=== PATIENT | female | born 1975 | race Caucasian/White ===

== ENCOUNTER 2018-07-16 14:41 | Emergency (ER) | payer OTHER, SELFPAY ==
[2018-07-16 14:49] VITALS: BP 158/100; PULSE 91; RESP 16; TEMP 36.6; O2SAT 99; BMI 44.2
--- NOTE | 2018-07-16 14:49 | DI.RAD.S_ITS ---
PROCEDURE: XR ANKLE LT MIN 3V INDICATIONS: injury pain TECHNIQUE: 3 views of the ankle were acquired. COMPARISON: [facility], CR, FOOT 3V LEFT, 02/21/2016, 18:24. FINDINGS: Bones: No fractures or dislocations. Ankle mortise is normally aligned. No suspicious bony lesions. Soft tissues: No tibiotalar joint effusion. Soft tissue swelling about the ankle is evident. IMPRESSION: Soft tissue swelling of the left ankle without acute fracture evident. Dictated by: James Simental M.D. on 07/16/2018 at 14:55 Approved by: James Simental M.D. on 07/16/2018 at 14:59
--- NOTE | 2018-07-16 15:26 | ED.LOWEXIN ---
HPI - Extremity Injury (Lower) <PIERCE Bender - Last Filed: 07/16/18 17:10> General Chief Complaint: Extremity Injury, Lower Stated Complaint: LEFT ANKLE 'JACKED UP' Time Seen by Provider: 07/16/18 14:53 Source: patient Mode of arrival: ambulatory Limitations: no limitations History of Present Illness HPI Narrative: there is no actual injury, there is old injury, from 5 years ago, dislocation, surgery done, ever since then, ankle slips in and out of place, friday is slipped out again and it has been hurting ever since, able to walk on it, and it hurts more when moving it or walking on it, denies any other issues, says she also has chronic swelling issues, but the swelling is way better now MD complaint: other Onset (ago): day(s) (4) Type of Injury: other (none) Severity: mild Relieving factors: rest Exacerbating factors: weight bearing and movement Associated symptoms: snap/pop sensation, swelling and ambulatory Other symptoms: none Related Data Home Medications Medication Instructions Recorded Confirmed [CBD] 1 dose PO PRN PRN #0 09/15/17 07/16/18 metoprolol tartrate 25 mg PO BID #0 09/15/17 07/16/18 amitriptyline 25 mg PO BEDTIME 07/16/18 07/16/18 folic acid 1 mg PO DAILY 07/16/18 07/16/18 levothyroxine [Synthroid] 1 tab PO DAILY 07/16/18 07/16/18 magnesium 1 tab PO DAILY 07/16/18 07/16/18 pantoprazole 20 mg PO BID PRN 07/16/18 07/16/18 Previous Rx's Medication Instructions Recorded tramadol [Ultram] 50 mg PO Q6H PRN #20 tab 07/16/18 Allergies Allergy/AdvReac Type Severity Reaction Status Date / Time adhesive Allergy Unknown HIVES FROM Verified 07/16/18 14:49 TAPE codeine Allergy Unknown VOMITING, Verified 07/16/18 14:49 HIVES iodine Allergy Unknown ITCHING, Verified 07/16/18 14:49 HIVES shellfish derived Allergy Unknown VOMITING Verified 07/16/18 14:49 Review of Systems <PIERCE Bender - Last Filed: 07/16/18 17:10> Review of Systems All systems reviewed & are unremarkable except as noted in HPI and below Constitutional Reports as per HPI Musculoskeletal Reports as per HPI, Reports abnormal gait, Denies deformity, Reports limited range of motion, Denies muscle weakness and Denies numbness Integumentary/Breasts Reports as per HPI, Denies unusual bruising and Denies wounds Neurologic Reports abnormal gait and Denies numbness Exam <PIERCE Bender - Last Filed: 07/16/18 17:10> Initial Vital Signs Initial Vital Signs: Vital Signs Temperature 97.8 F 07/16/18 14:49 Pulse Rate 91 H 07/16/18 14:49 Respiratory Rate 16 07/16/18 14:49 Blood Pressure 158/100 H 07/16/18 14:49 Pulse Oximetry 99 07/16/18 14:49 Const General: cooperative, healthy appearing, comfortable and well developed Nutritional Appearance: average body habitus Orientation: alert, awake and oriented x3 Resp Effort & Inspection: normal respiratory effort and able to speak in complete sentences Back/Spine/Pelvis Cervical Spine: cervical ROM normal Thoracic/Lumbar Spine: thoraco-lumbar ROM limited Skin General: no rashes or lesions noted, elasticity normal, turgor normal and warm Neuro General: alert, awake and oriented x3 Cranial Nerves: CN's II-XI intact bilaterally Cognition: normal cognition Speech: speech normal Motor: muscle tone normal throughout Sensory Exam: no sensory deficits noted Extrem General: normal to inspection and full ROM Right upper extremity: full ROM Left upper extremity: full ROM Right lower extremity: full ROM, normal capillary refill and ankle (mild ankle swelling, nontender) Left lower extremity: normal to inspection and full ROM Psych Appearance: grossly normal and well kempt Mental Status: mental status grossly normal Speech and Movement: speech and movement normal Mood: congruent mood Affect: normal affect Attitude: cooperative Thought Process: normal Thought Content: normal Judgment: judgment good <Yaa Munson MD - Last Filed: 07/16/18 20:17> Initial Vital Signs Initial Vital Signs: Vital Signs Temperature 97.8 F 07/16/18 14:49 Pulse Rate 91 H 07/16/18 14:49 Respiratory Rate 16 07/16/18 14:49 Blood Pressure 158/100 H 07/16/18 14:49 Pulse Oximetry 99 07/16/18 14:49 Course <PIERCE Bender - Last Filed: 07/16/18 17:10> Course Narrative: results and dc plan discussed, pt still insisting something is wrong with her ankle because bones pop in and out and it hurts, admits to no f/u with ortho or her pcp, suggested she f/u with ortho for continued pain and mri might be warranted, and we would put ankle stirrup/air brace on it and rx pain meds to help Orders Ordered: ED Orders 07/16/18 14:49 XR ankle LT min 3V Stat Vital Signs - 8 hr 07/16/18 14:49 07/16/18 16:55 Temperature 97.8 F Pulse Rate 91 H 77 Respiratory Rate 16 16 Blood Pressure 158/100 H Blood Pressure [Left Arm] 137/89 Pulse Oximetry 99 97 <Yaa Munson MD - Last Filed: 07/16/18 20:17> Orders Ordered: ED Orders 07/16/18 14:49 XR ankle LT min 3V Stat Vital Signs - 8 hr 07/16/18 14:49 07/16/18 16:55 Temperature 97.8 F Pulse Rate 91 H 77 Respiratory Rate 16 16 Blood Pressure 158/100 H Blood Pressure [Left Arm] 137/89 Pulse Oximetry 99 97 MDM - Extremity Injury (Lower) <PIERCE Bender - Last Filed: 07/16/18 17:10> Differential Diagnosis Likely ankle sprain and strain, ankle fracture and other (dislocation, ankle pain, oa) Imaging Data ankle xray: Radiologist's impression: ECG Data Interpretation: [address] [address] XRay Report Signed Patient: Jhoana Beard CMR#: [id number] : 1975Acct:[id number] Age/Sex: 43 / FDate of Service: 07/16/18 Loc: ED Accession Number: [id number] Procedure: XR ankle LT min 3V Ordering Provider: Yaa Munson MD PROCEDURE: XR ANKLE LT MIN 3V INDICATIONS: injury pain TECHNIQUE: 3 views of the ankle were acquired. COMPARISON: [facility], CR, FOOT 3V LEFT, 02/21/2016, 18:24. FINDINGS: Bones: No fractures or dislocations. Ankle mortise is normally aligned. No suspicious bony lesions. Soft tissues: No tibiotalar joint effusion. Soft tissue swelling about the ankle is evident. IMPRESSION: Soft tissue swelling of the left ankle without acute fracture evident. Dictated by: James Simental M.D. on 07/16/2018 at 14:55 Approved by: James Simental M.D. on 07/16/2018 at 14:59 Discharge Plan Departure Patient Disposition: Home Clinical Impression: Acute ankle pain Discharge Date/Time: 07/16/18 17:11 Interventions: ED Discharge Assessment Last Done: 07/16/18 17:11 Instructions: DI for Ankle Pain Activity Restrictions/Additional Instructions: wear splint daily for one week and then as needed for pain and support Prescriptions: New tramadol [Ultram] 50 mg tablet 50 mg PO Q6H PRN (Reason: pain) Qty: 20 RF: 0 No Action metoprolol tartrate 25 MG tablet 25 mg PO BID Qty: 0 RF: 0 [CBD] 1 dose PO PRN PRN (Reason: pain and sleep) Qty: 0 RF: 0 pantoprazole 20 mg tablet,delayed release (DR/EC) 20 mg PO BID PRN (Reason: Acid Reflux) RF: 0 amitriptyline 25 mg tablet 25 mg PO BEDTIME RF: 0 levothyroxine [Synthroid] 50 mcg tablet 1 tab PO DAILY RF: 0 folic acid 1 mg tablet 1 mg PO DAILY RF: 0 magnesium 1 tab PO DAILY RF: 0 Referrals: Zbigniew Samuels DO [Non-Staff] - Lg Ervin MD [Primary Care Provider] - Terrence Nam MD [Non-Staff] - Andry Lawton DO [Non-Staff] - Santy Kim MD [Non-Staff] - (follow up recommended in 3-5 days)
[2018-07-16 16:55] VITALS: BP 137/89; PULSE 77; RESP 16; O2SAT 97
== END 2018-07-16 17:11 | disposition home or self-care (01) ==
PROVIDERS: Emergency Provider Nurse Practitioner
DX: M25.572 Pain in left ankle and joints of left foot (principal)
CPT/HCPCS: 29540; 73610; 99282; 99283

== ENCOUNTER 2019-04-30 17:15 | Emergency (ER) | payer OTHER, SELFPAY ==
[2019-04-30 17:30] VITALS: BP 193/132; PULSE 106; RESP 16; TEMP 37; O2SAT 99; BMI 42.8
--- NOTE | 2019-04-30 17:30 | DI.CT.S_ITS ---
PROCEDURE: CT CHEST ABD PEL W CON INDICATIONS: ink printer rolled over him, severe left sided 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 2.5 mm thick coronal and sagittal reformats were acquired. Additional 7 mm thick coronal maximum intensity projection (MIP) reformats acquired through the lungs. Optional 10-minute delayed imaging may be performed from the kidneys to the bladder. For radiation dose reduction, the following was used: automated exposure control, adjustment of mA and/or kV according to patient size. COMPARISON: [facility], CT, ABDOMEN/PELVIS WITHOUT CONTRAS, 07/28/2013, 20:33. [facility], CT, ABDOMEN/PELVIS WITH CONTRAST, 12/12/2011, 20:29. [facility], CR, CHEST 1 VIEW, 09/15/2017, 13:05. FINDINGS: Image quality: Excellent. CHEST: Lungs: There are a few scattered bandlike groundglass opacities with a basilar predominance likely representing atelectasis. The differential includes pulmonary contusions but this is considered less likely. No pulmonary lacerations. No acute consolidation. No pneumothorax or hemothorax. Central and peripheral airways appear patent and normal in caliber. Mediastinum: No mediastinal hematomas. Heart size is normal. No pericardial effusion. Thoracic aorta and pulmonary arteries demonstrate normal size and enhancement. No mediastinal or hilar adenopathy. Esophagus is normal in caliber. No hiatal hernia. Chest wall: No rib fractures. No subcutaneous emphysema. No axillary or supraclavicular adenopathy. Thyroid gland demonstrates no discrete nodules. ABDOMEN: Solid organs: Liver is normal in size and enhancement, without lacerations. Gallbladder is surgically absent. Biliary system is mildly dilated with tapering into the ampulla of Vater. Findings may reflect sequelae of prior cholecystectomy. Pancreas enhances normally, without transection. Spleen is normal in size and enhancement, without lacerations. No adrenal hematomas. Both kidneys enhance normally, without hydronephrosis or lacerations. There are small hypodensities in the kidneys bilaterally which are too small to characterize but likely represent cysts. Peritoneum and bowel: No free fluid or air. Small and large bowel loops demonstrate normal wall thickness and caliber. Nodes and vessels: No retroperitoneal or mesenteric adenopathy. Aorta and inferior vena cava are normal in size and enhancement. Miscellaneous: No ventral hernias. PELVIS: Genitourinary: Bladder wall thickness is normal. The uterus is surgically absent. Miscellaneous: No inguinal hernias or adenopathy. Bones: Pelvic ring and hip joints appear intact. No vertebral compression fractures. IMPRESSION: 1. No definite acute traumatic abnormality in the chest, abdomen, or pelvis. 2. Bilateral scattered ground glass opacities likely represent areas of atelectasis. Pulmonary contusions are less likely given the morphology and distribution. 3. No discrete fracture is identified. Dictated by: Kade Palm M.D. on 04/30/2019 at 18:45 Approved by: Kade Palm M.D. on 04/30/2019 at 18:52
--- NOTE | 2019-04-30 17:34 | ED.TRAUMA ---
HPI - Trauma General Chief Complaint: Trauma Stated Complaint: thinks she has bruised or broken ribs Time Seen by Provider: 04/30/19 17:22 Source: patient Mode of arrival: ambulatory Limitations: no limitations History of Present Illness HPI narrative: Patient is a 43-year-old female who presents with left chest and left upper quadrant pain. She said yesterday her riding lawnmower of on top of her she was able to kick it off of her. Initially she thought she was okay however pain in her left upper quadrant and in her chest has gotten worse today. It hurts every time she moves or breathes. She is not vomiting. She denies any head injury no other injuries. Related Data Home Medications Medication Instructions Recorded Confirmed [CBD] 1 dose PO PRN PRN #0 09/15/17 07/16/18 metoprolol tartrate 25 mg PO BID #0 09/15/17 07/16/18 amitriptyline 25 mg PO BEDTIME 07/16/18 07/16/18 folic acid 1 mg PO DAILY 07/16/18 07/16/18 levothyroxine [Synthroid] 1 tab PO DAILY 07/16/18 07/16/18 magnesium 1 tab PO DAILY 07/16/18 07/16/18 pantoprazole 20 mg PO BID PRN 07/16/18 07/16/18 Previous Rx's Medication Instructions Recorded tramadol [Ultram] 50 mg PO Q6H PRN #20 tab 07/16/18 cyclobenzaprine 5 mg PO TID PRN #10 tab 04/30/19 Allergies Allergy/AdvReac Type Severity Reaction Status Date / Time adhesive Allergy Unknown HIVES FROM Verified 04/30/19 17:30 TAPE codeine Allergy Unknown VOMITING, Verified 04/30/19 17:30 HIVES iodine Allergy Unknown ITCHING, Verified 04/30/19 17:30 HIVES shellfish derived Allergy Unknown VOMITING Verified 04/30/19 17:30 Review of Systems Review of Systems ROS Unobtainable: All systems reviewed & are unremarkable except as noted in HPI and below Constitutional Denies chills, Denies fever(s), Denies lethargy and Denies weakness Cardiovascular Reports chest pain (Left side) Respiratory Denies cough, Denies hemoptysis, Reports pain on inspiration and Denies wheezing Gastrointestinal Gastrointestinal: Reports as per HPI and Reports abdominal pain Genitourinary Denies hematuria, Denies flank pain, Denies urinary incontinence and Denies urinary urgency Integumentary/Breasts Denies pruritus, Denies erythema, Denies rash and Denies wounds Neurologic Denies weakness Allergic/Immunologic Denies wheezing [facility] Medical History Hypothyroid (Acute) Social History Smoking Status: Unknown if ever smoked Social History Smoking Status: Unknown if ever smoked Exam Initial Vital Signs Initial Vital Signs: Vital Signs Temperature 98.6 F 04/30/19 17:30 Pulse Rate 106 H 04/30/19 17:30 Respiratory Rate 16 04/30/19 17:30 Blood Pressure 193/132 H 04/30/19 17:30 Pulse Oximetry 99 04/30/19 17:30 GENERAL: Overweight female appears in no acute distress and in [no acute] distress. HEENT: Head atraumatic,EOMI, pupils reactive, face symmetric, CARDIOVASCULAR: Regular rate and rhythm without murmurs, rubs or gallops. Significant tenderness to palpation of left chest but no contusions or abrasions. She is large crusted and there seems to be in no pain to palpation of the breast itself. RESPIRATORY: Breath sounds equal bilaterally, no wheezes rales or rhonchi. ABDOMEN: Soft, pain in left upper quadrant no guarding no rebound no contusion no abrasion EXTREMITIES: Normal range of motion, no clubbing or edema. Neurovascularly intact NEUROLOGICAL: Alert and oriented x4.Normal gait and speech. Cranial nerves II through XII grossly intact. SKIN: Warm, dry, no laceration, no petechiae, no rashes or lesions. Course Orders Ordered: Discontinued Medications Diphenhydramine HCl (Benadryl) 25 mg IV NOW ONE Stop: 04/30/19 17:48 Last Admin: 04/30/19 18:05 Dose: 25 mg Hydromorphone HCl (Dilaudid) 0.5 mg IV NOW ONE Stop: 04/30/19 17:33 Last Admin: 04/30/19 17:56 Dose: 0.5 mg Ketorolac Tromethamine (Toradol) 30 mg IV NOW ONE Stop: 04/30/19 19:05 Last Admin: 04/30/19 19:10 Dose: 30 mg Methylprednisolone (Solu-Medrol 125 Mg Vial) 125 mg IV NOW ONE Stop: 04/30/19 17:48 Last Admin: 04/30/19 17:56 Dose: 125 mg Vital Signs - 8 hr 04/30/19 17:30 Temperature 98.6 F Pulse Rate 106 H Respiratory Rate 16 Blood Pressure 193/132 H Pulse Oximetry 99 MDM - Trauma Lab Data Attestation: I reviewed the patient's lab results. Result diagrams: 04/30/19 17:39 04/30/19 17:39 Lab Results 04/30/19 04/30/19 Range/Units 17:39 17:39 WBC 10.5 (4.5-11.0) X10^3/uL RBC 4.92 (4.0-5.2) X10^6/uL Hgb 13.9 (12.0-16.0) g/dL Hct 41.1 (36-46) % MCV 83.5 (80-100) fL MCH 28.2 (26-34) PG MCHC 33.7 (30-36) % RDW 14.1 (11.6-14.8) % Plt Count 324 (150-400) X10^3/uL Neut % (Auto) 72.5 (50-75) % Lymph % (Auto) 21.4 L (25-40) % [place] % (Auto) 4.2 (3-14) % Eos % (Auto) 1.5 L (2-4) % Baso % (Auto) 0.4 (0-2) % Neut # (Auto) 7600 H (4953-8067) /uL Lymph # (Auto) 2200 (2574-7336) /uL [place] # (Auto) 400 (0-900) /uL Eos # (Auto) 200 (0-450) /uL Baso # (Auto) 0 (0-100) /uL Sodium 142 (137-145) mmol/L Potassium 4.1 (3.4-5.1) mmol/L Chloride 103 (98-107) mmol/L Carbon Dioxide 27 (22-32) mmol/L BUN 17 (7-17) mg/dL Creatinine 1.10 H (0.52-1.04) mg/dL Estimated GFR 53.7 L (>60) mL/min BUN/Creatinine Ratio 15.5 (6-22) Glucose 96 (70-100) mg/dL Calcium 9.7 (8.4-10.2) mg/dL Total Bilirubin 0.4 (0.2-1.3) mg/dL AST 30 (14-36) IU/L ALT 36 (9-52) IU/L Alkaline Phosphatase 117 (38-126) U/L Total Protein 8.3 H (6.3-8.2) g/dL Albumin 4.6 (3.5-5.0) g/dL Globulin 3.7 (1.7-4.1) g/dL Albumin/Globulin Ratio 1.2 (1.0-2.8) Imaging Data CT scan - abdomen: Radiologist's impression: PROCEDURE: CT CHEST ABD PEL W CON INDICATIONS: 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 2.5 mm thick coronal and sagittal reformats were acquired. Additional 7 mm thick coronal maximum intensity projection (MIP) reformats acquired through the lungs. Optional 10-minute delayed imaging may be performed from the kidneys to the bladder. For radiation dose reduction, the following was used: automated exposure control, adjustment of mA and/or kV according to patient size. COMPARISON: [facility], CT, ABDOMEN/PELVIS WITHOUT CONTRAS, 07/28/2013, 20:33. [facility], CT, ABDOMEN/PELVIS WITH CONTRAST, 12/12/2011, 20:29. [facility], CR, CHEST 1 VIEW, 09/15/2017, 13:05. FINDINGS: Image quality: Excellent. CHEST: Lungs: There are a few scattered bandlike groundglass opacities with a basilar predominance likely representing atelectasis. The differential includes pulmonary contusions but this is considered less likely. No pulmonary lacerations. No acute consolidation. No pneumothorax or hemothorax. Central and peripheral airways appear patent and normal in caliber. Mediastinum: No mediastinal hematomas. Heart size is normal. No pericardial effusion. Thoracic aorta and pulmonary arteries demonstrate normal size and enhancement. No mediastinal or hilar adenopathy. Esophagus is normal in caliber. No hiatal hernia. Chest wall: No rib fractures. No subcutaneous emphysema. No axillary or supraclavicular adenopathy. Thyroid gland demonstrates no discrete nodules. ABDOMEN: Solid organs: Liver is normal in size and enhancement, without lacerations. Gallbladder is surgically absent. Biliary system is mildly dilated with tapering into the ampulla of Vater. Findings may reflect sequelae of prior cholecystectomy. Pancreas enhances normally, without transection. Spleen is normal in size and enhancement, without lacerations. No adrenal hematomas. Both kidneys enhance normally, without hydronephrosis or lacerations. There are small hypodensities in the kidneys bilaterally which are too small to characterize but likely represent cysts. Peritoneum and bowel: No free fluid or air. Small and large bowel loops demonstrate normal wall thickness and caliber. Nodes and vessels: No retroperitoneal or mesenteric adenopathy. Aorta and inferior vena cava are normal in size and enhancement. Miscellaneous: No ventral hernias. PELVIS: Genitourinary: Bladder wall thickness is normal. The uterus is surgically absent. Miscellaneous: No inguinal hernias or adenopathy. Bones: Pelvic ring and hip joints appear intact. No vertebral compression fractures. IMPRESSION: 1. No definite acute traumatic abnormality in the chest, abdomen, or pelvis. 2. Bilateral scattered ground glass opacities likely represent areas of atelectasis. Pulmonary contusions are less likely given the morphology and distribution. 3. No discrete fracture is identified. Dictated by: Kade Palm M.D. on 04/30/2019 at 18:45 MDM Narrative Medical decision making narrative: Her pain is significantly better after some Dilaudid. CT is negative for any abnormality. At this time this is likely more of a contusion and some muscle stiffness. She is requesting a muscle relaxer. She does not want any narcotic medications. At this time she is feeling ready and able to go home. Discharge Plan Departure Patient Disposition: Home Clinical Impression: Contusion Qualifiers: Encounter type: initial encounter Contusion area: abdominal wall Qualified Code(s): S30.1XXA - Contusion of abdominal wall, initial encounter Discharge Date/Time: 04/30/19 19:20 Interventions: ED Discharge Assessment Last Done: 04/30/19 19:19 Instructions: Contusion, DI for Trauma Activity Restrictions/Additional Instructions: *You have been diagnosed with you likely have a contusion *What to do: Year CT scan today did not show any bruising or laceration of her internal organs. No broken bones. This is likely contusion. May ice 20-30 minutes at a time. Increased movement as tolerated in the no may hurt a little. Pain is extreme then stop. *Continue to take medications as directed Motrin 800 mg every 8 hours with food if needed for pain Flexeril 5 mg every 8 hours if needed for muscle spasm *Follow up with your primary care provider in 2-3 days *Return to ER if you should have increasing pain shortness of breath or any new, worsening or concerning symptoms Prescriptions: New cyclobenzaprine 5 mg tablet 5 mg PO TID PRN (Reason: muscle spasm) Qty: 10 RF: 0 No Action metoprolol tartrate 25 MG tablet 25 mg PO BID Qty: 0 RF: 0 [CBD] 1 dose PO PRN PRN (Reason: pain and sleep) Qty: 0 RF: 0 pantoprazole 20 mg tablet,delayed release (DR/EC) 20 mg PO BID PRN (Reason: Acid Reflux) RF: 0 amitriptyline 25 mg tablet 25 mg PO BEDTIME RF: 0 levothyroxine [Synthroid] 50 mcg tablet 1 tab PO DAILY RF: 0 folic acid 1 mg tablet 1 mg PO DAILY RF: 0 magnesium 1 tab PO DAILY RF: 0 tramadol [Ultram] 50 mg tablet 50 mg PO Q6H PRN (Reason: pain) Qty: 20 RF: 0 Referrals: Lg Ervin MD [Primary Care Provider] -
[2019-04-30 17:47] LABS: Add Manual Diff / Slide Review NO; Basophils Absolute Auto 0 /uL (0-100); Basophils Percent Auto 0.4 % (0-2); Eosinophils Absolute Auto 200 /uL (0-450); Eosinophils Percent Auto 1.5 % (2-4); Hematocrit 41.1 % (36-46); Hemoglobin 13.9 g/dL (12.0-16.0); Lymphocytes Absolute Auto 2200 /uL (1100-4500); Lymphocytes Percent Auto 21.4 % (25-40); Mean Corpuscular HGB Conc 33.7 % (30-36); Mean Corpuscular Hemoglobin 28.2 PG (26-34); Mean Corpuscular Volume 83.5 fL (80-100); Monocytes Absolute Auto 400 /uL (0-900); Monocytes Percent Auto 4.2 % (3-14); Neutrophils Absolute Auto 7600 /uL (1500-7000); Neutrophils Percent Auto 72.5 % (50-75); Platelet Count 324 X10^3/uL (150-400); Red Blood Cell Count 4.92 X10^6/uL (4.0-5.2); Red Cell Distribution Width 14.1 % (11.6-14.8); White Blood Cell Count 10.5 X10^3/uL (4.5-11.0)
[2019-04-30] MEDS: methylPREDNISolone 125 MG/2 ML VIAL IV (17:56)
[2019-04-30] MEDS: HYDROMORPHONE 1 MG INJ 0.5 MG IV (17:56)
[2019-04-30 17:58] LABS: Alanine Aminotransferase 36 IU/L (9-52); Albumin 4.6 g/dL (3.5-5.0); Albumin Globulin Ratio 1.2 (1.0-2.8); Alkaline Phosphatase 117 U/L (38-126); Aspartate Aminotransferase 30 IU/L (14-36); BUN Creatinine Ratio 15.5 (6-22); Bilirubin Total 0.4 mg/dL (0.2-1.3); Blood Urea Nitrogen 17 mg/dL (7-17); Calcium 9.7 mg/dL (8.4-10.2); Carbon Dioxide 27 mmol/L (22-32); Chloride 103 mmol/L (98-107); Estimated Glomerular Filt Rate 53.7 mL/min (>60); Globulin 3.7 g/dL (1.7-4.1); Glucose 96 mg/dL (70-100); HEMOLYSIS < 15 (0-50); Potassium 4.1 mmol/L (3.4-5.1); Sodium 142 mmol/L (137-145); Total Protein 8.3 g/dL (6.3-8.2)
[2019-04-30] MEDS: diphenhydrAMINE 50 MG/ML VIAL 25 MG IV (18:05)
[2019-04-30 19:03] VITALS: BP 155/105; BP 174/90; PULSE 85; RESP 16; O2SAT 100
[2019-04-30] MEDS: KETOROLAC 60 MG/2 ML VIAL 30 MG IV (19:10)
== END 2019-04-30 19:20 | disposition home or self-care (01) ==
PROVIDERS: Emergency Provider Emergency Medicine
DX: S30.1XXA Contusion of abdominal wall, initial encounter (principal); W31.89XA Contact with other specified machinery, initial encounter; Y93.H2 Activity, gardening and landscaping
CPT/HCPCS: 36591; 71260; 74177; 80053; 85025; 96374; 96375; 99282; 99284; J1170; J1200; J1885; J2930; Q9967

== ENCOUNTER → 2020-02-27 13:58 | Outpatient (CLI) | payer OTHER, SELFPAY ==
[2020-03-02 08:44] LABS: COVID19 Sendout Not Detected (Not Detected)
== END ==
PROVIDERS: Visit Provider Physician Assistant
DX: R05 Cough (principal); R11.0 Nausea; R43.0 Anosmia
CPT/HCPCS: 87635

== ENCOUNTER 2020-11-03 18:27 | Emergency (ER) | payer OTHER, SELFPAY ==
[2020-11-03 19:02] VITALS: BP 179/87; PULSE 87; RESP 18; TEMP 36.6; O2SAT 99; BMI 41.3
--- NOTE | 2020-11-03 21:01 | ED_ITS ---
HPI - Headache General Chief Complaint: Headache Stated Complaint: MIGRANE LEFT EYE RED SWELLING Time Seen by Provider: 11/03/20 18:46 Source: patient Mode of arrival: Wheelchair Limitations: no limitations History of Present Illness HPI Narrative: 45F nonsmoker with history of HTN and headaches presents with her significant other and a chief complaint of a severe, sudden onset left frontal headache that started a few hours prior to arrival. She states that she was in her normal state of health when she developed significant pain about 3 hours prior to arrival. She states it feels different than her typical migraines. Her pain was sudden and severe and behind her left eye. She states her vision was initially blurred in left eye, but denies any other or ongoing neurologic symptoms. Her pain is worse with bright lights or loud noise. She denies any focal neurologic problems such as numbness, tingling or weakness. She denies any recent trauma. She denies neck pain. She denies the use of blood thinners. She denies any fever or chills. She states she has frequent problems with her blood pressure and has had SVT in the past and 1 occasion led to a headache with eye pain very similar to this. She denies any palpitations, chest pain or shortness of breath. Related Data Home Medications Medication Instructions Recorded Confirmed metoprolol tartrate 25 mg PO BID #0 09/15/17 02/27/20 Allergies Allergy/AdvReac Type Severity Reaction Status Date / Time adhesive Allergy Unknown HIVES FROM Verified 11/03/20 19:02 TAPE codeine Allergy Unknown VOMITING, Verified 11/03/20 19:02 HIVES iodine Allergy Unknown ITCHING, Verified 11/03/20 19:02 HIVES shellfish derived Allergy Unknown VOMITING Verified 11/03/20 19:02 Review of Systems Review of Systems ROS Unobtainable: All systems reviewed & are unremarkable except as noted in HPI and below Constitutional Constitutional: Denies chills, Denies fatigue, Denies fever(s), Denies frequent falls, Denies lethargy and Denies weakness Eyes Eyes: Reports blurry vision, Reports change in vision, Denies eye discharge, Reports irritation, Denies loss of vision and Reports eye pain ENT Ears, Nose, Mouth, and Throat: Denies change in voice, Denies dizziness, Denies neck pain, Denies sore throat and Denies throat swelling Cardiovascular Cardiovascular: Denies chest pain, Denies irregular heart rhythm, Denies lightheadedness, Denies palpitations, Denies dyspnea, Denies dyspnea on exertion and Denies orthopnea Respiratory Respiratory: Denies cough, Denies dyspnea, Denies dyspnea on exertion and Denies wheezing Gastrointestinal Gastrointestinal: Denies abdominal pain, Denies change in bowel habits, Denies diarrhea, Reports nausea and Denies vomiting Musculoskeletal Musculoskeletal: Denies neck pain and Denies numbness Integumentary/Breasts Skin/Breast: Denies pruritus, Denies erythema, Denies rash and Denies wounds Neurologic Neurologic: Denies behavioral changes, Denies confusion, Denies dizziness, Denies frequent falls, Denies loss of vision, Denies numbness and Denies weakness Psychiatric Psychiatric: Denies anxiety, Denies behavioral changes, Denies confusion, Denies depression, Denies homicidal ideation and Denies suicidal ideation Endocrine Endocrine: Denies fatigue, Denies flushing and Denies palpitations Hematologic/Lymphatic Hematologic/Lymphatic: Denies easy bruising Allergic/Immunologic Allergic/Immunologic: Denies urticaria, Denies throat swelling and Denies wheezing Patient History Medical History Hypothyroid Social History Smoking Status: Never smoker Smoking Status: Never smoker alcohol intake frequency: holidays/special occasions only Substance Use Type: does not use Exam Narrative Exam Narrative: GENERAL: [45] year old patient appears stated age. Well-nour ished, well-developed patient, in obvious distress. Sitting in a dark room, towel over her eyes HEAD: Atraumatic. Normocephalic. EYES: Pupils equal and reactive. No scleral injection or watering of left eye. Pressure with Tonopen in left eye 15mmHg ENT: Nose without bleeding, purulent drainage. Throat without erythema, tonsillar hypertrophy or exudate. Airway patent. NECK: Trachea midline. Non tender CARDIOVASCULAR: Regular rate and rhythm without murmurs, gallops, or rubs. RESPIRATORY: Clear to auscultation. Breath sounds equal bilaterally. No wheezes, rales, or rhonchi. GASTROINTESTINAL: Abdomen soft, non-tender, nondistended. EXTREMITIES: No edema or joint tenderness. BACK: Nontender without deformity or crepitance. No flank tenderness. NEURO: AOx3. SKIN: No rash or erythema of visible areas NIH Stroke Scale 1a. LOC: Patient is alert and keenly responsive (0) 1b. LOC Questions: Patient answers both LOC questions accurately (0) 1c. LOC Commands: Patient performs both tasks correctly (0) 2. Best Gaze: Normal (0) 3. Visual: No visual loss (0) 4. Facial palsy: Normal symmetrical movements (0) 5. Motor arm: No drift (0) 6. Motor leg: No drift (0) 7. Limb ataxia: Absent (0) 8. Sensory: Normal (0) 9. Best language: No aphasia; normal (0) 10. Dysarthria: Normal (0) 11. Extinction and inattention: No abnormality (0) NIHSS: 0 Initial Vital Signs Initial Vital Signs: Vital Signs Temperature 98 F 11/03/20 19:02 Pulse Rate 87 11/03/20 19:02 Respiratory Rate 18 11/03/20 19:02 Blood Pressure 179/87 H 11/03/20 19:02 Pulse Oximetry 99 11/03/20 19:02 Course Course Course Narrative: significant improvement with above stated therapies Orders Ordered: Discontinued Medications Diphenhydramine HCl (Diphenhydramine 50 Mg/Ml Vial) 25 mg IV NOW ONE Stop: 11/03/20 21:07 Last Admin: 11/03/20 21:21 Dose: 25 mg Documented by: PERLA Ketorolac Tromethamine (Ketorolac 60 Mg/2 Ml Vial) 15 mg IV NOW ONE Stop: 11/03/20 21:54 Last Admin: 11/03/20 22:01 Dose: 15 mg Documented by: BRIELLE Metoclopramide HCl (Metoclopramide 10 Mg/2 Ml Inj) 10 mg IV NOW ONE Stop: 11/03/20 21:07 Last Admin: 11/03/20 21:21 Dose: 10 mg Documented by: PERLA Proparacaine HCl (Proparacaine 0.5% Ophth Pearl) 1 drops EYE-BOTH NOW ONE Stop: 11/04/20 00:00 Last Admin: 11/04/20 00:05 Dose: 2 drop Documented by: BRIELLE Vital Signs Vital signs: Vital Signs - 8 hr 11/04/20 00:00 Pulse Rate 87 Blood Pressure 137/89 Pulse Oximetry 97 MDM - Headache Lab Data Result diagrams: 11/03/20 19:40 11/03/20 19:40 Labs: Lab Results 11/03/20 11/03/20 Range/Units 19:40 19:40 WBC 11.6 H (4.5-11.0) X10^3/uL RBC 4.90 (4.0-5.2) X10^6/uL Hgb 13.5 (12.0-16.0) g/dL Hct 41.3 (36-46) % MCV 84.3 (80-100) fL MCH 27.5 (26-34) PG MCHC 32.6 (30-36) % RDW 13.8 (11.6-14.8) % Plt Count 298 (150-400) X10^3/uL Neut % (Auto) 80.6 H (50-75) % Lymph % (Auto) 15.0 L (25-40) % Kane % (Auto) 3.6 (3-14) % Eos % (Auto) 0.5 L (2-4) % Baso % (Auto) 0.3 (0-2) % Neut # (Auto) 9400 H (8151-2175) /uL Lymph # (Auto) 1700 (5966-6130) /uL Kane # (Auto) 400 (0-900) /uL Eos # (Auto) 100 (0-450) /uL Baso # (Auto) 0 (0-100) /uL Sodium 139 (137-145) mmol/L Potassium 3.9 (3.4-5.1) mmol/L Chloride 104 (98-107) mmol/L Carbon Dioxide 31 (22-32) mmol/L BUN 20 H (7-17) mg/dL Creatinine 1.09 H (0.52-1.04) mg/dL Estimated GFR 53.8 L (>60) mL/min BUN/Creatinine Ratio 18.3 (6-22) Glucose 109 H (70-100) mg/dL Calcium 9.8 (8.4-10.2) mg/dL Imaging Data CT scan - head: Radiologist's Impression: Jhoana Beard 45 F [address] Scan ReportSigned Patient: Jhoana Beard CMR#: [id number]: 1975Acct:[id number]/Sex: 45 / FDate of Service: 11/03/20Loc: EDAccession Number: [id number] Procedure: CT head/brain wo con Ordering Provider: Stephon Gonzales D.O. PROCEDURE: CT HEAD/BRAIN WO CON INDICATIONS: sudden, severe headache, worse than migraines, different TECHNIQUE: Noncontrast 4.5 mm thick angled axial sections acquired from the foramen magnum to the vertex, with coronal and sagittal reformats. For radiation dose reduction, the following was used: automated exposure control, adjustment of mA and/or kV according to patient size. COMPARISON: None. FINDINGS: Image quality: Excellent. CSF spaces: Basal cisterns are patent. No extra-axial fluid collections. Ventricles are normal in size and shape. Brain: No midline shift. No intracranial masses or hemorrhage. Hinojosa-white matter interface is normal. Skull and face: Calvarium and visualized facial bones are intact, without suspicious lesions. Sinuses: Visualized sinuses and mastoids are clear. IMPRESSION: No acute intracranial abnormality. Dictated by: Chava Godoy M.D. on 11/03/2020 at 21:43 Approved by: Chava Godoy M.D. on 11/03/2020 at 21:43 [facility] Narrative Medical decision making narrative: Headache considerations include, but not limited to: Subarachnoid hemorrhage, but unlikely as patient denies sudden onset of pain, not worst of life, or neck pain Meningitis considered, but thought unlikely given lack of Brudzinski's, Kernig's sign, altered mental status or fever Giant cell arteritis considered, but thought unlikely given lack of unilateral findings, pain in pentecostalism, vision change HTN Emergency considered, but thought unlikely given normal vitals Other serious diagnoses considered unlikely given lack of red flag findings such as sudden onset, increasing frequency, immunocompromise, systemic signs (fever, chills, stiff neck, or rash), focal neurologic findings, trauma, blood thinners, etc. Acute angle closure glaucoma considered given eye pain and vision change initially, but pupils equal and reactive, minimal erythema, no watering, no more pain and pressure 15mmHg Discharge Plan Departure Patient Disposition: Home Clinical Impression: Headache Qualifiers: Headache type: unspecified Headache chronicity pattern: acute headache Intractability: not intractable Qualified Code(s): R51.9 - Headache, unspecified Instructions: DI for Headache Activity Restrictions/Additional Instructions: *You have been diagnosed with [atypical headache ] *What to do: *Take medications as directed *Follow up with your primary care provider in 2-3 days, call for an appointment. Let them know you were seen in the Emergency Department and that we ask that you be seen in follow up *Return to ER if you should have any new, worsening or concerning symptoms Prescriptions: No Action metoprolol tartrate 25 MG tablet 25 mg PO BID Qty: 0 RF: 0 Referrals: Lg Ervin MD [Primary Care Provider] -
--- NOTE | 2020-11-03 21:06 | DI.CT.S_ITS ---
PROCEDURE: CT HEAD/BRAIN WO CON INDICATIONS: sudden, severe headache, worse than migraines, different TECHNIQUE: Noncontrast 4.5 mm thick angled axial sections acquired from the foramen magnum to the vertex, with coronal and sagittal reformats. For radiation dose reduction, the following was used: automated exposure control, adjustment of mA and/or kV according to patient size. COMPARISON: None. FINDINGS: Image quality: Excellent. CSF spaces: Basal cisterns are patent. No extra-axial fluid collections. Ventricles are normal in size and shape. Brain: No midline shift. No intracranial masses or hemorrhage. Hinojosa-white matter interface is normal. Skull and face: Calvarium and visualized facial bones are intact, without suspicious lesions. Sinuses: Visualized sinuses and mastoids are clear. IMPRESSION: No acute intracranial abnormality. Dictated by: Chava Godoy M.D. on 11/03/2020 at 21:43 Approved by: Chava Godoy M.D. on 11/03/2020 at 21:43
[2020-11-03 21:18] LABS: BUN Creatinine Ratio 18.3 (6-22); Blood Urea Nitrogen 20 mg/dL (7-17); Calcium 9.8 mg/dL (8.4-10.2); Carbon Dioxide 31 mmol/L (22-32); Chloride 104 mmol/L (98-107); Estimated Glomerular Filt Rate 53.8 mL/min (>60); Glucose 109 mg/dL (70-100); HEMOLYSIS < 15 (0-50); Potassium 3.9 mmol/L (3.4-5.1); Sodium 139 mmol/L (137-145)
[2020-11-03 21:20] LABS: Add Manual Diff / Slide Review NO; Basophils Absolute Auto 0 /uL (0-100); Basophils Percent Auto 0.3 % (0-2); Eosinophils Absolute Auto 100 /uL (0-450); Eosinophils Percent Auto 0.5 % (2-4); Hematocrit 41.3 % (36-46); Hemoglobin 13.5 g/dL (12.0-16.0); Lymphocytes Absolute Auto 1700 /uL (1100-4500); Mean Corpuscular HGB Conc 32.6 % (30-36); Mean Corpuscular Hemoglobin 27.5 PG (26-34); Mean Corpuscular Volume 84.3 fL (80-100); Monocytes Absolute Auto 400 /uL (0-900); Monocytes Percent Auto 3.6 % (3-14); Neutrophils Absolute Auto 9400 /uL (1500-7000); Neutrophils Percent Auto 80.6 % (50-75); Platelet Count 298 X10^3/uL (150-400); Red Cell Distribution Width 13.8 % (11.6-14.8); White Blood Cell Count 11.6 X10^3/uL (4.5-11.0)
[2020-11-03] MEDS: diphenhydrAMINE 50 MG/ML VIAL 25 MG IV (21:21)
[2020-11-03] MEDS: METOCLOPRAMIDE 10 MG/2 ML INJ IV (21:21)
[2020-11-03] MEDS: KETOROLAC 60 MG/2 ML VIAL 15 MG IV (22:01)
--- NOTE | 2020-11-03 22:04 | PC.NURSE ---
pt reports she has a history of migraines this one started about 1700 today. pain is to the top of the head and to the left side of the head. states is feeling better after initial medications.
[2020-11-03 22:07] VITALS: BP 177/95; PULSE 80; O2SAT 98
[2020-11-03 22:30] VITALS: BP 157/97; PULSE 100; O2SAT 98
[2020-11-03 23:00] VITALS: BP 141/74; PULSE 78; O2SAT 96
[2020-11-03 23:30] VITALS: BP 133/79; PULSE 79; O2SAT 96
[2020-11-04] VITALS: BP 137/89; PULSE 87; O2SAT 97
[2020-11-04] MEDS: PROPARACAINE 0.5% OPHTH SOL 1 DROPS EYE-BOTH (00:05)
== END 2020-11-04 00:13 | disposition home or self-care (01) ==
PROVIDERS: Emergency Provider Emergency Medicine
DX: R51.9 Headache, unspecified (principal); H53.9 Unspecified visual disturbance; E03.9 Hypothyroidism, unspecified
CPT/HCPCS: 70450; 80048; 85025; 96374; 96375; 99281; 99284; J1200; J1885; J2765

== ENCOUNTER → 2021-02-22 10:04 | Outpatient (CLI) | payer OTHER, SELFPAY ==
--- NOTE | 2021-02-22 10:05 | DI.ECHO.S_ITS ---
[place] [facility]---------+ [facility] +---------+ : : [address] : : : : [id number] : : : : Phone: [phone]+ Echocardiogram Report + + :Name: SAMIR BAUTISTA Study Date: 02/22/2021 Height: 63.5 in: :[facility] ReadingLocation: Weight: 245 lb : : Gender: Female BSA: 2.1 m2 : :: 1975 Age: 45 yrs BP: 133/70 mmHg: :Reason For Study: HYPERTENSION : :Ordering Physician: ANA, : :SULEMAN Matthew Performed By: Afua Min : :Referring: SULEMAN PEREZ : + + Interpretation Summary This is a technically adequate study enhanced with Definity echocontrast. Normal LV size, wall thickness, wall motion and LV systolic function. EF is 55-60%. Normal chamber sizes. No significant valvular abnormalities. No prior study available for comparison. Procedure: A two-dimensional transthoracic echocardiogram with color flow and Doppler was performed. There is no prior echocardiogram noted for this patient. A contrast injection of Definity was performed to improve assessment of LV function. The patient was in sinus rhythm with heart rates between 70-88 bpm during the exam. Left Ventricle: The left ventricle is normal in size and wall thickness. The ejection fraction is estimated to be 55-60%. Diastolic parameters suggest probable normal left ventricular diastolic function and normal filling pressures. Right Ventricle: The right ventricle is normal in size and function. Atria: The left atrial size is normal. Right atrial size is normal. There is no Doppler evidence for an interatrial shunt. Mitral Valve: The mitral valve is normal in structure and function. There is trace mitral regurgitation. Aortic Valve: The aortic valve is trileaflet. The aortic valve opens well. There is no aortic valve stenosis. No aortic regurgitation is present. Tricuspid Valve: The tricuspid valve is normal in structure and function. There is trace tricuspid regurgitation. Pulmonary artery pressures cannot be estimated because of the lack of a measurable TR jet velocity but the IVC suggests a CVP of around 3 mmHg. Pulmonic Valve: The pulmonic valve leaflets are thin and pliable; valve motion is normal. There is no pulmonic valvular regurgitation. Great Vessels: The aortic root is normal size. The dimensions of the ascending aorta are normal. The IVC is of normal diameter and collapses greater than 50% with a sniff. This suggests a low right atrial pressure of 3 mm Hg. Pericardium/ Pleura There is no pericardial effusion. There is no pleural effusion. MMode/2D Measurements & Calculations LVIDd: 5.4 cm LVOT diam: 2.0 cm LVIDs: 3.6 cm Ao root diam: 2.6 cm FS: 33.2 % asc Aorta Diam: 2.7 cm EPSS: 0.63 cm Ao Arch Diam (Prox Trans): 2.7 cm IVSd: 0.97 cm LVPWd: 0.78 cm LV partida. diameter/BSA (cm/m^2): 2.5 LV sys. diameter/BSA (cm/m^2): 1.7 LA A2 area: 17.5 cm2 RA long axis: 4.2 cm LA A4 area: 18.9 cm2 RA area: 13.4 cm2 LA length (vol): 5.1 cm RA vol: 36.1 ml LA vol: 55.5 ml RA : 17.0 ml/m2 LA vol index: 26.2 ml/m2 IVC diam: 1.1 cm RVD1 (basal): 3.7 cm TAPSE: 1.8 cm Doppler Measurements & Calculations Ao V2 max: 151.6 cm/sec LVOT Max Magdi: 86.9 cm/sec Ao V2 mean: 107.3 cm/sec LV V1 max P.0 mmHg Ao max P.2 mmHg LV V1 VTI: 22.3 cm Ao mean P.1 mmHg SAM(I,D): 2.2 cm2 Ao V2 VTI: 31.0 cm SAM(V,D): 1.7 cm2 sev ratio: 0.72 SAM indexed to BSA (cm^2/m^2): 1.0 MV E max magdi: 69.3 cm/sec PA V2 max: 119.2 cm/sec MV A max magdi: 60.3 cm/sec PA V2 mean: 82.3 cm/sec MV E/A: 1.2 PA mean P.1 mmHg Med Peak E' Magdi: 7.4 cm/sec PA pr(Accel): 31.0 mmHg E/E' med: 9.3 Lat Peak E' Magdi: 7.7 cm/sec E/E' lat: 9.0 E/e' average: 9.2 MV dec time: 0.15 sec SV(LVOT): 66.8 ml Electronically signed by: Dedra Deng M.D. on Reading Physician:02/23/2021 01:00 AM
== END ==
PROVIDERS: PCP Family Medicine; Referring Provider Family Medicine; Visit Provider Family Medicine
DX: R00.2 Palpitations (principal); I10 Essential (primary) hypertension; E78.5 Hyperlipidemia, unspecified
CPT/HCPCS: C8929; Q9957

== ENCOUNTER → 2021-03-01 10:01 | Outpatient (CLI) | payer OTHER, SELFPAY ==
[2021-03-01 11:32] LABS: Cholesterol 292 mg/dL (140-199); HDL Cholesterol 48 mg/dL (40-60); LDL Cholesterol Calculated 206 mg/dL (<100); Triglycerides 190 mg/dL (35-150)
== END ==
PROVIDERS: PCP Family Medicine; Referring Provider Internal Medicine Cardiovascular Disease; Visit Provider Internal Medicine Cardiovascular Disease
DX: E78.5 Hyperlipidemia, unspecified (principal)
CPT/HCPCS: 36415; 80061

== ENCOUNTER → 2021-04-30 13:28 | Outpatient (CLI) | payer OTHER, SELFPAY ==
[2021-04-30 14:09] LABS: COVID19 -Nasal RAPID Negative (Negative)
== END ==
PROVIDERS: PCP Family Medicine; Visit Provider Physician Assistant
DX: R05 Cough (principal); R11.0 Nausea; R11.10 Vomiting, unspecified; R50.9 Fever, unspecified; Z20.822 Contact with and (suspected) exposure to COVID-19
CPT/HCPCS: 87635

== ENCOUNTER 2021-06-28 12:57 | Emergency (ER) | payer OTHER, SELFPAY ==
[2021-06-28] VITALS (9 sets, daily range): BP systolic 134–178; BP diastolic 69–104; PULSE 70–91; RESP 20–72; TEMP 36.6; O2SAT 96–100; BMI 42.9
[2021-06-28 13:44] LABS: COVID19 -Nasal RAPID Negative (Negative)
--- NOTE | 2021-06-28 14:20 | ED_ITS ---
HPI - Abdominal Pain <Aleksey Angeles PA-C - Last Filed: 06/28/21 19:01> General Chief Complaint: Abdominal Pain Stated Complaint: Sick for 3 Wks, SOB, Passing Blood, Abd Pain Time Seen by Provider: 06/28/21 14:16 Source: patient Mode of arrival: Ambulatory Limitations: no limitations History of Present Illness HPI narrative: Jhoana presents today with chief complaint of continued cough, fatigue, and abdominal pain that originally started about 3 weeks ago. She just finished a course of azithromycin and prednisone prescribed by her PCP which has not helped her symptoms. She reports that earlier this week she had 2 bowel movements that had blood in them but that seems to have cleared up. She states that her abdominal pain is similar to her her previous Crohn's exacerbations which she typically manages with clear liquid diet. She has not tried any dietary restrictions to help with her symptoms at this time. Her bloody stool has resolved. She no longer has any diarrhea, constipation, she denies any nausea, vomiting, chest pain, difficulty breathing, fever, headache, vision c hanges or any other acute concerns or complaints at this time. Related Data Home Medications Medication Instructions Recorded Confirmed metoprolol tartrate 25 mg tablet 25 mg PO BID #0 09/15/17 04/30/21 Previous Rx's Medication Instructions Recorded dicyclomine 20 mg tablet 20 mg PO TID PRN #10 tab 04/30/21 Allergies Allergy/AdvReac Type Severity Reaction Status Date / Time adhesive Allergy Unknown HIVES FROM Verified 04/30/21 13:21 TAPE codeine Allergy Unknown VOMITING, Verified 04/30/21 13:21 HIVES iodine Allergy Unknown ITCHING, Verified 04/30/21 13:21 HIVES shellfish derived Allergy Unknown VOMITING Verified 04/30/21 13:21 Review of Systems <Aleksey Angeles PA-C - Last Filed: 06/28/21 19:01> Review of Systems Narrative: As per HPI Patient History <Aleksey Angeles PA-C - Last Filed: 06/28/21 19:01> Medical History (Updated 06/28/21 @ 16:02 by Aleksey Angeles PA-C) Hypothyroid Social History Smoking Status: Never smoker Smoking Status: Never smoker alcohol intake frequency: holidays/special occasions only Substance Use Type: marijuana Exam <Aleksey Angeles PA-C - Last Filed: 06/28/21 19:01> Narrative Exam Narrative: Const General: cooperative, healthy appearing, comfortable and no acute distress Nutritional Appearance: Elevated BMI Orientation: alert and oriented x3 [facility] Head: normal to inspection and normocephalic Ears: hearing grossly normal bilaterally, external ears normal, TM's normal bilaterally, EAC's normal, mastoids normal and no periauricular adenopathy Nose: external nose normal, nares normal and no nasal discharge Face and sinus: normal facial exam, sinuses nontender and face symmetric Mouth: oral mucosae normal, lip normal, tongue normal and moist mucous membranes Teeth and gingiva: dentition normal and gingiva normal Throat: posterior oropharynx normal, uvula midline, no postnasal drainage and no uvular edema Eyes periorbital findings normal, eyelids normal, conjunctivae normal Neck: normal visual inspection, full ROM, no lymphadenopathy, no meningeal signs and supple Resp normal respiratory effort, able to speak in complete sentences, not labored and no respiratory distress, clear to auscultation bilaterally, no crackles, no rales and no wheezes Cardio regular rate regular rhythm Heart Sounds: no gallops, no murmurs and no rubs GI: Nondistended, normal bowel sounds, no masses noted. Mild diffuse tenderness with increased tenderness in left lower quadrant. No guarding noted. No rebound tenderness. Extrem normal to inspection, no pedal edema and no calf tenderness Neuro Alert and Oriented x3, normal gait, moves all extremities. Initial Vital Signs Initial Vital Signs: Vital Signs Temperature 97.8 F 06/28/21 13:03 Pulse Rate 91 H 06/28/21 13:03 Respiratory Rate 20 06/28/21 13:03 Blood Pressure 178/103 H 06/28/21 13:03 Pulse Oximetry 96 06/28/21 13:03 <Maegan Reyez MD - Last Filed: 06/30/21 02:41> Initial Vital Signs Initial Vital Signs: Vital Signs Temperature 97.8 F 06/28/21 13:03 Pulse Rate 91 H 06/28/21 13:03 Respiratory Rate 20 06/28/21 13:03 Blood Pressure 178/103 H 06/28/21 13:03 Pulse Oximetry 96 06/28/21 13:03 Course <Aleksey Angeles PA-C - Last Filed: 06/28/21 19:01> Orders Ordered: Discontinued Medications Sodium Chloride (Normal Saline 0.9%) 1,000 mls @ 150 mls/hr IV CONT HORTENCIA Last Infusion: 06/28/21 16:21 Dose: 0 mls/hr Documented by: Admin: 06/28/21 15:26 Dose: 150 mls/hr Documented by: DENIS Vital Signs Vital signs: Vital Signs - 8 hr 06/28/21 13:03 06/28/21 14:01 06/28/21 14:03 Temperature 97.8 F Pulse Rate 91 H 86 82 Respiratory Rate 20 Blood Pressure 178/103 H 174/104 H Pulse Oximetry 96 97 98 06/28/21 14:30 06/28/21 15:00 06/28/21 15:14 Temperature Pulse Rate 79 70 81 Respiratory Rate Blood Pressure 160/91 H 134/69 139/96 H Pulse Oximetry 96 96 99 06/28/21 15:27 06/28/21 15:30 06/28/21 16:21 Temperature Pulse Rate 73 71 Respiratory Rate 72 H Blood Pressure 154/86 H 140/81 141/80 H Pulse Oximetry 98 100 100 <Maegan Reyez MD - Last Filed: 06/30/21 02:41> Orders Ordered: Discontinued Medications Sodium Chloride (Normal Saline 0.9%) 1,000 mls @ 150 mls/hr IV CONT HORTENCIA Last Infusion: 06/28/21 16:21 Dose: 0 mls/hr Documented by: Admin: 06/28/21 15:26 Dose: 150 mls/hr Documented by: DENIS Vital Signs Vital signs: Vital Signs - 8 hr 06/28/21 13:03 06/28/21 14:01 06/28/21 14:03 Temperature 97.8 F Pulse Rate 91 H 86 82 Respiratory Rate 20 Blood Pressure 178/103 H 174/104 H Pulse Oximetry 96 97 98 06/28/21 14:30 06/28/21 15:00 06/28/21 15:14 Temperature Pulse Rate 79 70 81 Respiratory Rate Blood Pressure 160/91 H 134/69 139/96 H Pulse Oximetry 96 96 99 06/28/21 15:27 06/28/21 15:30 06/28/21 16:21 Temperature Pulse Rate 73 71 Respiratory Rate 72 H Blood Pressure 154/86 H 140/81 141/80 H Pulse Oximetry 98 100 100 MDM - Abdominal Pain <Aleksey Angeles PA-C - Last Filed: 06/28/21 19:01> Lab Data Result diagrams: 06/28/21 13:20 06/28/21 13:20 Labs: Lab Results 06/28/21 06/28/21 06/28/21 Range/Units 13:05 13:20 13:20 WBC 12.2 H (4.5-11.0) X10^3/uL RBC 4.77 (4.0-5.2) X10^6/uL Hgb 13.5 (12.0-16.0) g/dL Hct 41.0 (36-46) % MCV 85.8 (80-100) fL MCH 28.3 (26-34) PG MCHC 32.9 (30-36) % RDW 13.7 (11.6-14.8) % Plt Count 298 (150-400) X10^3/uL Neut % (Auto) 76.3 H (50-75) % Lymph % (Auto) 18.7 L (25-40) % [place] % (Auto) 3.8 (3-14) % Eos % (Auto) 1.0 L (2-4) % Baso % (Auto) 0.2 (0-2) % Neut # (Auto) 9300 H (7680-8643) /uL Lymph # (Auto) 2300 (0217-5891) /uL [place] # (Auto) 500 (0-900) /uL Eos # (Auto) 100 (0-450) /uL Baso # (Auto) 0 (0-100) /uL Sodium 141 (137-145) mmol/L Potassium 4.4 (3.4-5.1) mmol/L Chloride 104 (98-107) mmol/L Carbon Dioxide 33 H (22-32) mmol/L BUN 18 H (7-17) mg/dL Creatinine 1.01 (0.52-1.04) mg/dL Estimated GFR 58.5 L (>60) mL/min BUN/Creatinine Ratio 17.8 (6-22) Glucose 95 (70-100) mg/dL Calcium 9.5 (8.4-10.2) mg/dL Total Bilirubin 0.6 (0.2-1.3) mg/dL AST 28 (14-36) IU/L ALT 36 H (<35) IU/L Alkaline Phosphatase 99 (38-126) U/L Total Protein 7.6 (6.3-8.2) g/dL Albumin 4.3 (3.5-5.0) g/dL Globulin 3.3 (1.7-4.1) g/dL Albumin/Globulin Ratio 1.3 (1.0-2.8) Lipase 143 (23-300) U/L SARS-CoV-2 (PCR) Negative (Negative) Point of care testing: Urine Dip Bedside Urine Glucose Negative Bedside Urine Bilirubin - Negative Bedside Urine Ketone - Negative Urine Specific [place] 1.015 Bedside Urine Occult Blood - Negative Bedside Urine pH 7 Bedside Urine Protein - Negative Bedside Urine Nitrite - Negative Bedside Urine Leukocytes - Negative Esterase MDM Narrative Medical decision making narrative: Patient is well-appearing at this time. She has a slight bump in her to WBCs. The rest of her laboratory evaluation is unremarkable. CT does not show any significant obstruction, diverticulitis or other acute abnormalities. I suspect that her increased abdominal discomfort is due to the steroids and antibiotics that she recently finished. She is tolerating oral intake normally and does not have any systemic signs of illness at this time. ER return precautions were discussed with the patient. Patient verbalizes understanding and agrees to plan and has no further concerns at this time. Thank you A [id number] system was used with the dictation of this note. Please disreg tiffany any spelling or grammatical errors. <Maegan Reyez MD - Last Filed: 06/30/21 02:41> Lab Data Labs: Lab Results 06/28/21 06/28/21 06/28/21 Range/Units 13:05 13:20 13:20 WBC 12.2 H (4.5-11.0) X10^3/uL RBC 4.77 (4.0-5.2) X10^6/uL Hgb 13.5 (12.0-16.0) g/dL Hct 41.0 (36-46) % MCV 85.8 (80-100) fL MCH 28.3 (26-34) PG MCHC 32.9 (30-36) % RDW 13.7 (11.6-14.8) % Plt Count 298 (150-400) X10^3/uL Neut % (Auto) 76.3 H (50-75) % Lymph % (Auto) 18.7 L (25-40) % [place] % (Auto) 3.8 (3-14) % Eos % (Auto) 1.0 L (2-4) % Baso % (Auto) 0.2 (0-2) % Neut # (Auto) 9300 H (8975-3236) /uL Lymph # (Auto) 2300 (7084-7785) /uL [place] # (Auto) 500 (0-900) /uL Eos # (Auto) 100 (0-450) /uL Baso # (Auto) 0 (0-100) /uL Sodium 141 (137-145) mmol/L Potassium 4.4 (3.4-5.1) mmol/L Chloride 104 (98-107) mmol/L Carbon Dioxide 33 H (22-32) mmol/L BUN 18 H (7-17) mg/dL Creatinine 1.01 (0.52-1.04) mg/dL Estimated GFR 58.5 L (>60) mL/min BUN/Creatinine Ratio 17.8 (6-22) Glucose 95 (70-100) mg/dL Calcium 9.5 (8.4-10.2) mg/dL Total Bilirubin 0.6 (0.2-1.3) mg/dL AST 28 (14-36) IU/L ALT 36 H (<35) IU/L Alkaline Phosphatase 99 (38-126) U/L Total Protein 7.6 (6.3-8.2) g/dL Albumin 4.3 (3.5-5.0) g/dL Globulin 3.3 (1.7-4.1) g/dL Albumin/Globulin Ratio 1.3 (1.0-2.8) Lipase 143 (23-300) U/L SARS-CoV-2 (PCR) Negative (Negative) Point of care testing: Urine Dip Bedside Urine Glucose Negative Bedside Urine Bilirubin - Negative Bedside Urine Ketone - Negative Urine Specific [place] 1.015 Bedside Urine Occult Blood - Negative Bedside Urine pH 7 Bedside Urine Protein - Negative Bedside Urine Nitrite - Negative Bedside Urine Leukocytes - Negative Esterase Discharge Plan Departure Patient Disposition: Home Clinical Impression: Viral syndrome Activity Restrictions/Additional Instructions: It was very nice to meet you this afternoon. Your evaluation today has been reassuring. Please continue to use [id number] medications to treat your symptoms. I expect your symptoms to improve over the next week. If he develops fever, worsening abdominal pain, recurrent bloody stools, or any other acute concerns or complaints do not hesitate return immediately for re-evaluation. Thank you Aleksey Angeles PA-C Prescriptions: No Action dicyclomine 20 mg tablet 20 mg PO TID PRN (Reason: cramping abdominal pain) Qty: 10 RF: 0 metoprolol tartrate 25 MG tablet 25 mg PO BID Qty: 0 RF: 0 Referrals: Linda Ferrer DO [Primary Care Provider] - <Maegan Reyez MD - Last Filed: 06/30/21 02:41> [facility]: I was immediately available in the department for consultation throughout this patient's visit. I agree with documentation as above. Maegan Reyez MD
[2021-06-28 14:47] LABS: Add Manual Diff / Slide Review NO; Basophils Absolute Auto 0 /uL (0-100); Basophils Percent Auto 0.2 % (0-2); Eosinophils Absolute Auto 100 /uL (0-450); Hemoglobin 13.5 g/dL (12.0-16.0); Lymphocytes Absolute Auto 2300 /uL (1100-4500); Lymphocytes Percent Auto 18.7 % (25-40); Mean Corpuscular HGB Conc 32.9 % (30-36); Mean Corpuscular Hemoglobin 28.3 PG (26-34); Mean Corpuscular Volume 85.8 fL (80-100); Monocytes Absolute Auto 500 /uL (0-900); Monocytes Percent Auto 3.8 % (3-14); Neutrophils Absolute Auto 9300 /uL (1500-7000); Neutrophils Percent Auto 76.3 % (50-75); Platelet Count 298 X10^3/uL (150-400); Red Blood Cell Count 4.77 X10^6/uL (4.0-5.2); Red Cell Distribution Width 13.7 % (11.6-14.8); White Blood Cell Count 12.2 X10^3/uL (4.5-11.0)
[2021-06-28 14:59] LABS: Alanine Aminotransferase 36 IU/L (<35); Albumin 4.3 g/dL (3.5-5.0); Albumin Globulin Ratio 1.3 (1.0-2.8); Alkaline Phosphatase 99 U/L (38-126); Aspartate Aminotransferase 28 IU/L (14-36); BUN Creatinine Ratio 17.8 (6-22); Bilirubin Total 0.6 mg/dL (0.2-1.3); Blood Urea Nitrogen 18 mg/dL (7-17); Calcium 9.5 mg/dL (8.4-10.2); Carbon Dioxide 33 mmol/L (22-32); Chloride 104 mmol/L (98-107); Estimated Glomerular Filt Rate 58.5 mL/min (>60); Globulin 3.3 g/dL (1.7-4.1); Glucose 95 mg/dL (70-100); HEMOLYSIS < 15 (0-50); Lipase 143 U/L (23-300); Potassium 4.4 mmol/L (3.4-5.1); Sodium 141 mmol/L (137-145); Total Protein 7.6 g/dL (6.3-8.2)
--- NOTE | 2021-06-28 15:01 | DI.CT.S_ITS ---
PROCEDURE: CT ABDOMEN PELVIS WO CON INDICATIONS: LLQ abd pain TECHNIQUE: Noncontrast 5 mm thick sections acquired from the diaphragms to the symphysis. 5 mm coronal and sagittal reformats were then performed. For radiation dose reduction, the following was used: automated exposure control, adjustment of mA and/or kV according to patient size. COMPARISON: [facility], CT, ABDOMEN/PELVIS WITHOUT CONTRAS, 07/28/2013, 20:33. [facility], CT, CT CHEST ABD PEL W CON, 04/30/2019, 18:09. FINDINGS: Image quality: Excellent. ABDOMEN: Lung bases: Lung bases are clear. Heart size is normal. Solid organs: Liver is normal in size. Gallbladder has been removed . Pancreas is normal in contours. Spleen is normal in size. No adrenal nodules. Kidneys are mildly atrophic, without hydronephrosis or nephrolithiasis. Peritoneum and bowel: Unenhanced bowel loops demonstrate normal wall thickness and caliber. No free fluid or air. Nodes and vessels: No retroperitoneal or mesenteric adenopathy by size criteria. Aorta and inferior vena cava are normal in caliber. Miscellaneous: No ventral hernias. PELVIS: Genitourinary: Bladder wall thickness is normal. Miscellaneous: No inguinal hernias or adenopathy. Bones: No suspicious bony lesions. No vertebral body compression fractures. IMPRESSION: 1. No acute intra-abdominal or pelvic process. Dictated by: Precious Corrales M.D. on 06/28/2021 at 15:43 Approved by: Precious Corrales M.D. on 06/28/2021 at 15:45
[2021-06-28] MEDS: SODIUM CHLORIDE 0.9% 1,000 ML 150 ML IV (15:26)
== END 2021-06-28 16:21 | disposition home or self-care (01) ==
PROVIDERS: Emergency Medicine; Emergency Provider Physician Assistant; PCP Family Medicine
DX: B34.9 Viral infection, unspecified (principal); R10.9 Unspecified abdominal pain; R05 Cough; Z20.822 Contact with and (suspected) exposure to COVID-19
CPT/HCPCS: 74176; 80053; 81003; 83690; 85025; 87635; 96360; 99283; 99284; C9803

== ENCOUNTER 2021-07-30 10:14 | Emergency (ER) | payer OTHER, SELFPAY ==
[2021-07-30] VITALS (11 sets, daily range): BP systolic 119–139; BP diastolic 68–89; PULSE 62–79; RESP 10–25; TEMP 36.2; O2SAT 95–97; BMI 43.6
--- NOTE | 2021-07-30 10:24 | DI.RAD.S_ITS ---
PROCEDURE: XR CHEST 2V INDICATIONS: shortness of breath TECHNIQUE: 2 views of the chest were acquired. COMPARISON: [facility], , CHEST 1 VIEW, 09/15/2017, 13:05. FINDINGS: Surgical changes and devices: None. Lungs and pleura: Reduced lung volumes. No consolidation, pleural effusions or pneumothorax. Mediastinum: Mediastinal contours are normal. Heart size is normal. Bones and chest wall: No suspicious bony abnormalities. Soft tissues appear unremarkable. IMPRESSION: No acute cardiopulmonary abnormality. Dictated by: Edwin Elena M.D. on 07/30/2021 at 11:03 Approved by: Edwin Elena M.D. on 07/30/2021 at 11:04
--- NOTE | 2021-07-30 10:28 | ED_ITS ---
HPI - SOB/Dyspnea General Chief Complaint: Shortness of Breath/Dyspnea Stated Complaint: breathing issues, fell on friday Time Seen by Provider: 07/30/21 10:23 Source: patient Mode of arrival: Ambulatory Limitations: no limitations History of Present Illness HPI Narrative: 46-year-old female nonsmoker without significant chronic medical history presents with a chief complaint of ongoing hacking cough. Yesterday she had what sounds like a relatively unprovoked syncopal episode. She started feeling short of breath and coughing and texted her children who were in or out to her house, she was found on the ground and disoriented. She denies any obvious injury as a consequence. She other than feeling a bit wheezy and short of breath is currently at her baseline. She has had no fever or chills. She denies chest pain or palpitations. She denies nausea, vomiting or diarrhea. She had an upper respiratory illness in June which was thought to be COVID although she tested negative but she had classic symptoms and known exposures. She denies any history of blood clot or cancer. She denies any recent long distance travel or injury. She denies any lower extremity pain or swelling Related Data Home Medications Medication Instructions Recorded Confirmed metoprolol tartrate 25 mg tablet 25 mg PO BID #0 09/15/17 04/30/21 Previous Rx's Medication Instructions Recorded dicyclomine 20 mg tablet 20 mg PO TID PRN #10 tab 04/30/21 benzonatate 100 mg capsule 100 mg PO TID PRN #14 cap 07/30/21 (Michael Arroyo) Allergies Allergy/AdvReac Type Severity Reaction Status Date / Time adhesive Allergy Unknown HIVES FROM Verified 07/30/21 10:20 TAPE codeine Allergy Unknown VOMITING, Verified 07/30/21 10:20 HIVES iodine Allergy Unknown ITCHING, Verified 07/30/21 10:20 HIVES shellfish derived Allergy Unknown VOMITING Verified 07/30/21 10:20 Review of Systems Review of Systems Narrative: GENERAL: Denies chills, fatigue, malaise, fever, sweats. HEENT: Denies sinus pain, ear pain, sore throat, difficulty swallowing, dizziness. RESPIRATORY: Denies dyspnea, cough, wheezing, hemoptysis, sputum. CARDIOVASCULAR: Denies chest pain, palpitations, orthopnea, edema, GASTROINTESTINAL: Denies nausea, vomiting, abdominal pain, diarrhea, constipation, melena. : Denies dysuria, frequency, incontinence, hematuria, urinary retention. MUSCULOSKELETAL: denies weakness, joint pain, or bony pain SKIN: Denies rash, skin lesions, or other NEUROLOGIC: Denies weakness, headache, numbness, change in speech, confusion, seizures, incoordination. PSYCHIATRIC: No concerning psychosocial issues. 12 point review of systems is negative except for those stated above Patient History Medical History (Updated 07/30/21 @ 13:18 by Stephon Gonzales DO) Hypothyroid Social History Smoking Status: Never smoker Smoking Status: Never smoker alcohol intake frequency: holidays/special occasions only Substance Use Type: marijuana Exam Narrative Exam Narrative: GENERAL: [38 year old patient appears stated age. Well-developed patient, in mild distress. HEAD: Atraumatic. Normocephalic. EYES: Pupils equal round and reactive. Extraocular motions intact. No scleral icterus. No injection or drainage. ENT: Nose without bleeding, purulent drainage. Throat without erythema, tonsillar hypertrophy or exudate. Airway patent. NECK: Trachea midline. Non tender CARDIOVASCULAR: Regular rate and rhythm without murmurs, gallops, or rubs. RESPIRATORY: Clear to auscultation. Breath sounds equal bilaterally. No wheezes, rales, or rhonchi. GASTROINTESTINAL: Abdomen soft, non-tender, nondistended. EXTREMITIES: No edema or joint tenderness. BACK: Nontender without deformity or crepitance. No flank tenderness. NEURO: AOx3. SKIN: No rash or erythema of visible areas Initial Vital Signs Initial Vital Signs: Vital Signs Temperature 97.2 F L 07/30/21 10:20 Pulse Rate 79 07/30/21 10:20 Respiratory Rate 20 07/30/21 10:20 Blood Pressure 134/89 07/30/21 10:20 Pulse Oximetry 97 07/30/21 10:20 Course Orders Ordered: ED Orders 07/30/21 10:24 XR chest 2V Stat EKG-12 Lead Stat Measure peak expiratory flow ONCE RT Consult Eval and Treat Now 07/30/21 10:35 COVID19 -Nasal swab/Pre-Proc Stat Complete Blood Count AUTO DIFF Stat Comprehensive Metabolic Panel Stat D Dimer Stat Lactate (Lactic Acid) Stat 07/30/21 12:31 CT head/brain wo con Stat Vital Signs Vital signs: Vital Signs - 8 hr 07/30/21 10:20 07/30/21 11:23 07/30/21 11:30 Temperature 97.2 F L Pulse Rate 79 68 69 Respiratory Rate 20 17 19 Blood Pressure 134/89 Pulse Oximetry 97 95 97 07/30/21 11:54 Temperature Pulse Rate 62 Respiratory Rate Blood Pressure 119/74 Pulse Oximetry 95 MDM - SOB/Dyspnea Lab Data Result diagrams: 07/30/21 10:35 07/30/21 10:35 Labs: Lab Results 07/30/21 07/30/21 07/30/21 Range/Units 10:35 10:35 10:35 WBC 9.2 (4.5-11.0) X10^3/uL RBC 4.60 (4.0-5.2) X10^6/uL Hgb 13.1 (12.0-16.0) g/dL Hct 39.0 (36-46) % MCV 84.9 (80-100) fL MCH 28.5 (26-34) PG MCHC 33.6 (30-36) % RDW 14.1 (11.6-14.8) % Plt Count 261 (150-400) X10^3/uL Neut % (Auto) 68.0 (50-75) % Lymph % (Auto) 25.8 (25-40) % Overton % (Auto) 4.9 (3-14) % Eos % (Auto) 1.1 L (2-4) % Baso % (Auto) 0.2 (0-2) % Neut # (Auto) 6200 (6343-6196) /uL Lymph # (Auto) 2400 (6248-9244) /uL Overton # (Auto) 500 (0-900) /uL Eos # (Auto) 100 (0-450) /uL Baso # (Auto) 0 (0-100) /uL D-Dimer (<230) ng/mL Sodium 140 (137-145) mmol/L Potassium 4.5 (3.4-5.1) mmol/L Chloride 106 (98-107) mmol/L Carbon Dioxide 25 (22-32) mmol/L BUN 20 H (7-17) mg/dL Creatinine 1.06 H (0.52-1.04) mg/dL Estimated GFR 55.3 L (>60) mL/min BUN/Creatinine Ratio 18.9 (6-22) Glucose 104 H (70-100) mg/dL Lactate 0.9 (0.7-2.1) mmol/L Calcium 9.8 (8.4-10.2) mg/dL Total Bilirubin 0.3 (0.2-1.3) mg/dL AST 24 (14-36) IU/L ALT 29 (<35) IU/L Alkaline Phosphatase 105 (38-126) U/L Total Protein 7.5 (6.3-8.2) g/dL Albumin 4.3 (3.5-5.0) g/dL Globulin 3.2 (1.7-4.1) g/dL Albumin/Globulin Ratio 1.3 (1.0-2.8) SARS-CoV-2 (PCR) (Negative) 07/30/21 07/30/21 Range/Units 10:35 10:35 WBC (4.5-11.0) X10^3/uL RBC (4.0-5.2) X10^6/uL Hgb (12.0-16.0) g/dL Hct (36-46) % MCV (80-100) fL MCH (26-34) PG MCHC (30-36) % RDW (11.6-14.8) % Plt Count (150-400) X10^3/uL Neut % (Auto) (50-75) % Lymph % (Auto) (25-40) % Overton % (Auto) (3-14) % Eos % (Auto) (2-4) % Baso % (Auto) (0-2) % Neut # (Auto) (0627-6180) /uL Lymph # (Auto) (7011-9361) /uL Overton # (Auto) (0-900) /uL Eos # (Auto) (0-450) /uL Baso # (Auto) (0-100) /uL D-Dimer < 200 (<230) ng/mL Sodium (137-145) mmol/L Potassium (3.4-5.1) mmol/L Chloride (98-107) mmol/L Carbon Dioxide (22-32) mmol/L BUN (7-17) mg/dL Creatinine (0.52-1.04) mg/dL Estimated GFR (>60) mL/min BUN/Creatinine Ratio (6-22) Glucose (70-100) mg/dL Lactate (0.7-2.1) mmol/L Calcium (8.4-10.2) mg/dL Total Bilirubin (0.2-1.3) mg/dL AST (14-36) IU/L ALT (<35) IU/L Alkaline Phosphatase (38-126) U/L Total Protein (6.3-8.2) g/dL Albumin (3.5-5.0) g/dL Globulin (1.7-4.1) g/dL Albumin/Globulin Ratio (1.0-2.8) SARS-CoV-2 (PCR) Negative (Negative) Imaging Data CT scan - head: Radiologist's Impression: Launch?Image [address] [address] [address] Scan Report Signed Patient: Jhoana Beard MR#: [id number] : 1975 Acct:[id number] Age/Sex: 46 / F Date of Service: 07/30/21 Loc: ED Accession Number: [id number] ?? Procedure: CT head/brain wo con Ordering Provider: Stephon Gonzales D.O. PROCEDURE:? CT HEAD/BRAIN WO CON ? INDICATIONS:? syncope vs. seizure ? TECHNIQUE:? Noncontrast 4.5 mm thick angled axial sections acquired from the foramen magnum to the vertex, with coronal and sagittal reformats.? For radiation dose reduction, the following was used:? automated exposure control, adjustment of mA and/or kV according to patient size.? ? COMPARISON:? [facility], CT, CT HEAD/BRAIN WO CON, 11/03/2020, 21:21. ? FINDINGS:? Image quality:? Excellent.? ? CSF spaces:? Basal cisterns are patent.? No extra-axial fluid collections.? Ventricles are normal in size and shape.? ? Brain:? No midline shift.? No intracranial masses or hemorrhage.? Hinojosa-white matter interface is normal.? ? Skull and face:? Calvarium and visualized facial bones are intact, without suspicious lesions.? ? Sinuses:? Visualized sinuses demonstrate mucous retention cysts versus polyps in the maxillary sinuses bilaterally. ? IMPRESSION:? ? 1. No acute intracranial process. ? ? Dictated by: Precious Corrales M.D. on 07/30/2021 at 12:40 ? ? Approved by: Precious Corrales M.D. on 07/30/2021 at 12:41 ? ECG Data Interpretation: EKG is normal sinus rhythm rate [ 76] and free of any signs of ischemia or ectopy. No ST segmental elevation or depression. No T wave inversions MDM Narrative Medical decision making narrative: Patient has had ongoing and chronic cough for many weeks. Multiple diagnoses considered including COVID versus bacterial pneumonia versus pulmonary embolism versus other. She has no increased work of breathing, no abnormal vitals or need for supplemental oxygen. She states that her symptoms seem to be worse in the evening and when she starts coughing she cannot stop. Pulmonary embolism considered but thought unlikely given negative D-dimer, therefore CTA not ordered. There is no evidence and patient's history, physical, labs or imaging to suggest that she is in need of a specific or immediate intervention. Return precautions given and questions answered to her apparent satisfaction. Regarding her syncopal episode yesterday she was feeling odd with very nondescript symptoms and then had a brief loss of consciousness, which was unwitnessed, followed by a short period of confusion. This is thought to be unlikely related to an arrhythmia given the prodromal symptoms and other workup is very reassuring. Also pulmonary embolism considered for this complaint but thought unlikely given the reasons stated above. I did order a head CT for evaluation as there are elements that made me wonder if this may have been a seizure given her prodromal symptoms and what sounds like may have been a postictal period. Her head CT showed no bleeding or mass. She is resting comfortably. Return precautions given and questions answered to her apparent satisfaction Discharge Plan Departure Patient Disposition: Home Clinical Impression: Syncope and collapse, Cough Instructions: DI for Syncope in Adults (Fainting), DI for Cough -- Adult Activity Restrictions/Additional Instructions: *You have been diagnosed with [chronic cough and syncope. Your history, physical exam, labs and imaging are all very reassuring. *What to do: *Please continue to take your regular medications as directed. [ x] New medication prescriptions sent to your pharmacy: [ ] [ ] New medication written as a paper prescription [ ] No new medications given *Please follow up with your primary care provider in 2-3 days, call for an appointment. Let them know you were seen in the Emergency Department and that we ask that you be seen in follow up. We will electronically transmit a record of today's note if your PCP is in our system *If you do not have a primary care provider please contact the [facility] Resource line at [phone]. They will ask some questions about your medical history and help get you set up with a doctor in the community. *Return to Emergency Department if you should have any new, worsening or concerning symptoms, such as [fever greater than 101 F, shaking chills, worsening pain, persistent vomiting or other bothersome symptoms] Prescriptions: New benzonatate [Tessalon Perles] 100 mg capsule 100 mg PO TID PRN (Reason: cough) Qty: 14 RF: 0 No Action dicyclomine 20 mg tablet 20 mg PO TID PRN (Reason: cramping abdominal pain) Qty: 10 RF: 0 metoprolol tartrate 25 MG tablet 25 mg PO BID Qty: 0 RF: 0 Referrals: Linda Ferrer DO [Primary Care Provider] -
[2021-07-30 11:03] LABS: Add Manual Diff / Slide Review NO; Basophils Absolute Auto 0 /uL (0-100); Basophils Percent Auto 0.2 % (0-2); Eosinophils Absolute Auto 100 /uL (0-450); Eosinophils Percent Auto 1.1 % (2-4); Hemoglobin 13.1 g/dL (12.0-16.0); Lactate (Lactic Acid) 0.9 mmol/L (0.7-2.1); Lymphocytes Absolute Auto 2400 /uL (1100-4500); Lymphocytes Percent Auto 25.8 % (25-40); Mean Corpuscular HGB Conc 33.6 % (30-36); Mean Corpuscular Hemoglobin 28.5 PG (26-34); Mean Corpuscular Volume 84.9 fL (80-100); Monocytes Absolute Auto 500 /uL (0-900); Monocytes Percent Auto 4.9 % (3-14); Neutrophils Absolute Auto 6200 /uL (1500-7000); Platelet Count 261 X10^3/uL (150-400); Red Cell Distribution Width 14.1 % (11.6-14.8); White Blood Cell Count 9.2 X10^3/uL (4.5-11.0)
[2021-07-30 11:04] LABS: Alanine Aminotransferase 29 IU/L (<35); Albumin 4.3 g/dL (3.5-5.0); Albumin Globulin Ratio 1.3 (1.0-2.8); Alkaline Phosphatase 105 U/L (38-126); Aspartate Aminotransferase 24 IU/L (14-36); BUN Creatinine Ratio 18.9 (6-22); Bilirubin Total 0.3 mg/dL (0.2-1.3); Blood Urea Nitrogen 20 mg/dL (7-17); Calcium 9.8 mg/dL (8.4-10.2); Carbon Dioxide 25 mmol/L (22-32); Chloride 106 mmol/L (98-107); Estimated Glomerular Filt Rate 55.3 mL/min (>60); Globulin 3.2 g/dL (1.7-4.1); Glucose 104 mg/dL (70-100); HEMOLYSIS < 15 (0-50); Potassium 4.5 mmol/L (3.4-5.1); Sodium 140 mmol/L (137-145); Total Protein 7.5 g/dL (6.3-8.2)
[2021-07-30 11:17] LABS: D Dimer < 200 ng/mL (<230)
[2021-07-30 11:38] LABS: COVID19 -Nasal RAPID Negative (Negative)
--- NOTE | 2021-07-30 12:19 | PC.NURSE ---
Patient reports she had presumed covid last month (all tests were negative but doctors say they think she had it). Still is having bronchospactic cough in the evening with coughing at every breath. Has history of bronchitis yearly but this is way worse. Unable to take steroids due to crohn's and that it causes her to have GI bleeding. Using nasal steroids and steroid inhalers. Also is using albuterol inhaler with spacer and tessalon perrls. Also reports she woke up on the ground yesterday, unsure of what happened.
--- NOTE | 2021-07-30 12:31 | DI.CT.S_ITS ---
PROCEDURE: CT HEAD/BRAIN WO CON INDICATIONS: syncope vs. seizure TECHNIQUE: Noncontrast 4.5 mm thick angled axial sections acquired from the foramen magnum to the vertex, with coronal and sagittal reformats. For radiation dose reduction, the following was used: automated exposure control, adjustment of mA and/or kV according to patient size. COMPARISON: [facility], CT, CT HEAD/BRAIN WO CON, 11/03/2020, 21:21. FINDINGS: Image quality: Excellent. CSF spaces: Basal cisterns are patent. No extra-axial fluid collections. Ventricles are normal in size and shape. Brain: No midline shift. No intracranial masses or hemorrhage. Hinojosa-white matter interface is normal. Skull and face: Calvarium and visualized facial bones are intact, without suspicious lesions. Sinuses: Visualized sinuses demonstrate mucous retention cysts versus polyps in the maxillary sinuses bilaterally. IMPRESSION: 1. No acute intracranial process. Dictated by: Precious Corrales M.D. on 07/30/2021 at 12:40 Approved by: Precious Corrales M.D. on 07/30/2021 at 12:41
== END 2021-07-30 13:45 | disposition home or self-care (01) ==
PROVIDERS: Emergency Provider Emergency Medicine; PCP Family Medicine
DX: R55 Syncope and collapse (principal); R05.9 Cough, unspecified; R06.02 Shortness of breath; Z20.822 Contact with and (suspected) exposure to COVID-19
CPT/HCPCS: 36415; 70450; 71046; 80053; 83605; 85025; 85379; 87635; 93005; 99283; 99284; C9803

== ENCOUNTER 2022-01-13 19:29 | Emergency (ER) | payer OTHER, SELFPAY ==
[2022-01-13 19:31] VITALS: BP 194/108; PULSE 103; RESP 20; TEMP 36.9; O2SAT 99; BMI 44.2
--- NOTE | 2022-01-13 19:56 | DI.CT.S_ITS ---
PROCEDURE: CT ORBIT LT WO CON INDICATIONS: blunt trauma, corneal abrasion, afferent pupillary defect TECHNIQUE: Noncontrast 2.5 mm axial images acquired through the orbits, with coronal and sagittal reformats. For radiation dose reduction, the following was used: automated exposure control, adjustment of mA and/or kV according to patient size. COMPARISON: [facility], CT, CT HEAD/BRAIN WO CON, 07/30/2021, 12:33. FINDINGS: Image quality: Excellent. Orbits: Globes are symmetrical. No metallic foreign bodies. The optic nerves are normal in size. No retrobulbar masses or fat abnormalities. The extra-ocular muscles are normal and symmetrical in appearance. Lacrimal glands are normal in size. Optic chiasm is normal. Intracranial: Visualized portions of the cerebral hemispheres, brainstem, and spinal cord are normal. Bones and sinuses: Visualized calvarium and facial bones appear intact. Persistent small right maxillary sinus mucous retention cyst. Other visualized paranasal sinuses and mastoids are clear. IMPRESSION: CT orbits without acute abnormalities. No evidence for acute fractures of the imaged calvarium and facial bones. Visualized orbits and globes appear unremarkable in noncontrast CT appearance. Dictated by: Cruz Graf M.D. on 01/13/2022 at 20:26 Approved by: Cruz Graf M.D. on 01/13/2022 at 20:31
--- NOTE | 2022-01-13 19:56 | ED.EYEPROB ---
HPI - Eye Problem General Chief complaint: Eye Problems Stated complaint: HIT LEFT EYE BALL Time Seen by Provider: 01/13/22 19:38 Source: patient Mode of arrival: Ambulatory History of Present Illness HPI Narrative: 46-year-old woman with history of hypertension and recent left shoulder repair was in the garage and in an attempt to not hit her shoulder she overcorrected and ended up with the corner of a box with a firm piece of foam directly injuring her left eye with what she describes as quite a bit of force. She comes in in severe pain with difficulty opening her left eye due to pain but no obvious trauma, abrasions, bleeding, obvious globe rupture. She does note that the vision in the left is very blurry but she attributes much of that to the fact that she simply can not open her eyelids secondary to pain. She has not had any recent fever, cough, nausea, vomiting, diarrhea, chest pain, palpitations, headaches, neurologic complaints. Related Data Home Medications Medication Instructions Recorded Confirmed metoprolol tartrate 25 mg tablet 25 mg PO BID #0 09/15/17 04/30/21 Previous Rx's Medication Instructions Recorded dicyclomine 20 mg tablet 20 mg PO TID PRN #10 tab 04/30/21 benzonatate 100 mg capsule 100 mg PO TID PRN #14 cap 07/30/21 (Michael Arroyo) Allergies Allergy/AdvReac Type Severity Reaction Status Date / Time adhesive Allergy Unknown HIVES FROM Verified 07/30/21 10:20 TAPE codeine Allergy Unknown VOMITING, Verified 07/30/21 10:20 HIVES iodine Allergy Unknown ITCHING, Verified 07/30/21 10:20 HIVES shellfish derived Allergy Unknown VOMITING Verified 07/30/21 10:20 Review of Systems Review of Systems Narrative: Remainder of complete review of systems is otherwise unremarkable except for that included in the HPI. Patient History Medical History (Updated 01/13/22 @ 21:26 by Maegan Reyez MD) Hypothyroid Surgical History (Updated 01/13/22 @ 21:06 by Maegan Reyez MD) H/O shoulder surgery Social History Smoking Status: Never smoker Smoking Status: Never smoker alcohol intake frequency: holidays/special occasions only Substance Use Type: marijuana Exam Initial Vital Signs Initial Vital Signs: Vital Signs Temperature 98.5 F 01/13/22 19:31 Pulse Rate 103 H 01/13/22 19:31 Respiratory Rate 20 01/13/22 19:31 Blood Pressure 194/108 H 01/13/22 19:31 Pulse Oximetry 99 01/13/22 19:31 General: Alert appropriate, significant distress due to left eye pain, covering her I HEENT: No trauma to the head or scalp. No neck tenderness Eye exam: Left eye is sensitive to light and pressure. She has 2/200 vision in the left eye, and baseline normal vision in the right eye. There is no significant scleral injection, no subconjunctival hemorrhage, no trauma to the upper or lower eyelid. On initial gross exam there does appear to be corneal abrasion. With slit lamp exam and fluorescein staining there is a moderate amount of corneal abrasion consistent with a history with no obvious corneal laceration. It does not appear that there is significant injury to this sclera. There is no flare appreciated in the anterior chamber. She is exquisitely tender to light. There is a question of a mild aspirin to pupillary defect in the affected eye. She is able to move the eye easily in all directions but feels that she has to push harder when looking directly up. She is having no double vision. Respiratory: Able to speak in full sentences, no obvious respiratory distress Skin: No obvious rashes, warm and dry Neurologic: Grossly intact no obvious asymmetries or abnormalities Psych: appropriate insight and affect, cooperative Course Orders Ordered: ED Orders 01/13/22 19:56 CT orbit LT wo con Stat Discontinued Medications Hydrocodone Bitart/Acetaminophen (Hydrocodone/Acet 5/325 Tablet) 2 tab PO NOW ONE Stop: 01/13/22 20:03 Last Admin: 01/13/22 20:18 Dose: 2 tab Documented by: ANDREW Fluorescein Sodium (Fluorescein 1 Mg Strip) 1 mg EYE-LEFT NOW ONE Stop: 01/13/22 19:39 Last Admin: 01/13/22 20:15 Dose: 1 mg Documented by: ANDREW Proparacaine HCl (Proparacaine 0.5% Ophth Pearl) 1 drops EYE-LEFT NOW ONE Stop: 01/13/22 19:39 Last Admin: 01/13/22 20:15 Dose: 1 drop Documented by: ANDREW Vital Signs Vital signs: Vital Signs - 8 hr 01/13/22 19:31 Temperature 98.5 F Pulse Rate 103 H Respiratory Rate 20 Blood Pressure 194/108 H Pulse Oximetry 99 [facility] - Eye Problem Imaging Data CT orbit: Radiologist's Impression: FINDINGS:? Image quality:? Excellent.? ? Orbits:? Globes are symmetrical.? No metallic foreign bodies.? The optic nerves are normal in size.? No retrobulbar masses or fat abnormalities.? The extra-ocular muscles are normal and symmetrical in appearance.? Lacrimal glands are normal in size.? Optic chiasm is normal.? ? Intracranial:? Visualized portions of the cerebral hemispheres, brainstem, and spinal cord are normal.? ? Bones and sinuses:? Visualized calvarium and facial bones appear intact.? Persistent small right maxillary sinus mucous retention cyst.? Other visualized paranasal sinuses and mastoids are clear.? ? IMPRESSION:? CT orbits without acute abnormalities.? No evidence for acute fractures of the imaged calvarium and facial bones.? Visualized orbits and globes appear unremarkable in noncontrast CT appearance. ? ? Dictated by: Cruz Graf M.D. on 01/13/2022 at 20:26? ?? [facility] Narrative Medical decision making narrative: 46-year-old woman with blunt trauma to the corneal surface of the left eye from running into firm Styrofoam on the edge of a crate. No other trauma. No evidence of a globe rupture based on CT scan. She does have a superficial corneal abrasion over the majority of the cornea. She is having some visual loss on that side (20/200), blurry, light sensitive At this time with no evidence of acute globe rupture, extraocular eye muscle injury or nerve entrapment at this time I think she is safe for home discharge. I have asked them to call [facility] tomorrow morning to be seen early tomorrow. She is given erythromycin ointment (only eye antibiotic available at this time of night) to use at least 4 times a day and more frequently if it is soothing. Questions are answered and they are safe for discharge home with anticipation of Ophthalmology consult in the morning Discharge Plan Departure Patient Disposition: Home Clinical Impression: Decreased visual acuity Corneal abrasion Qualifiers: Encounter type: initial encounter Laterality: left Qualified Code(s): S05.02XA - Injury of conjunctiva and corneal abrasion without foreign body, left eye, initial encounter Left eye trauma Qualifiers: Encounter type: initial encounter Qualified Code(s): S05.92XA - Unspecified injury of left eye and orbit, initial encounter Instructions: Corneal Abrasion Activity Restrictions/Additional Instructions: Thank you for coming in tonight You would definitely scratched the surface of your eye ball and this is why it hurts so much and feels like there is a scratch on the inner portion of your eyelid. Please use the erythromycin ointment at least 4 times a day and more frequently if it is soothing. You can also use 1-2 Vicodin every 6 hours to help with the severe pain. Please make sure you use stool softener every day that you are using any narcotic. The CT scan that we did tonight does not show that you have a globe rupture. The difficulty in looking straight up and the continued blurry vision may simply be from the blunt trauma to the eye however, I am still concerned about your eye. You do need further exam. Please call [facility] at [phone] in the morning. Please explain that you had an injury to your eye, you were seen in the emergency department, the ER doctor did a CT scan but was still concerned and wanted you to be seen this morning. If there are any concerns or your unable to get an appointment, please return to the ER Prescriptions: No Action dicyclomine 20 mg tablet 20 mg PO TID PRN (Reason: cramping abdominal pain) Qty: 10 0RF metoprolol tartrate 25 MG tablet 25 mg PO BID Qty: 0 0RF benzonatate [Tessalon Perles] 100 mg capsule 100 mg PO TID PRN (Reason: cough) Qty: 14 0RF Referrals: Jacinda Valles MD [Physician] - Germán Cruz MD [Physician] - Linda Ferrer DO [Primary Care Provider] -
[2022-01-13] MEDS: FLUORESCEIN 1 MG STRIP EYE-LEFT (20:15)
[2022-01-13] MEDS: PROPARACAINE 0.5% OPHTH SOL 1 DROPS EYE-LEFT (20:15)
[2022-01-13] MEDS: HYDROCODONE/ACET 5/325 TABLET 2 TAB PO (20:18)
[2022-01-13] MEDS: ERYTHROMYCIN OPHTH 1 GM OINT 1 APPLIC EYE-LEFT (21:12)
== END 2022-01-13 21:35 | disposition home or self-care (01) ==
PROVIDERS: Emergency Provider Emergency Medicine; PCP Family Medicine
DX: S05.02XA Injury of conjunctiva and corneal abrasion without foreign body, left eye, initial encounter (principal); W22.8XXA Striking against or struck by other objects, initial encounter
CPT/HCPCS: 70480; 99284

== ENCOUNTER → 2022-04-02 11:45 | Outpatient (CLI) | payer OTHER, SELFPAY ==
[2022-04-02 13:14] LABS: COVID19 -Nasal RAPID POSITIVE (Negative)
== END ==
PROVIDERS: PCP Family Medicine; Visit Provider Physician Assistant
DX: U07.1 COVID-19 (principal)
CPT/HCPCS: 87070; 87635

== ENCOUNTER 2022-09-06 10:13 | Emergency (ER) | payer OTHER, SELFPAY ==
--- NOTE | 2022-09-06 10:24 | DI.RAD.S_ITS ---
PROCEDURE: XR FOOT RT MIN 3V INDICATIONS: slip and fall TECHNIQUE: 3 views of the foot were acquired. COMPARISON: [facility], , FOOT 3V LEFT, 02/21/2016, 18:24. FINDINGS: Bones: No fractures or dislocations. No suspicious bony lesions. Soft tissues: No tibiotalar joint effusion. Achilles tendon appears normal. IMPRESSION: No visualized acute fracture or dislocation. However, if clinical concern and/or pain persist, short interval imaging followup in 7-10 days is recommended, as occult injury cannot be definitively excluded. Dictated by: Precious Corrales M.D. on 09/06/2022 at 11:10 Approved by: Precious Corrales M.D. on 09/06/2022 at 11:11
[2022-09-06 10:25] VITALS: BP 160/73; PULSE 77; RESP 16; TEMP 36.4; O2SAT 98; BMI 42.5
--- NOTE | 2022-09-06 10:30 | DI.RAD.S_ITS ---
PROCEDURE: XR ANKLE RT MIN 3V INDICATIONS: Fall/injury TECHNIQUE: 3 views of the ankle were acquired. COMPARISON: [facility], CR, XR ANKLE LT MIN 3V, 07/16/2018, 15:01. [facility], CR, XR FOOT RT MIN 3V, 09/06/2022, 10:23. FINDINGS: Bones: No fractures or dislocations. Ankle mortise is normally aligned. No suspicious bony lesions. Soft tissues: No tibiotalar joint effusion. Achilles tendon appears normal. IMPRESSION: No visualized acute fracture or dislocation. However, if clinical concern and/or pain persist, short interval imaging followup in 7-10 days is recommended, as occult injury cannot be definitively excluded. Dictated by: Precious Corrales M.D. on 09/06/2022 at 11:11 Approved by: Precious Corrales M.D. on 09/06/2022 at 11:11
--- NOTE | 2022-09-06 10:30 | ED.LOWEXIN ---
HPI - Extremity Injury (Lower) General Chief Complaint: Extremity Injury, Lower Stated Complaint: think she broke RT foot hit ouside of it on curb Time Seen by Provider: 09/06/22 10:19 Source: patient Mode of arrival: Family Vehicle History of Present Illness HPI Narrative: Patient here for pain/injury to the right ankle/foot. Patient slipped on ice this morning. 7:00 a.m.. Has taken ibuprofen. Denies does on a test. No previous injury to this foot or ankle. Denies any other injuries. Has been walking on her heel this morning since the injury. No numbness tingling or weakness. She has been elevating her foot and ankle. Related Data Home Medications Medication Instructions Recorded Confirmed metoprolol tartrate 25 mg tablet 25 mg PO BID ##0 09/15/17 04/02/22 Previous Rx's Medication Instructions Recorded dicyclomine 20 mg tablet 20 mg PO TID PRN cramping 04/30/21 abdominal pain #10 tabs benzonatate 100 mg capsule 100 mg PO TID PRN cough #14 caps 07/30/21 (Michael Arroyo) Allergies Allergy/AdvReac Type Severity Reaction Status Date / Time adhesive Allergy Unknown HIVES FROM Verified 09/06/22 10:30 TAPE codeine Allergy Unknown VOMITING, Verified 09/06/22 10:30 HIVES iodine Allergy Unknown ITCHING, Verified 09/06/22 10:30 HIVES shellfish derived Allergy Unknown VOMITING Verified 09/06/22 10:30 Review of Systems Review of Systems Narrative: GENERAL: negative chills, fatigue, malaise, fever, sweats. HEENT: negative sinus pain, ear pain, sore throat RESPIRATORY: negative dyspnea, cough CARDIOVASCULAR: negative chest pain, palpitations GASTROINTESTINAL: negative nausea, vomiting, abdominal pain : negative dysuria, frequency, hematuria MUSCULOSKELETAL: Positive muscle or bony pain SKIN: negative rash, skin lesions NEUROLOGIC: negative weakness, numbness ROS Unobtainable: All systems reviewed & are unremarkable except as noted in HPI and below Patient History Medical History Hypothyroid Surgical History H/O shoulder surgery Social History Smoking Status: Never smoker Smoking Status: Never smoker alcohol intake frequency: holidays/special occasions only Substance Use Type: marijuana Exam Narrative Exam Narrative: GENERAL: in no distress, not toxic not dyspneic, shoe and sock removed on the right foot. HEAD: Normocephalic. EYES: Pupils equal round No scleral icterus. EXTREMITIES: No gross deformities. Examination right foot and ankle. Skin intact. No bruising seen. There is tenderness to the right lateral proximal foot. Mild tenderness to the right lateral malleolus, no gross deformity. Foot is warm soft and pink with strong pedal pulse. Light touch active with and toes. Nontender proximal tibial fibula. Able to flex and extend at the foot however does have pain with this. NEURO: AOx4. SKIN: Warm and dry PSYCH: Not anxious, is cooperative Initial Vital Signs Initial Vital Signs: Vital Signs Temperature 97.5 F L 09/06/22 10:25 Pulse Rate 77 09/06/22 10:25 Respiratory Rate 16 09/06/22 10:25 Blood Pressure 160/73 H 09/06/22 10:25 Pulse Oximetry 98 09/06/22 10:25 Oxygen Delivery Method 09/06/22 10:25 Course Course Course Narrative: No new issues during course of stay Orders Ordered: ED Orders 09/06/22 10:24 XR foot RT min 3V Stat 09/06/22 10:30 XR ankle RT min 3V Stat Reevaluation(s) Reevaluation #1: Reviewed x-rays with patient. Patient is up and walking on her heel. She does agree with treatment plan. Work note provided. Referral for Orthopedics provided. She agrees with treatment plan and desires discharge home. Pain is controlled at time of discharge Time: 11:38 Vital Signs Vital signs: Vital Signs - 8 hr 09/06/22 10:25 Temperature 97.5 F L Pulse Rate 77 Respiratory Rate 16 Blood Pressure 160/73 H Pulse Oximetry 98 Oxygen Delivery Method Room Air MDM - Extremity Injury (Lower) Differential Diagnosis Differential diagnosis: Likely ankle sprain and strain, ankle fracture and other (Foot sprain/fracture) Imaging Data Extremity x-ray #1: Radiologist's Impression: [address] [address] XRay Report Signed Patient: Jhoana Beard MR#: [id number] : 1975 Acct:[id number] Age/Sex: 47 / F Date of Service: 09/06/22 Loc: ED Accession Number: [id number] ?? Procedure: XR ankle RT min 3V Ordering Provider: Helder De Luna MD PROCEDURE:? XR ANKLE RT MIN 3V ? INDICATIONS:? Fall/injury ? TECHNIQUE:? 3 views of the ankle were acquired.? ? COMPARISON:? [facility], , XR ANKLE LT MIN 3V, 07/16/2018, 15:01.? [facility], , XR FOOT RT MIN 3V, 09/06/2022, 10:23. ? FINDINGS:? ? Bones:? No fractures or dislocations.? Ankle mortise is normally aligned.? No suspicious bony lesions.? ? Soft tissues:? No tibiotalar joint effusion.? Achilles tendon appears normal.? ? ? IMPRESSION:? No visualized acute fracture or dislocation. However, if clinical concern and/or pain persist, short interval imaging followup in 7-10 days is recommended, as occult injury cannot be definitively excluded. ? Dictated by: Precious Corrales M.D. on 09/06/2022 at 11:11 ? ? Approved by: Precious Corrales M.D. on 09/06/2022 at 11:11 ? Extremity x-ray #2: Radiologist's Impression: [place] [address] XRay Report Signed Patient: Jhoana Beard MR#: [id number] : 1975 Acct:[id number] Age/Sex: 47 / F Date of Service: 09/06/22 Loc: ED Accession Number: [id number] ?? Procedure: XR foot RT min 3V Ordering Provider: Helder De Luna MD PROCEDURE:? XR FOOT RT MIN 3V ? INDICATIONS:? slip and fall ? TECHNIQUE:? 3 views of the foot were acquired.? ? COMPARISON:? [facility], FOOT 3V LEFT, 02/21/2016, 18:24. ? FINDINGS:? ? Bones:? No fractures or dislocations.? No suspicious bony lesions.? ? Soft tissues:? No tibiotalar joint effusion.? Achilles tendon appears normal.? ? ? IMPRESSION:? No visualized acute fracture or dislocation. However, if clinical concern and/or pain persist, short interval imaging followup in 7-10 days is recommended, as occult injury cannot be definitively excluded. ? ? Dictated by: Precious Corrales M.D. on 09/06/2022 at 11:10 ? ? Approved by: Precious Corrales M.D. on 09/06/2022 at 11:11 ? MDM Narrative Medical decision making narrative: Patient here for pain/injuries to the right ankle and foot without any neuro deficits or complaints. Patient has been ambulatory but walking on her heel. No previous injury or surgery on this foot or ankle. Differential diagnosis includes but not limited to ankle and foot fracture/sprain/strain. I did reviewed x-rays and they are reassuring. Appropriate for discharge home. Return precautions reviewed with her. Referral for Orthopedics given as well. Crutches and splint provided for patient for comfort as well as home ice pack and to continue Tylenol or ibuprofen for pain. She desires discharge home Discharge Plan Departure Patient Disposition: Home Clinical Impression: Foot sprain Instructions: DI for Foot Sprain Activity Restrictions/Additional Instructions: See family doctor or call provided orthopedic office on Friday for re-evaluation of your foot in a week. May use cast shoe/crutches when walking. Be sure to use cool pack provided 20 minutes at a time as needed for pain and swelling. Please elevate your foot and ankle when at rest. This will help reduce the swelling. May continue ibuprofen or Tylenol for pain. Return if worse for any questions or concerns Prescriptions: No Action dicyclomine 20 mg tablet 20 mg PO TID PRN (Reason: cramping abdominal pain) Qty: 10 0RF metoprolol tartrate 25 MG tablet 25 mg PO BID Qty: 0 benzonatate [Tessalon Perles] 100 mg capsule 100 mg PO TID PRN (Reason: cough) Qty: 14 0RF Referrals: Provider,Alen HAJI [Primary Care Provider] - Angelica Souza MD [Physician] - Stand Alone Forms: Work Release Note Visit Report Forms: Patient Portal/API
== END 2022-09-06 12:09 | disposition home or self-care (01) ==
PROVIDERS: Emergency Provider Emergency Medicine
DX: S93.401A Sprain of unspecified ligament of right ankle, initial encounter (principal); W00.0XXA Fall on same level due to ice and snow, initial encounter
CPT/HCPCS: 73610; 73630; 99282; 99283

== ENCOUNTER 2023-06-16 19:25 | Emergency (ER) | payer OTHER, SELFPAY ==
[2023-06-16 19:42] VITALS: BP 196/98; PULSE 103; RESP 18; TEMP 36.4; O2SAT 100; BMI 42.5
--- NOTE | 2023-06-16 20:30 | ED.WOUNDLAC ---
HPI - Wound/Laceration General Chief Complaint: Wound/Laceration Stated Complaint: Finger lac Time Seen by Provider: 06/16/23 19:37 Source: patient Mode of arrival: Ambulatory Related Data Home Medications Medication Instructions Recorded Confirmed metoprolol tartrate 25 mg tablet 25 mg PO BID ##0 09/15/17 04/02/22 Previous Rx's Medication Instructions Recorded dicyclomine 20 mg tablet 20 mg PO TID PRN cramping 04/30/21 abdominal pain #10 tabs benzonatate 100 mg capsule 100 mg PO TID PRN cough #14 caps 07/30/21 (Tessalon Perles) Allergies Allergy/AdvReac Type Severity Reaction Status Date / Time adhesive Allergy Unknown HIVES FROM Verified 09/06/22 10:30 TAPE codeine Allergy Unknown VOMITING, Verified 09/06/22 10:30 HIVES iodine Allergy Unknown ITCHING, Verified 09/06/22 10:30 HIVES shellfish derived Allergy Unknown VOMITING Verified 09/06/22 10:30 Patient History Medical History Hypothyroid Surgical History H/O shoulder surgery Social History Smoking Status: Never smoker Smoking Status: Never smoker alcohol intake frequency: holidays/special occasions only Substance Use Type: marijuana Exam Initial Vital Signs Initial Vital Signs: Vital Signs Temperature 97.5 F L 06/16/23 19:42 Pulse Rate 103 H 06/16/23 19:42 Respiratory Rate 18 06/16/23 19:42 Blood Pressure 196/98 H 06/16/23 19:42 Pulse Oximetry 100 06/16/23 19:42 Oxygen Delivery Method Room Air 06/16/23 19:42 Course Vital Signs Vital signs: Vital Signs - 8 hr 06/16/23 19:42 Temperature 97.5 F L Pulse Rate 103 H Respiratory Rate 18 Blood Pressure 196/98 H Pulse Oximetry 100 Oxygen Delivery Method Room Air Discharge Plan Departure Prescriptions: No Action dicyclomine 20 mg tablet 20 mg PO TID PRN (Reason: cramping abdominal pain) Qty: 10 0RF metoprolol tartrate 25 MG tablet 25 mg PO BID Qty: 0 benzonatate [Tessalon Perles] 100 mg capsule 100 mg PO TID PRN (Reason: cough) Qty: 14 0RF Referrals: ProviderAlen [Primary Care Provider] -
== END 2023-06-16 21:01 | disposition left against medical advice (07) ==
PROVIDERS: Emergency Provider Emergency Medicine
CPT/HCPCS: 99281

== ENCOUNTER 2023-09-07 15:12 | Emergency (ER) | payer OTHER, SELFPAY ==
[2023-09-07 15:33] VITALS: BP 188/109; PULSE 78; RESP 18; TEMP 36.2; O2SAT 98; BMI 41.3
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
[2023-09-07 16:36] VITALS: BP 184/98; PULSE 76; O2SAT 98
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
== END 2023-09-07 16:43 | disposition home or self-care (01) ==
PROVIDERS: Emergency Provider Physician Assistant
DX: S50.11XA Contusion of right forearm, initial encounter (principal); W23.1XXA Caught, crushed, jammed, or pinched between stationary objects, initial encounter
CPT/HCPCS: 73090; 99283

== ENCOUNTER 2024-02-19 13:40 | Observation (INO) | payer OTHER, SELFPAY ==
[2024-02-19] VITALS (43 sets, daily range): BP systolic 98–186; BP diastolic 55–138; PULSE 73–149; RESP 10–52; TEMP 36.6; O2SAT 90–100
--- NOTE | 2024-02-19 13:51 | ED.SOB ---
HPI - SOB/Dyspnea General Chief Complaint: Shortness of Breath/Dyspnea Stated Complaint: Vocal cord disorder/spasms Time Seen by Provider: 02/19/24 13:50 History of Present Illness HPI Narrative: Patient 48-year-old female history of vocal cord dysfunction secondary to epiglottitis viral infection she spent [address] [facility] ICU in October she was then readmitted to [facility] ICU December 01 through December 04 for epiglottitis and strep pharyngitis she has since had a couple episode of vocal cord spasm. She is gotten steroids which have seemed to help. She was at a walk-in clinic today and got sent here. She was given epinephrine. And dexamethasone prior to arrival. But still having pretty significant spasm and stridor. She is unable to speak she is able to write all things down and in no but. She is currently unable to swallow as well and eating younger oxygen saturations remain stable she is tachycardic. She has not had fever or chills. Unclear exactly what brought this attack on. Related Data Home Medications Medication Instructions Recorded Confirmed albuterol sulfate 90 mcg/actuation 2 puff inhalation Q4-6H 12/15/23 12/15/23 aerosol inhaler amlodipine 2.5 mg tablet 2.5 mg PO DAILY 12/15/23 12/15/23 fluticasone 250 mcg-salmeterol 50 1 inh inhalation DAILY 12/15/23 12/15/23 mcg/dose blistr powdr for inhalation (Wixela Inhub) ipratropium bromide 21 mcg (0.03 2 spray intranasal BID 12/15/23 12/15/23 %) nasal spray ondansetron 4 mg disintegrating 4 mg PO Q8H 12/15/23 12/15/23 tablet Previous Rx's Medication Instructions Recorded cetirizine 10 mg tablet 20 mg (2 x 10 mg) PO BID #120 tabs 12/15/23 Allergies Allergy/AdvReac Type Severity Reaction Status Date / Time codeine Allergy Unknown VOMITING, Verified 12/15/23 14:59 HIVES shellfish derived Allergy Unknown VOMITING Verified 12/15/23 14:59 adhesive AdvReac Unknown HIVES FROM Verified 12/15/23 14:59 TAPE iodine AdvReac Unknown ITCHING, Verified 12/15/23 14:59 HIVES Patient History Medical History Hypothyroid Surgical History H/O shoulder surgery Social History Smoking Status: Never smoker Smoking Status: Never smoker alcohol intake frequency: holidays/special occasions only Substance Use Type: marijuana Exam Initial Vital Signs Initial Vital Signs: Vital Signs Temperature 97.8 F 02/19/24 13:40 Pulse Rate 130 H 02/19/24 13:40 Respiratory Rate 28 H 02/19/24 13:40 Blood Pressure 186/138 H 02/19/24 13:40 Pulse Oximetry 100 02/19/24 13:40 Oxygen Delivery Method Non -Rebreather 02/19/24 13:40 Oxygen Flow Rate 15 02/19/24 13:40 GENERAL: Anxious stridorous 48-year-old female HEENT: Head atraumatic,EOMI, pupils reactive, face symmetric, moist mucous membranes CARDIOVASCULAR: Regular rate and rhythm without murmurs, rubs or gallops. RESPIRATORY: Breath sounds equal bilaterally, no wheezes rales or rhonchi. Inspiratory stridor ABDOMEN: Soft, nontender. Normoactive bowel sounds all 4 quadrants. No guarding or rebound. EXTREMITIES: Normal range of motion, no clubbing or edema. Neurovascularly intact NEUROLOGICAL: Alert and oriented x4. SKIN: Warm, dry, no laceration, no petechiae, no rashes or lesions. Course Orders Ordered: ED Orders 02/19/24 14:15 Covid-19 + FLU A/B + RSV - PCR Stat 02/19/24 14:25 CBC Auto Diff [Complete Blood Count AUTO DIFF] Stat CMP [Comprehensive Metabolic Panel] Stat 02/19/24 14:27 Consult to Speech Therapy Evaluate & Treat dexmedeTOMIDine in 0.9 % NaCL (Precedex) 400 mcg in 100 mls @ 5.647 mls/hr IV TITRATE HORTENCIA; Protocol Last Titration: 02/19/24 18:11 Dose: 0.2 mcg/kg/hr, 5.647 mls/hr Documented By: Titration: 02/19/24 17:32 Dose: 0.4 mcg/kg/hr, 11.295 mls/hr Documented By: Titration: 02/19/24 17:02 Dose: 0.4 mcg/kg/hr, 11.295 mls/hr Documented By: Titration: 02/19/24 16:33 Dose: 0.4 mcg/kg/hr, 11.295 mls/hr Documented By: Titration: 02/19/24 16:05 Dose: 0.4 mcg/kg/hr, 11.295 mls/hr Documented By: Titration: 02/19/24 15:26 Dose: 0.4 mcg/kg/hr, 11.295 mls/hr Documented By: Admin: 02/19/24 14:59 Dose: 0.2 mcg/kg/hr, 5.647 mls/hr Documented By: MPO Discontinued Medications Dexamethasone (Dexamethasone 10 Mg/Ml Vial) 10 mg IV NOW ONE Stop: 02/19/24 13:59 Last Admin: 02/19/24 14:09 Dose: 10 mg Documented By: MPO Sodium Chloride (Normal Saline 0.9%) 1,000 mls @ 1,000 mls/hr IV BOLUS ONE Stop: 02/19/24 15:14 Last Infusion: 02/19/24 15:33 Dose: Infused Documented By: Admin: 02/19/24 14:21 Dose: 1,000 mls/hr Documented By: MPO Ceftriaxone Sodium 1,000 mg/ (Sodium Chloride) 100 mls @ 200 mls/hr IV NOW ONE Stop: 02/19/24 14:38 Last Infusion: 02/19/24 16:00 Dose: Infused Documented By: Admin: 02/19/24 15:20 Dose: 200 mls/hr Documented By: MPO Lorazepam (Lorazepam 2 Mg/Ml Inj) 0.5 mg IV NOW ONE Stop: 02/19/24 14:05 Last Admin: 02/19/24 14:09 Dose: 0.5 mg Documented By: MPO Lorazepam (Lorazepam 2 Mg/Ml Inj) 0.5 mg IV NOW ONE Stop: 02/19/24 14:13 Last Admin: 02/19/24 14:12 Dose: 0.5 mg Documented By: MPO Pantoprazole Sodium (Pantoprazole 40 Mg Vial) 40 mg IV NOW ONE Stop: 02/19/24 14:17 Last Admin: 02/19/24 15:20 Dose: 40 mg Documented By: MPO Vital Signs Vital signs: Vital Signs - 8 hr 02/19/24 13:40 02/19/24 13:44 02/19/24 13:45 Temperature 97.8 F Pulse Rate 130 H 128 H 128 H Respiratory Rate 28 H Blood Pressure 186/138 H Pulse Oximetry 100 100 100 Oxygen Delivery Method Non -Rebreather Oxygen Flow Rate 15 02/19/24 13:45 02/19/24 14:00 02/19/24 14:30 Temperature Pulse Rate 140 H 149 H Respiratory Rate 48 H 52 H Blood Pressure 186/138 H Pulse Oximetry 97 96 Oxygen Delivery Method Oxygen Flow Rate 02/19/24 14:46 02/19/24 14:46 02/19/24 15:00 Temperature Pulse Rate 145 H 134 H Respiratory Rate 44 H 33 H Blood Pressure 170/98 H Pulse Oximetry 96 98 Oxygen Delivery Method Oxygen Flow Rate 02/19/24 15:00 02/19/24 15:30 02/19/24 16:00 Temperature Pulse Rate 128 H 103 H Respiratory Rate 38 H 22 Blood Pressure 156/96 H Pulse Oximetry 97 96 Oxygen Delivery Method Oxygen Flow Rate 02/19/24 16:21 02/19/24 16:21 02/19/24 16:30 Temperature Pulse Rate 102 H 98 H Respiratory Rate 32 H 29 H Blood Pressure 126/73 Pulse Oximetry 94 94 Oxygen Delivery Method Oxygen Flow Rate MDM - SOB/Dyspnea Lab Data 02/19/24 14:25 02/19/24 14:25 Labs: Lab Results 02/19/24 Range/Units 14:25 WBC 9.7 (4.5-11.0) X10^3/uL RBC 4.58 (4.0-5.2) X10^6/uL Hgb 12.9 (12.0-16.0) g/dL Hct 37.9 (36-46) % MCV 82.7 (80-100) fL MCH 28.2 (26-34) PG MCHC 34.1 (30-36) % RDW 13.7 (11.6-14.8) % Plt Count 310 (150-400) X10^3/uL Neut % (Auto) 78.1 H (50-75) % Lymph % (Auto) 18.6 L (25-40) % [place] % (Auto) 2.4 L (3-14) % Eos % (Auto) 0.5 L (2-4) % Baso % (Auto) 0.4 (0-2) % Neut # (Auto) 7600 H (6160-4039) /uL Lymph # (Auto) 1800 (0830-0688) /uL [place] # (Auto) 200 (0-900) /uL Eos # (Auto) 0 (0-450) /uL Baso # (Auto) 0 (0-100) /uL Sodium 141 (137-145) mmol/L Potassium 3.7 (3.4-5.1) mmol/L Chloride 109 H (98-107) mmol/L Carbon Dioxide 23 (22-32) mmol/L BUN 14 (7-17) mg/dL Creatinine 1.00 (0.52-1.04) mg/dL Estimated GFR > 60 (>60) mL/min BUN/Creatinine Ratio 14.0 (6-22) Glucose 135 H (70-100) mg/dL Calcium 9.5 (8.4-10.2) mg/dL Total Bilirubin 0.4 (0.2-1.3) mg/dL AST 23 (14-36) IU/L ALT 23 (<35) IU/L Alkaline Phosphatase 102 (38-126) U/L Total Protein 7.9 (6.3-8.2) g/dL Albumin 4.6 (3.5-5.0) g/dL Globulin 3.3 (1.7-4.1) g/dL Albumin/Globulin Ratio 1.4 (1.0-2.8) MDM Narrative Medical decision making narrative: Patient 48-year-old female with history of vocal cord dysfunction presenting today with a vocal cord spasm. Initially tried cool mist however she lasted less than 10 seconds and stated that it got incidentally got worse. She can not have any sort of inhaled medications it makes it worse for her. She was given Ativan 0.5 mg x 2 along with IV dexamethasone. 1424 Dr. Lindquist on-call ENT updated on patient's symptoms test results is at clinic but can come into the ED and scope her. Recommends sniff breathing and pursed lip. Recommends a speech therapy consult as well. 1430 Dr. Villatoro a pressing machine tender at the [facility] as updated patient's symptoms test results states that patient had a vocal cord dysfunction after a viral laryngitis she had a scope 1 month ago she had some obvious dysphonia granuloma but otherwise normal airway. Recommended a Precedex drip. And admission to an ICU and conservative treatment Patient becoming very agitated still able to write angrily on a note book and started pulling out her IV. She is willing to try the Precedex Patient has had significant improvement on Precedex. Able to speak now. Discussed case again with Dr. Lindquist if she is improved this much no need for scope, she had a scope at [facility] [address] Quintero updated on patient's symptoms test results agrees with ICU observation on Precedex drip Critical Care Time Critical Care Time Critical Care Time: Yes Total Critical Care Time: 35 Attestation: The high probability of a clinically significant, sudden or life threatening deterioration of the respiratory system(s) required my full and direct attention, intervention and personal management. The aggregate critical care time was 35 minutes. This time is in addition to time spent performing reported procedures but includes the following: [x] Data Review and interpretation [x] Patient assessment and monitoring of vital signs [x] Documentation [x] Medication orders and management Discharge Plan Departure Patient Disposition: Admitted as Observation Clinical Impression: Vocal cord dysfunction Admit Date/Time: 02/19/24 16:40 Admit Provider: Saulo Quintero
--- NOTE | 2024-02-19 14:01 | PC.NURSE ---
Pt arrived to ED via [facility] due to difficulty breathing and stridor. Pt has mumtaz of vocal cord disorder and epiglottitis dx 10/2023. Upon arrival pt gasping and reports that she is having a hard time getting air and that she is tired of breathing. Pt RR 29, O2 sat 98 on RA. Pt Tachy with HR 133. Pt communicates via clipboard and pen. Pt a&ox4 and answers all questions appropriately. Seen at [facility] ED previous x2 and was dx with panic attack according to pt. Pt suctions self. Pt overall demeanor anxious due to inability to take deep breath.
[2024-02-19] MEDS: LORazepam 2 MG/ML INJ 0.5 MG IV ×2 (14:09→14:12)
[2024-02-19] MEDS: DEXAMETHASONE 10 MG/ML VIAL IV (14:09)
[2024-02-19] MEDS: SODIUM CHLORIDE 0.9% 1,000 ML 1000 ML IV (14:21)
[2024-02-19 14:35] LABS: Add Manual Diff / Slide Review NO; Basophils Absolute Auto 0 /uL (0-100); Basophils Percent Auto 0.4 % (0-2); Eosinophils Absolute Auto 0 /uL (0-450); Eosinophils Percent Auto 0.5 % (2-4); Hematocrit 37.9 % (36-46); Hemoglobin 12.9 g/dL (12.0-16.0); Lymphocytes Absolute Auto 1800 /uL (1100-4500); Lymphocytes Percent Auto 18.6 % (25-40); Mean Corpuscular HGB Conc 34.1 % (30-36); Mean Corpuscular Hemoglobin 28.2 PG (26-34); Mean Corpuscular Volume 82.7 fL (80-100); Monocytes Absolute Auto 200 /uL (0-900); Monocytes Percent Auto 2.4 % (3-14); Neutrophils Absolute Auto 7600 /uL (1500-7000); Neutrophils Percent Auto 78.1 % (50-75); Platelet Count 310 X10^3/uL (150-400); Red Blood Cell Count 4.58 X10^6/uL (4.0-5.2); Red Cell Distribution Width 13.7 % (11.6-14.8); White Blood Cell Count 9.7 X10^3/uL (4.5-11.0)
[2024-02-19 14:48] LABS: Alanine Aminotransferase 23 IU/L (<35); Albumin 4.6 g/dL (3.5-5.0); Albumin Globulin Ratio 1.4 (1.0-2.8); Alkaline Phosphatase 102 U/L (38-126); Aspartate Aminotransferase 23 IU/L (14-36); Bilirubin Total 0.4 mg/dL (0.2-1.3); Blood Urea Nitrogen 14 mg/dL (7-17); Calcium 9.5 mg/dL (8.4-10.2); Carbon Dioxide 23 mmol/L (22-32); Chloride 109 mmol/L (98-107); Estimated Glomerular Filt Rate > 60 mL/min (>60); Globulin 3.3 g/dL (1.7-4.1); Glucose 135 mg/dL (70-100); HEMOLYSIS 15 (0-50); Potassium 3.7 mmol/L (3.4-5.1); Sodium 141 mmol/L (137-145); Total Protein 7.9 g/dL (6.3-8.2)
[2024-02-19] MEDS: dexmedeTOMIDine in 0.9 % NaCL 400 MCG/100 ML PLAST..BAG 5.647 MCG IV (14:59)
[2024-02-19] MEDS: cefTRIAXone 1,000 MG in SODIUM CHLORIDE 0.9% 100 ML 200 MG IV (15:20)
[2024-02-19] MEDS: PANTOPRAZOLE 40 MG VIAL IV (15:20)
--- NOTE | 2024-02-19 15:33 | PC.NURSE ---
1354 Pt became anxious and reports that she is having increased SOB and like she cannot get a deep breath. Dr Goncalves called to bedside and discussed with pt that ENT recommended pursed lip breathing to help relieve pt's SOB and that he would be willing time come and scop pt after office hours. Pt becoming frustrated with situation. Pt a&ox4. 1412 Pt becoming more agitated and anxious. States that she is unable to get a deep breath, feels like her throat is closing and like she is choking. Verbal order for another 0.5 mg of Lorazepam ordered by Dr Goncalves. Pt began to show improvement and reported that she felt as though her diaphragm was relaxing after 2nd dose of lorazepam administered. Pt a&ox4. 1445 Dr Goncalves spoke with licensed final expense agents at [facility]. Ordered Precedex drip to [facility] titration protocol as per pulmonology recommendation. Pt growing frustrated and agitated. Pt reports wanting to leave and stated that she feels as though we are threatening her when Dr Goncalves explained progression of tx to intubation if airway could not be managed appropriately with medications. Pt began to pull out IV and stated that she wanted to leave because we are not helping her. Pt o2 sat consitently 98-100% on RA. Refused cxr. at bedside. [place] line attendant and Dr Goncalves called to bedside for assistance. Dr Goncalves explained progression of tx to patient again and pt agreed to stay for medication tx, scope by ENT and possible ICU admission. Pt a&ox4.
--- NOTE | 2024-02-19 16:05 | PC.NURSE ---
Pt sitting up in chair. A&Ox4. States that she feels like the obstruction has released and able to speak in short sentences as per pt baseline. States that she is comfortable. Denies any SOB, cp, or pain. o2 98% RR30. remains at bedside.
--- NOTE | 2024-02-19 17:09 | PC.NURSE ---
Pt sitting up in bed. A&Ox4. Can speak in short sentences and states that she is feeling better but very tired.
--- NOTE | 2024-02-19 17:33 | PM.HP.1 ---
History of Present Illness History of Present Illness Date Patient Seen: 02/19/24 Time Patient Seen: 17:15 Chief complaint: Vocal cord disorder/spasms Narrative: The patient is a 48-year-old female with a history of vocal cord dysfunction and intermittent episodes of dysphonia and stridor. This has been ongoing since about October of this year and apparently followed a viral infection at that time. She has had several admissions to [facility] for these symptoms and concern for epiglottis and possibly pharyngitis. She notes since that time, she has 3-5 episodes of dysphonia and stridor a day, all lasting a very short time. She will have the occasional more severe episode which happened today leading to a visit to the emergency department. She also notes that any local treatment with misting or bronchodilators increases her symptoms and makes her more uncomfortable. She is unsure about benzodiazepines and their effect on her overall symptoms. The emergency physician discussed this with pulmonology at [facility], they recommended Precedex drip and she has been placed on that in the emergency department is improved greatly. She still has inspiratory stridor but is able to talk which is a major improvement. She also has some allergic rhinitis which may be contributing to her current symptoms. She denies recent fevers, chills, or a dramatic change in her cough. EMS did give her corticosteroids and epinephrine EN route to the hospital. There is no clear precipitant for today's more major episode. She is pending evaluations and treatment with speech therapy and talks about needing intensive therapy. Her respiratory PCR for is negative for flu, COVID, or RSV. She was discussed with Dr. Lindquist of Otolaryngology, he is aware of her if she has worsening symptoms. [facility] Medical History Hypothyroid Surgical History H/O shoulder surgery Social History Smoking Status: Never smoker Meds Home Medications and Allergies Home Medications Medication Instructions Recorded Confirmed Type albuterol sulfate 90 mcg/actuation 2 puff inhalation Q4-6H 12/15/23 12/15/23 History aerosol inhaler amlodipine 2.5 mg tablet 2.5 mg PO DAILY 12/15/23 12/15/23 History cetirizine 10 mg tablet 20 mg (2 x 10 mg) PO BID #120 tabs 12/15/23 12/15/23 Rx fluticasone 250 mcg-salmeterol 50 1 inh inhalation DAILY 12/15/23 12/15/23 History mcg/dose blistr powdr for inhalation (Wixela Inhub) ipratropium bromide 21 mcg (0.03 2 spray intranasal BID 12/15/23 12/15/23 History %) nasal spray ondansetron 4 mg disintegrating 4 mg PO Q8H 12/15/23 12/15/23 History tablet Allergies Allergy/AdvReac Type Severity Reaction Status Date / Time codeine Allergy Unknown VOMITING, Verified 12/15/23 14:59 HIVES shellfish derived Allergy Unknown VOMITING Verified 12/15/23 14:59 adhesive AdvReac Unknown HIVES FROM Verified 12/15/23 14:59 TAPE iodine AdvReac Unknown ITCHING, Verified 12/15/23 14:59 HIVES Review of Systems Review of Systems Narrative: All else reviewed and otherwise unremarkable except as noted in the history and physical. Exam Vital Signs (past 8 hours): - 02/19/24 13:40 02/19/24 13:44 02/19/24 13:45 Temperature 97.8 F Pulse Rate 130 H 128 H 128 H Respiratory Rate 28 H Blood Pressure 186/138 H Pulse Oximetry 100 100 100 Oxygen Delivery Method Non -Rebreather Oxygen Flow Rate 02/19/24 13:45 02/19/24 14:00 02/19/24 14:30 Temperature Pulse Rate 140 H 149 H Respiratory Rate 48 H 52 H Blood Pressure 186/138 H Pulse Oximetry 97 96 Oxygen Delivery Method Oxygen Flow Rate 02/19/24 14:46 02/19/24 14:46 02/19/24 15:00 Temperature Pulse Rate 145 H 134 H Respiratory Rate 44 H 33 H Blood Pressure 170/98 H Pulse Oximetry 96 98 Oxygen Delivery Method Oxygen Flow Rate 02/19/24 15:00 02/19/24 15:30 02/19/24 16:00 Temperature Pulse Rate 128 H 103 H Respiratory Rate 38 H 22 Blood Pressure 156/96 H Pulse Oximetry 97 96 Oxygen Delivery Method Oxygen Flow Rate 02/19/24 16:21 02/19/24 16:21 02/19/24 16:30 Temperature Pulse Rate 102 H 98 H Respiratory Rate 32 H 29 H Blood Pressure 126/73 Pulse Oximetry 94 94 Oxygen Delivery Method Oxygen Flow Rate 02/19/24 17:00 02/19/24 17:05 02/19/24 17:05 Temperature Pulse Rate 91 H 91 H Respiratory Rate 23 21 Blood Pressure 118/64 Pulse Oximetry 93 93 Oxygen Delivery Method Oxygen Flow Rate 02/19/24 17:16 02/19/24 17:16 Temperature Pulse Rate 85 Respiratory Rate 20 Blood Pressure 134/67 Pulse Oximetry 93 Oxygen Delivery Method Oxygen Flow Rate Oxygen Delivery Method Non -Rebreather Oxygen Flow Rate 15 Narrative Exam Narrative: NAD, alert and oriented, fluent speech, mild anxiety. Audible stridor with inspiration only. Tactile stridor with palpation of her trachea. Normocephalic skull, EOMI, anicteric sclera, symmetric pupils. Oropharynx unremarkable, no droop. Neck supple, midline trachea, no adenopathy. Lungs clear except for her upper airway inspiratory stridor, normal rate and effort. Heart regular, no murmur gallop or rub. Abdomen is soft, non distended and non tender. Extremities are free of edema. Skin is free of rash or lesions. Joints are not swollen or deformed. Judgment appears to be normal. Objective Labs 02/19/24 14:25 02/19/24 14:25 Labs: Laboratory Results - last 24 hr 02/19/24 14:25 WBC 9.7 RBC 4.58 Hgb 12.9 Hct 37.9 MCV 82.7 MCH 28.2 MCHC 34.1 RDW 13.7 Plt Count 310 Neut % (Auto) 78.1 H Lymph % (Auto) 18.6 L [place] % (Auto) 2.4 L Eos % (Auto) 0.5 L Baso % (Auto) 0.4 Neut # (Auto) 7600 H Lymph # (Auto) 1800 [place] # (Auto) 200 Eos # (Auto) 0 Baso # (Auto) 0 Sodium 141 Potassium 3.7 Chloride 109 H Carbon Dioxide 23 BUN 14 Creatinine 1.00 Estimated GFR > 60 BUN/Creatinine Ratio 14.0 Glucose 135 H Calcium 9.5 Total Bilirubin 0.4 AST 23 ALT 23 Alkaline Phosphatase 102 Total Protein 7.9 Albumin 4.6 Globulin 3.3 Albumin/Globulin Ratio 1.4 Assessment & Plan Assessment & Plan narrative: 1. Vocal cord dysfunction was stridor which is inspiratory, present on admission and improving. 2. Asthma, present on admission and relatively stable. 3. Possible recurrent anaphylaxis, present on admission and improving. 4. Hypothyroidism, present on admission and stable. 5. Obesity, present on admission and active. PLAN: -Precedex drip overnight and wean as able in the morning. -avoid any direct missing treatments or bronchodilators. This exacerbates conditions. -benzodiazepines as needed. -probable discharge on February 19. Estimated date of discharge is February 19, patient needs 1 night in the hospital and is admitted to observation status. She is full resuscitation, confirmed time of admission. Proxy decision maker is her . Time Spent With Patient Time with patient: 30 to 49 minutes with 50% spent counseling/coordinating care Quality MIPS - Admit I confirm the patient?s Advance Care Plan is present, Code status is documented, Surrogate decision maker is in patient?s record [If Yes, STOP here]: Yes MIPS - Meds 'Current medications' to include all prescriptions, [id number] products, herbals, cannabis/cannabidiol products, and vitamin/mineral/dietary (nutritional) supplements. I have utilized all available resources to obtain, update, or review the patient?s current medications. [If Yes, STOP here]: Yes
--- NOTE | 2024-02-19 18:08 | PC.NURSE ---
Pt sitting up in bed. States that she does not quite remember that the hospitalist came to speak with her prior to admission to ICU. States that all her hospital stays are blending together and she cannot decipher which stay is which. Pt answers all questions appropriately, but seems confused. Precedex dose decreased to 0.2 mcg/kg/hr
--- NOTE | 2024-02-19 18:41 | PC.NURSE ---
Pt a&ox4. States that she does not feel confused anymore and that it feels like her throat is closing up. Increased precedex to 0.4mcg/kg/hr. VS WNL.
[2024-02-19] MEDS: dexmedeTOMIDine in 0.9 % NaCL 400 MCG/100 ML PLAST..BAG 16.942 MCG IV (22:24)
[2024-02-20] VITALS (47 sets, daily range): BP systolic 91–144; BP diastolic 54–93; PULSE 54–80; RESP 10–35; O2SAT 91–100
[2024-02-20] MEDS: dexmedeTOMIDine in 0.9 % NaCL 400 MCG/100 ML PLAST..BAG 11.295 MCG IV (03:46)
--- NOTE | 2024-02-20 07:25 | PC.NURSE ---
Assumed care of pt at 0700. Pt resting comfortably and arousable to touch and sound. Able to speak in short sentences. Updated MAR RASS & titration dose.
--- NOTE | 2024-02-20 07:56 | PC.NURSE ---
Assumed care of pt at 0700. pt resting comfortably and denies any SOB or difficulty breathing. Arousable to touchand sound. A&Ox4. Answers all questions appropriately and speaks in short sentences. VS WNL.
--- NOTE | 2024-02-20 08:53 | PC.NURSE ---
ARC WELDING MACHINE OPERATOR to bedside for eval. Was unable to finish due to the need for a more in-depth eval of speech and swallowing. ARC WELDING MACHINE OPERATOR stated that she will be back after her outpatient appointments to complete her evaluation. Pt a&ox4. Sitting up in bed and speaking in full sentences at this time. Pt states that she feels much better than yesterday. VS WNL.
--- NOTE | 2024-02-20 09:26 | PC.NURSE ---
Precedex paused as per Dr Lockett verbal order. Pt A&Ox4. Speaking in full sentences and states that she feels great.
--- NOTE | 2024-02-20 10:21 | P.DS_ITS ---
History of Present Illness History of Present Illness Date Patient Seen: 02/20/24 Time Patient Seen: 09:00 Chief complaint: Vocal cord disorder/spasms Narrative: Per admitting provider, The patient is a 48-year-old female with a history of vocal cord dysfunction and intermittent episodes of dysphonia and stridor. This has been ongoing since about October of this year and apparently followed a viral infection at that time. She has had several admissions to [facility] for these symptoms and concern for epiglottis and possibly pharyngitis. She notes since that time, she has 3-5 episodes of dysphonia and stridor a day, all lasting a very short time. She will have the occasional more severe episode which happened today leading to a visit to the emergency department. She also notes that any local treatment with misting or bronchodilators increases her symptoms and makes her more uncomfortable. She is unsure about benzodiazepines and their effect on her overall symptoms. The emergency physician discussed this with pulmonology at [facility], they recommended Precedex drip and she has been placed on that in the emergency department is improved greatly. She still has inspiratory stridor but is able to talk which is a major improvement. She also has some allergic rhinitis which may be contributing to her current symptoms. She denies recent fevers, chills, or a dramatic change in her cough. EMS did give her corticosteroids and epinephrine EN route to the hospital. There is no clear precipitant for today's more major episode. She is pending evaluations and treatment with speech therapy and talks about needing intensive therapy. Her respiratory PCR for is negative for flu, COVID, or RSV. She was discussed with Dr. Lindquist of Otolaryngology, he is aware of her if she has worsening symptoms. Discharge Providers Provider Date of admission: 02/19/24 16:40 Discharge Date: 02/20/24 Primary care physician: Alen HAJI Provider Consults: 02/19/24 14:27 Consult to Speech Therapy Evaluate & Treat Comment: vocal cord dysfunctiio Physician Instructions: Evaluate and treat Discharge provider: Adi Lockett DO Summary Hospital Course Discharge Diagnosis: 1. Vocal cord dysfunction was stridor which is inspiratory, present on admission and improving. 2. Asthma, present on admission and relatively stable. 3. Possible recurrent anaphylaxis, present on admission and improving. 4. Hypothyroidism, present on admission and stable. 5. Obesity, present on admission and active. Hospital Course: This is a 48 year old female with PMH of vocal cord dysfunction who presented with cord spasm. She was stridorous on presentation, ENT was consulted, did not have any specific recommendations. A pulmologist recommended a trial of precedex infusion, conservative management. She had improvement with precedex infusion. In the morning, patient was calm, with no stridor or difficulty breathing. She had been given steroids, so these were continued on discharge. She was given a prescription for lorazepam in the future to take as needed. She already has outpatient ENT scheduled. Time Spent with Patient Time spent: Less than 30 minutes Exam Vital Signs (past 8 hours): - 02/20/24 02:30 02/20/24 02:30 02/20/24 03:00 Pulse Rate 68 Respiratory Rate 18 Blood Pressure 140/87 129/75 Pulse Oximetry 93 02/20/24 03:00 02/20/24 03:15 02/20/24 03:15 Pulse Rate 63 64 Respiratory Rate 17 17 Blood Pressure 134/83 Pulse Oximetry 94 94 02/20/24 03:30 02/20/24 03:30 02/20/24 03:45 Pulse Rate 63 Respiratory Rate 16 Blood Pressure 137/88 129/86 Pulse Oximetry 94 02/20/24 03:45 02/20/24 04:00 02/20/24 04:00 Pulse Rate 63 62 Respiratory Rate 18 13 Blood Pressure 140/91 H Pulse Oximetry 94 94 02/20/24 04:15 02/20/24 04:15 02/20/24 04:30 Pulse Rate 61 62 Respiratory Rate 15 16 Blood Pressure 139/89 Pulse Oximetry 95 97 02/20/24 04:30 02/20/24 04:45 02/20/24 04:45 Pulse Rate 60 Respiratory Rate 16 Blood Pressure 135/82 133/82 Pulse Oximetry 95 02/20/24 05:00 02/20/24 05:00 02/20/24 05:15 Pulse Rate 65 Respiratory Rate 16 Blood Pressure 117/57 L 143/87 H Pulse Oximetry 95 02/20/24 05:15 02/20/24 05:30 02/20/24 05:30 Pulse Rate 59 L 57 L Respiratory Rate 16 10 L Blood Pressure 144/89 H Pulse Oximetry 95 95 02/20/24 05:45 02/20/24 05:45 02/20/24 06:00 Pulse Rate 58 L 67 Respiratory Rate 17 21 Blood Pressure 138/88 Pulse Oximetry 95 95 02/20/24 06:01 02/20/24 06:01 02/20/24 06:16 Pulse Rate 64 62 Respiratory Rate 12 18 Blood Pressure 91/56 L Pulse Oximetry 95 95 02/20/24 06:16 02/20/24 06:30 02/20/24 06:33 Pulse Rate 64 Respiratory Rate 19 Blood Pressure 118/67 111/59 L Pulse Oximetry 95 02/20/24 06:33 02/20/24 06:45 02/20/24 06:45 Pulse Rate 61 57 L Respiratory Rate 17 16 Blood Pressure 143/85 H Pulse Oximetry 97 94 02/20/24 07:00 02/20/24 07:00 02/20/24 07:15 Pulse Rate 55 L Respiratory Rate 15 Blood Pressure 135/84 126/76 Pulse Oximetry 95 02/20/24 07:15 02/20/24 07:30 02/20/24 07:30 Pulse Rate 58 L 54 L Respiratory Rate 18 16 Blood Pressure 132/82 Pulse Oximetry 95 95 02/20/24 07:45 02/20/24 07:45 02/20/24 08:00 Pulse Rate 56 L 59 L Respiratory Rate 16 15 Blood Pressure 133/86 Pulse Oximetry 95 95 02/20/24 08:00 02/20/24 08:15 02/20/24 08:15 Pulse Rate 54 L Respiratory Rate 16 Blood Pressure 137/92 H 135/80 Pulse Oximetry 95 02/20/24 08:30 02/20/24 08:30 02/20/24 08:45 Pulse Rate 57 L 72 Respiratory Rate 17 35 H Blood Pressure 136/86 Pulse Oximetry 95 95 02/20/24 08:45 02/20/24 09:00 02/20/24 09:00 Pulse Rate 63 Respiratory Rate 23 Blood Pressure 128/80 134/83 Pulse Oximetry 94 02/20/24 09:15 02/20/24 09:15 02/20/24 09:30 Pulse Rate 65 65 Respiratory Rate 35 H 17 Blood Pressure 141/93 H Pulse Oximetry 95 94 02/20/24 09:30 Pulse Rate Respiratory Rate Blood Pressure 142/85 H Pulse Oximetry Oxygen Delivery Method Non -Rebreather Oxygen Flow Rate 15 Narrative Exam Narrative: NAD, alert and oriented, fluent speech, mild anxiety. No stridor. Normocephalic skull, EOMI, anicteric sclera, symmetric pupils. Oropharynx unremarkable, no droop. Hoarse voice, weak Neck supple, midline trachea, no adenopathy. Lungs clear, normal rate and effort. Heart regular, no murmur gallop or rub. Abdomen is soft, non distended and non tender. Extremities are free of edema. Skin is free of rash or lesions. Joints are not swollen or deformed. Judgment appears to be normal. Objective Labs 02/19/24 14:25 02/19/24 14:25 Labs: Laboratory Results - last 24 hr 02/19/24 14:25 WBC 9.7 RBC 4.58 Hgb 12.9 Hct 37.9 MCV 82.7 MCH 28.2 MCHC 34.1 RDW 13.7 Plt Count 310 Neut % (Auto) 78.1 H Lymph % (Auto) 18.6 L [place] % (Auto) 2.4 L Eos % (Auto) 0.5 L Baso % (Auto) 0.4 Neut # (Auto) 7600 H Lymph # (Auto) 1800 [place] # (Auto) 200 Eos # (Auto) 0 Baso # (Auto) 0 Sodium 141 Potassium 3.7 Chloride 109 H Carbon Dioxide 23 BUN 14 Creatinine 1.00 Estimated GFR > 60 BUN/Creatinine Ratio 14.0 Glucose 135 H Calcium 9.5 Total Bilirubin 0.4 AST 23 ALT 23 Alkaline Phosphatase 102 Total Protein 7.9 Albumin 4.6 Globulin 3.3 Albumin/Globulin Ratio 1.4 PFSH Medical History Hypothyroid Surgical History H/O shoulder surgery Social History Smoking Status: Never smoker Discharge Plan Discharge Plan Patient Disposition: Home Provider Discharge Comment: You were admitted to the hospital with stridor from vocal cords. If symptoms recur trial benzodiazepine sent to your pharmacy. Discharge orders & Medications Prescriptions: New lorazepam 1 mg tablet 1 mg PO TID PRN (Reason: vocal cord spasm) 30 Days Qty: 30 0RF prednisone 20 mg tablet 20 mg PO DAILY 3 Days Qty: 3 0RF Continued amlodipine 2.5 mg tablet 2.5 mg PO DAILY ipratropium bromide 21 mcg (0.03 %) spray,non-aerosol 2 spray intranasal BID Rx Instructions: administer into each nostril fluticasone propion-salmeterol [Wixela Inhub] 250-50 mcg/dose blister with device 1 inh inhalation DAILY albuterol sulfate 90 mcg/actuation HFA aerosol inhaler 2 puff inhalation Q4-6H ondansetron 4 mg tablet,disintegrating 4 mg PO Q8H cetirizine 10 mg tablet 20 mg PO BID Qty: 120 5RF Rx Instructions: Start taking 1 tablet daily for 7 days then 1 tablet twice a day for 7 days then 2 tablets twice a day indefinitely Follow up/Referrals: ProviderAlen [Primary Care Provider] - Diet/Activity/Treatments Diet: Diet as Tolerated and Regular Activity: As tolerated, no restrictions Visit Report/Discharge Packet Instructions: DI for Prescription Opioid Use, Lorazepam Stand Alone Forms: Patient Portal/API, Stroke Signs & Symptoms Discharge Data Primary Care Provider: Alen Pollard Attending Provider: Saulo Quintero Admit Date/Time: 02/19/24 16:40
[2024-02-20] MEDS: LORazepam 1 MG TABLET PO (10:57)
--- NOTE | 2024-02-20 11:21 | PC.NURSE ---
Pt able to swallow pills and states that she still feels better.
--- NOTE | 2024-02-20 12:37 | ST.IPIE ---
Visit Care Team Role Provider Type Alen RAISSA Provider Primary Care Provider Non-Staff Specialty: Medical Address: Phone: Email: Kiya Goncalves DO Emergency Provider Physician Referring Provider Specialty: Emergency Medicine Address: [address] [place] [address], [id number] Email: [email or web address] Saulo Quintero MD Admit Provider Physician Attending Provider Specialty: Internal Medicine Address: [address] [place] [address], [address] Email: [email or web address] Past Medical History (Last Reviewed 02/19/24 @ 17:35 by Saulo Quintero MD) Hypothyroid (Medical) ST IP Initial Evaluation Report [facility] [employer]ER Voice Resonance Evaluation Start: 02/20/24 10:37 Freq: Status: Active Protocol: Document 02/20/24 12:13 MA (Rec: 02/20/24 12:37 MA [id number]) Voice and Resonance Assessment Session Time Visit Start Time 08:15 Visit Stop Time 09:00 Total Visit Minutes 45 Visit Information Visit Number [address] Ronnie Quintero Reason for Referral Dysphonia Setting Setting Acute Care Patient History Patient History Per H&P: The patient is a 48- year-old female with a history of vocal cord dysfunction and intermittent episodes of dysphonia and stridor. This has been ongoing since about October of this year and apparently followed a viral infection at that time. She has had several admissions to [facility] for these symptoms and concern for epiglottis and possibly pharyngitis. She notes since that time, she has 3-5 episodes of dysphonia and stridor a day, all lasting a very short time. She will have the occasional more severe episode which happened today leading to a visit to the emergency department. She also notes that any local treatment with misting or bronchodilators increases her symptoms and makes her more uncomfortable. She is unsure about benzodiazepines and their effect on her overall symptoms. The emergency physician discussed this with pulmonology at [facility], they recommended Precedex drip and she has been placed on that in the emergency department is improved greatly. She still has inspiratory stridor but is able to talk which is a major improvement. She also has some allergic rhinitis which may be contributing to her current symptoms. She denies recent fevers, chills, or a dramatic change in her cough. EMS did give her corticosteroids and epinephrine EN route to the hospital. There is no clear precipitant for today's more major episode. She is pending evaluations and treatment with speech therapy and talks about needing intensive therapy. Her respiratory PCR for is negative for flu, COVID, or RSV. She was discussed with Dr. Lindquist of Otolaryngology, he is aware of her if she has worsening symptoms. Pt referred for ST evaluation d/t Pt with hx of dysphonia. Hearing Hearing Level Normal Previous Therapy Previous Speech-Language Therapy Yes History of Previous Therapy Pt reports she received speech therapy in the acute setting during her hospitalization the end of November. She reports she has been trying to get a referral for outpatient speech therapy, however has had difficulties working with insurance and getting authorized. Oral Motor Assessment Source: [place] [employer] ([employer]РЕ[employer]). Oral-Motor Eval Completed Yes Oral-Motor Assessment OME revealed oromusculature WFL Subjective Subjective As stated in H&P, Patient has had voice issues consisting of episodes of dysphonia and stridor since October 2023. She states she has been trying to get a referral for outpatient speech therapy, however has had difficulties working with her insurance. She states her primary doctor is also working on this. She states on October 27 she went into anaphylactic shock d /t shell fish where her throat closed and has had trouble ever since. She states she was dx with epiglotitis end of November where it was also found that every structure in her neck was infected, Per patient report. She also reports swallowing difficulties and can only eat soft foods. Evaluation was cut short d/t time constraint and Pt discharging home. Most of the evaluation involved patient talking about her voice difficulties and frustration around not being able to receive outpatient speech therapy services. - Laryngeal Performance Findings Findings Moderate Impairment Observations Based on patient interview and clinical judgement, Patient presents with moderate dysphonia. Her voice her characterized by hoarseness and occasional moments of inhiliatory stridor, however able to communicate in full sentences. She reports she learned some voice strategies during acute stay the end of November at [facility], however did not specify. ST communicated recommendation for Pt to continue to discuss with her primary care doctor in regards to a referral for outpatient speech therapy services to address voice/ swallow issues. Pt verbalized understanding. - Recommendations Treatment Recommended No Treatment Frequency/Duration Pt discharged home this date Placement Recommendation Home,Outpatient Therapy Referrals Referrals ENT Patient/Caregiver Education Patient/Family Education Described results of evaluation,Patient Understanding
== END 2024-02-20 12:52 | disposition home or self-care (01) ==
LOC: ED 14:27 → AC 16:42
PROVIDERS: Admitting Provider Hospitalist; Emergency Provider Emergency Medicine; Referring Provider Emergency Medicine; Visit Provider Hospitalist
DX: J38.3 Other diseases of vocal cords (principal); J45.909 Unspecified asthma, uncomplicated; E03.9 Hypothyroidism, unspecified; E66.9 Obesity, unspecified
CPT/HCPCS: 36415; 80053; 85025; 92523; 96365; 96366; 96368; 96375; 99284; 99291; G0378; C9113; J0696; J1100; J2060

== ENCOUNTER 2024-02-21 14:40 | Emergency (ER) | payer OTHER, SELFPAY ==
[2024-02-21] VITALS (25 sets, daily range): BP systolic 97–121; BP diastolic 53–82; PULSE 74–155; RESP 17–33; TEMP 36.6; O2SAT 98–100; BMI 43.2
[2024-02-21] MEDS: LORazepam 2 MG/ML INJ (14:45)
[2024-02-21] MEDS: dexmedeTOMIDine in 0.9 % NaCL 400 MCG/100 ML PLAST..BAG 16.59 MCG IV (14:45)
[2024-02-21] MEDS: SODIUM CHLORIDE 0.9% 1,000 ML 1000 ML IV (14:58)
[2024-02-21] MEDS: DEXAMETHASONE 10 MG/ML VIAL IV (14:58)
--- NOTE | 2024-02-21 14:58 | ED.SOB ---
HPI - SOB/Dyspnea General Chief Complaint: Shortness of Breath/Dyspnea Stated Complaint: Respiratory Distress Time Seen by Provider: 02/21/24 14:41 Source: EMS Mode of arrival: EMS History of Present Illness HPI Narrative: Patient is a 48-year-old female with known vocal cord dysfunction well known to myself was recently in the ED admitted to the hospital for 24 hours and discharged yesterday. She had a complicated epiglottitis infection in October where she was admitted to the ICU for about 10 days she is intermittent episodes of dysphonia and stridor. She had episode here a couple days ago was given Ativan and Precedex which she did really well on. At that time Josesito was consulted recommended supportive care only. She presents again today with a very similar presentation of significant stridor choking inability to swallow secretions. However she is able to suction herself and her oxygen remains at 98%. Her son is at bedside says that she was very weak and tired while at home he is unclear what started this episode. EMS gave her epi IM. 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 She does not have any sort of rash or hives Related Data Home Medications Medication Instructions Recorded Confirmed albuterol sulfate 90 mcg/actuation 2 puff inhalation Q4-6H 12/15/23 12/15/23 aerosol inhaler amlodipine 2.5 mg tablet 2.5 mg PO DAILY 12/15/23 12/15/23 fluticasone 250 mcg-salmeterol 50 1 inh inhalation DAILY 12/15/23 12/15/23 mcg/dose blistr powdr for inhalation (Wixela Inhub) ipratropium bromide 21 mcg (0.03 2 spray intranasal BID 12/15/23 12/15/23 %) nasal spray ondansetron 4 mg disintegrating 4 mg PO Q8H 12/15/23 12/15/23 tablet Previous Rx's Medication Instructions Recorded cetirizine 10 mg tablet 20 mg (2 x 10 mg) PO BID #120 tabs 12/15/23 lorazepam 1 mg tablet 1 mg PO TID PRN vocal cord spasm 02/20/24 30 days #30 tabs prednisone 20 mg tablet 20 mg PO DAILY 3 days #3 tabs 02/20/24 epinephrine 0.3 mg/0.3 mL 0.3 mg (0.3 mL) IM Q5-15M PRN 02/21/24 injection, auto-injector anaphylaxis #2 ea Allergies Allergy/AdvReac Type Severity Reaction Status Date / Time codeine Allergy Unknown VOMITING, Verified 02/21/24 14:52 HIVES shellfish derived Allergy Unknown VOMITING Verified 02/21/24 14:52 adhesive AdvReac Unknown HIVES FROM Verified 02/21/24 14:52 TAPE iodine AdvReac Unknown ITCHING, Verified 02/21/24 14:52 HIVES Patient History Medical History Hypothyroid Surgical History H/O shoulder surgery Social History Smoking Status: Never smoker Smoking Status: Never smoker alcohol intake frequency: holidays/special occasions only Substance Use Type: marijuana Exam Initial Vital Signs Initial Vital Signs: Vital Signs Pulse Oximetry 98 02/21/24 14:43 GENERAL: Alert 48-year-old female appears moderate to severe respiratory distress, able to suction self HEENT: Head atraumatic,EOMI, pupils reactive, able to suction her own secretions CARDIOVASCULAR: Regular rate and rhythm without murmurs, rubs or gallops. RESPIRATORY: Inspiratory stridor ABDOMEN: Soft, nontender. Normoactive bowel sounds all 4 quadrants. No guarding or rebound. EXTREMITIES: Normal range of motion, no clubbing or edema. Neurovascularly intact NEUROLOGICAL: Alert and oriented x4. SKIN: Warm, dry, no laceration, no petechiae, no rashes or lesions. Course Orders Ordered: Discontinued Medications Dexamethasone (Dexamethasone 10 Mg/Ml Vial) 10 mg IV NOW ONE Stop: 02/21/24 14:43 Last Admin: 02/21/24 14:58 Dose: 10 mg Documented By: Sodium Chloride (Normal Saline 0.9%) 1,000 mls @ 1,000 mls/hr IV BOLUS ONE Stop: 02/21/24 15:41 Last Infusion: 02/21/24 17:40 Dose: Infused Documented By: Admin: 02/21/24 14:58 Dose: 1,000 mls/hr Documented By: dexmedeTOMIDine in 0.9 % NaCL (Precedex) 400 mcg in 100 mls @ 5.53 mls/hr IV TITRATE HORTENCIA; Protocol Last Titration: 02/21/24 17:41 Dose: Infused Documented By: Titration: 02/21/24 16:10 Dose: 0 mcg/kg/hr, 0 mls/hr Documented By: Titration: 02/21/24 15:56 Dose: 0.2 mcg/kg/hr, 5.53 mls/hr Documented By: Titration: 02/21/24 15:44 Dose: 1.1 mcg/kg/hr, 30.415 mls/hr Documented By: Titration: 02/21/24 15:14 Dose: 1.3 mcg/kg/hr, 35.945 mls/hr Documented By: Titration: 02/21/24 15:02 Dose: 1.5 mcg/kg/hr, 41.475 mls/hr Documented By: Titration: 02/21/24 14:53 Dose: 1 mcg/kg/hr, 27.65 mls/hr Documented By: Titration: 02/21/24 14:50 Dose: 0.8 mcg/kg/hr, 22.12 mls/hr Documented By: Admin: 02/21/24 14:45 Dose: 0.6 mcg/kg/hr, 16.59 mls/hr Documented By: Lorazepam (Lorazepam 2 Mg/Ml Inj) 1 mg IM NOW ONE Stop: 02/21/24 14:43 Last Admin: 02/21/24 14:54 Dose: Not Given Documented By: Ondansetron HCl (Ondansetron 4 Mg/2 Ml Inj) 4 mg IV NOW ONE Stop: 02/21/24 15:00 Last Admin: 02/21/24 15:00 Dose: 4 mg Documented By: Vital Signs Vital signs: Vital Signs - 8 hr 02/21/24 14:45 Pulse Rate 155 H Respiratory Rate 26 H Pulse Oximetry 99 Oxygen Delivery Method Nasal Cannula Oxygen Flow Rate 10 MDM - SOB/Dyspnea Lab Data 02/21/24 15:00 02/21/24 15:00 Labs: Lab Results 02/21/24 Range/Units 15:00 WBC 17.5 H (4.5-11.0) X10^3/uL RBC 4.63 (4.0-5.2) X10^6/uL Hgb 12.9 (12.0-16.0) g/dL Hct 38.9 (36-46) % MCV 83.9 (80-100) fL MCH 27.8 (26-34) PG MCHC 33.1 (30-36) % RDW 14.1 (11.6-14.8) % Plt Count 452 H (150-400) X10^3/uL Neut % (Auto) 83.4 H (50-75) % Lymph % (Auto) 14.1 L (25-40) % [place] % (Auto) 2.4 L (3-14) % Eos % (Auto) 0.0 L (2-4) % Baso % (Auto) 0.1 (0-2) % Neut # (Auto) 78296 H (3363-7050) /uL Lymph # (Auto) 2500 (9982-0180) /uL [place] # (Auto) 400 (0-900) /uL Eos # (Auto) 0 (0-450) /uL Baso # (Auto) 0 (0-100) /uL Sodium 141 (137-145) mmol/L Potassium 3.9 (3.4-5.1) mmol/L Chloride 110 H (98-107) mmol/L Carbon Dioxide 19 L (22-32) mmol/L BUN 22 H (7-17) mg/dL Creatinine 1.05 H (0.52-1.04) mg/dL Estimated GFR > 60 (>60) mL/min BUN/Creatinine Ratio 21.0 (6-22) Glucose 193 H (70-100) mg/dL Calcium 8.9 (8.4-10.2) mg/dL Total Bilirubin 0.5 (0.2-1.3) mg/dL AST 24 (14-36) IU/L ALT 22 (<35) IU/L Alkaline Phosphatase 103 (38-126) U/L Total Protein 8.0 (6.3-8.2) g/dL Albumin 4.8 (3.5-5.0) g/dL Globulin 3.2 (1.7-4.1) g/dL Albumin/Globulin Ratio 1.5 (1.0-2.8) MDM Narrative Medical decision making narrative: Patient 48-year-old female with known vocal cord dysfunction recently seen by myself admitted and discharged presents again today with similar presentation. She was given Ativan and Precedex and quickly turned around. He appears to have vocal cord spasm which causes her to choke. She is able to suction her own secretions once the spasm really says she improves. Precedex was weaned off she was able to speak. We discussed transfer versus outpatient. This time though without any acute crisis I think outpatient follow-up is appropriate. We discussed that she needs to continue speech therapy. She was given a prescription for Ativan when she was discharged yesterday. Blood work has been reviewed: She does have leukocytosis of 17.5 however suspect that this is secondary to stress reaction not infection she also received dexamethasone previously, sodium 141 potassium 3.9, chloride 110, carbon dioxide 19, BUN 22, creatinine 1.0 glucose 193 She had no imaging done no need for imaging Patient quickly resolves with Precedex and Ativan. At this time she needs to follow-up with pulmonology at [facility] continue speech therapy it sounds as though referral went through. At this time both she and family feel comfortable going home Discharge Plan Departure Patient Disposition: Home Clinical Impression: Vocal cord dysfunction Activity Restrictions/Additional Instructions: *You have been diagnosed with vocal cord dysfunction *What to do: At this time I really do think he needs some speech therapy I am happy to help you. I am so glad that you are feeling better. *Continue to take medications as directed EpiPen as needed *Follow up with your primary care provider in 2-3 days or call [phone] *Return to ER if you should have increased difficulty breathing or swallowing or any new, worsening or concerning symptoms Prescriptions: New epinephrine 0.3 mg/0.3 mL auto-injector 0.3 mg IM Q5-15M PRN (Reason: anaphylaxis) Qty: 2 0RF Rx Instructions: do not exceed 3 doses per episode No Action lorazepam 1 mg tablet 1 mg PO TID PRN (Reason: vocal cord spasm) 30 Days Qty: 30 0RF prednisone 20 mg tablet 20 mg PO DAILY 3 Days Qty: 3 0RF amlodipine 2.5 mg tablet 2.5 mg PO DAILY ipratropium bromide 21 mcg (0.03 %) spray,non-aerosol 2 spray intranasal BID Rx Instructions: administer into each nostril fluticasone propion-salmeterol [Wixela Inhub] 250-50 mcg/dose blister with device 1 inh inhalation DAILY albuterol sulfate 90 mcg/actuation HFA aerosol inhaler 2 puff inhalation Q4-6H ondansetron 4 mg tablet,disintegrating 4 mg PO Q8H cetirizine 10 mg tablet 20 mg PO BID Qty: 120 5RF Rx Instructions: Start taking 1 tablet daily for 7 days then 1 tablet twice a day for 7 days then 2 tablets twice a day indefinitely Referrals: ProviderAlen [Primary Care Provider] - Stand Alone Forms: Patient Portal/API
[2024-02-21] MEDS: ONDANSETRON 4 MG/2 ML INJ IV (15:00)
[2024-02-21 15:08] LABS: Add Manual Diff / Slide Review NO; Basophils Absolute Auto 0 /uL (0-100); Basophils Percent Auto 0.1 % (0-2); Eosinophils Absolute Auto 0 /uL (0-450); Hematocrit 38.9 % (36-46); Hemoglobin 12.9 g/dL (12.0-16.0); Lymphocytes Absolute Auto 2500 /uL (1100-4500); Lymphocytes Percent Auto 14.1 % (25-40); Mean Corpuscular HGB Conc 33.1 % (30-36); Mean Corpuscular Hemoglobin 27.8 PG (26-34); Mean Corpuscular Volume 83.9 fL (80-100); Monocytes Absolute Auto 400 /uL (0-900); Monocytes Percent Auto 2.4 % (3-14); Neutrophils Absolute Auto 14600 /uL (1500-7000); Neutrophils Percent Auto 83.4 % (50-75); Platelet Count 452 X10^3/uL (150-400); Red Blood Cell Count 4.63 X10^6/uL (4.0-5.2); Red Cell Distribution Width 14.1 % (11.6-14.8); White Blood Cell Count 17.5 X10^3/uL (4.5-11.0)
[2024-02-21 15:18] LABS: Alanine Aminotransferase 22 IU/L (<35); Albumin 4.8 g/dL (3.5-5.0); Albumin Globulin Ratio 1.5 (1.0-2.8); Alkaline Phosphatase 103 U/L (38-126); Aspartate Aminotransferase 24 IU/L (14-36); Bilirubin Total 0.5 mg/dL (0.2-1.3); Blood Urea Nitrogen 22 mg/dL (7-17); Calcium 8.9 mg/dL (8.4-10.2); Carbon Dioxide 19 mmol/L (22-32); Chloride 110 mmol/L (98-107); Estimated Glomerular Filt Rate > 60 mL/min (>60); Globulin 3.2 g/dL (1.7-4.1); Glucose 193 mg/dL (70-100); HEMOLYSIS < 15 (0-50); Potassium 3.9 mmol/L (3.4-5.1); Sodium 141 mmol/L (137-145)
--- NOTE | 2024-02-21 16:10 | PC.NURSE ---
MD stated to decrease precedex to 0.2mcg. Now, is aware that precedex has been paused after pt being free from laryngeal spasms.
== END 2024-02-21 17:44 | disposition home or self-care (01) ==
PROVIDERS: Emergency Provider Emergency Medicine
DX: J38.3 Other diseases of vocal cords (principal); Y99.0 Civilian activity done for income or pay
CPT/HCPCS: 36415; 80053; 85025; 96365; 96375; 99284; 99285; J1100; J2060; J2405

== ENCOUNTER 2024-03-06 14:16 | Emergency (ER) | payer OTHER, SELFPAY ==
[2024-03-06] VITALS (30 sets, daily range): BP systolic 81–158; BP diastolic 49–104; PULSE 76–150; RESP 13–48; O2SAT 92–99; BMI 43.3
[2024-03-06] MEDS: LORazepam 2 MG/ML INJ 1 MG IV (14:23)
[2024-03-06] MEDS: DEXAMETHASONE 10 MG/ML VIAL IV (14:24)
[2024-03-06] MEDS: dexmedeTOMIDine in 0.9 % NaCL 400 MCG/100 ML PLAST..BAG 5.56 MCG IV (14:25)
[2024-03-06] MEDS: SODIUM CHLORIDE 0.9% 1,000 ML 1000 ML IV (15:57)
--- NOTE | 2024-03-06 17:30 | ED.SOB ---
HPI - SOB/Dyspnea General Chief Complaint: Shortness of Breath/Dyspnea Stated Complaint: Vocal Cord Dysfunction Time Seen by Provider: 03/06/24 14:19 Source: patient Mode of arrival: Family Vehicle Limitations: no limitations History of Present Illness HPI Narrative: Patient is a 48-year-old female well known to myself and this facility this is now the 3rd time I am seeing her for vocal cord dysfunction. This is the 3rd attack she has had in the last month. She had a complicated epiglottitis infection in October admitted to an ICU never intubated. When I initially talked to her program manager slp at [facility] who help take care of over it was recommended that we use Precedex to help her when she has these attacks. Precedex has been working for her when she comes in. Today it is unclear what caused or triggered this attack. She walked to the coffee shop with her friend which was about 200 [address], not far and she was just extremely tired. She complains of extreme fatigue. She says she is extreme fatigue and then it is difficult for her to swallow and then spasms and then she chokes. Previously it has been chemicals and aerosols cause these attacks she gave herself 2 epinephrine shots which sometimes helps her. Related Data Home Medications Medication Instructions Recorded Confirmed albuterol sulfate 90 mcg/actuation 2 puff inhalation Q4-6H 12/15/23 12/15/23 aerosol inhaler amlodipine 2.5 mg tablet 2.5 mg PO DAILY 12/15/23 12/15/23 fluticasone 250 mcg-salmeterol 50 1 inh inhalation DAILY 12/15/23 12/15/23 mcg/dose blistr powdr for inhalation (Wixela Inhub) ipratropium bromide 21 mcg (0.03 2 spray intranasal BID 12/15/23 12/15/23 %) nasal spray ondansetron 4 mg disintegrating 4 mg PO Q8H 12/15/23 12/15/23 tablet Previous Rx's Medication Instructions Recorded cetirizine 10 mg tablet 20 mg (2 x 10 mg) PO BID #120 tabs 12/15/23 lorazepam 1 mg tablet 1 mg PO TID PRN vocal cord spasm 02/20/24 30 days #30 tabs epinephrine 0.3 mg/0.3 mL 0.3 mg (0.3 mL) IM Q5-15M PRN 02/21/24 injection, auto-injector anaphylaxis #2 ea Allergies Allergy/AdvReac Type Severity Reaction Status Date / Time codeine Allergy Unknown VOMITING, Verified 02/21/24 14:52 HIVES shellfish derived Allergy Unknown VOMITING Verified 02/21/24 14:52 adhesive AdvReac Unknown HIVES FROM Verified 02/21/24 14:52 TAPE iodine AdvReac Unknown ITCHING, Verified 02/21/24 14:52 HIVES Patient History Medical History Hypothyroid Surgical History H/O shoulder surgery Social History Smoking Status: Never smoker Smoking Status: Never smoker alcohol intake frequency: holidays/special occasions only Substance Use Type: marijuana Exam Initial Vital Signs Initial Vital Signs: Vital Signs Pulse Rate 114 H 03/06/24 14:17 Respiratory Rate 20 03/06/24 14:17 Blood Pressure 145/88 H 03/06/24 14:17 Pulse Oximetry 99 03/06/24 14:17 Oxygen Delivery Method Room Air 03/06/24 14:17 GENERAL: Stridorous alert 48-year-old female appears in moderate to severe distress HEENT: Head atraumatic,EOMI, pupils reactive, face symmetric, [moist] mucous membranes CARDIOVASCULAR: Regular rate and rhythm without murmurs, rubs or gallops. RESPIRATORY: Breath sounds equal bilaterally, no wheezes rales or rhonchi. Stridor not able to manage secretions needs suction EXTREMITIES: Normal range of motion, no clubbing or edema. Neurovascularly intact NEUROLOGICAL: Alert and oriented x4.Normal gait and speech. SKIN: Warm, dry, no laceration, no petechiae, no rashes or lesions. Course Orders Ordered: dexmedeTOMIDine in 0.9 % NaCL (Precedex) 400 mcg in 100 mls @ 5.56 mls/hr IV TITRATE HORTENCIA; Protocol Last Titration: 03/06/24 15:45 Dose: 0 mcg/kg/hr, 0 mls/hr Documented By: Titration: 03/06/24 15:24 Dose: 0.2 mcg/kg/hr, 5.56 mls/hr Documented By: Titration: 03/06/24 15:19 Dose: 0.1 mcg/kg/hr, 2.78 mls/hr Documented By: Titration: 03/06/24 15:05 Dose: 0.3 mcg/kg/hr, 8.34 mls/hr Documented By: YULIA(2) Admin: 03/06/24 14:25 Dose: 0.2 mcg/kg/hr, 5.56 mls/hr Documented By: JUAN ANTONIO Discontinued Medications Dexamethasone (Dexamethasone 10 Mg/Ml Vial) 10 mg IV NOW ONE Stop: 03/06/24 14:20 Last Admin: 03/06/24 14:24 Dose: 10 mg Documented By: JUAN ANTONIO Sodium Chloride (Normal Saline 0.9%) 1,000 mls @ 1,000 mls/hr IV BOLUS ONE Stop: 03/06/24 16:55 Last Admin: 03/06/24 15:57 Dose: 1,000 mls/hr Documented By: JUAN ANTONIO Lorazepam (Lorazepam 2 Mg/Ml Inj) 1 mg IV NOW ONE Stop: 03/06/24 14:20 Last Admin: 03/06/24 14:23 Dose: 1 mg Documented By: JUAN ANTONIO Vital Signs Vital signs: Vital Signs - 8 hr 03/06/24 14:17 03/06/24 14:24 03/06/24 14:28 Pulse Rate 114 H 150 H Respiratory Rate 20 40 H Blood Pressure 145/88 H 106/70 Pulse Oximetry 99 98 Oxygen Delivery Method Room Air 03/06/24 14:28 03/06/24 14:30 03/06/24 14:38 Pulse Rate 130 H 125 H 116 H Respiratory Rate 33 H 48 H 30 H Blood Pressure Pulse Oximetry 98 97 97 Oxygen Delivery Method 03/06/24 14:38 03/06/24 15:00 03/06/24 15:01 Pulse Rate 108 H 106 H Respiratory Rate 33 H 35 H Blood Pressure 158/104 H Pulse Oximetry 96 96 Oxygen Delivery Method 03/06/24 15:01 03/06/24 15:16 03/06/24 15:16 Pulse Rate 96 H Respiratory Rate 35 H Blood Pressure 120/75 94/49 L Pulse Oximetry 96 Oxygen Delivery Method 03/06/24 15:18 03/06/24 15:18 03/06/24 15:23 Pulse Rate 95 H 100 H Respiratory Rate 26 H 23 Blood Pressure 81/51 L Pulse Oximetry 96 96 Oxygen Delivery Method 03/06/24 15:23 03/06/24 15:26 03/06/24 15:27 Pulse Rate 100 H 99 H Respiratory Rate 24 29 H Blood Pressure 113/65 Pulse Oximetry 96 96 Oxygen Delivery Method 03/06/24 15:27 03/06/24 15:30 03/06/24 15:30 Pulse Rate 122 H Respiratory Rate 41 H Blood Pressure 107/74 116/77 Pulse Oximetry 95 Oxygen Delivery Method 03/06/24 15:36 03/06/24 15:36 03/06/24 15:41 Pulse Rate 99 H 104 H Respiratory Rate 33 H 33 H Blood Pressure 96/66 Pulse Oximetry 96 93 Oxygen Delivery Method 03/06/24 15:41 03/06/24 15:45 03/06/24 15:45 Pulse Rate 125 H Respiratory Rate 32 H Blood Pressure 125/80 117/83 Pulse Oximetry 98 Oxygen Delivery Method 03/06/24 15:50 03/06/24 15:50 03/06/24 15:55 Pulse Rate 127 H 109 H Respiratory Rate 37 H 40 H Blood Pressure 118/64 Pulse Oximetry 97 97 Oxygen Delivery Method 03/06/24 15:55 03/06/24 16:00 03/06/24 16:00 Pulse Rate 103 H Respiratory Rate 34 H Blood Pressure 129/77 98/62 Pulse Oximetry 96 Oxygen Delivery Method 03/06/24 16:05 03/06/24 16:05 03/06/24 16:10 Pulse Rate 97 H 101 H Respiratory Rate 35 H 34 H Blood Pressure 99/60 Pulse Oximetry 97 97 Oxygen Delivery Method 03/06/24 16:10 03/06/24 16:15 03/06/24 16:15 Pulse Rate 94 H Respiratory Rate 35 H Blood Pressure 103/74 102/72 Pulse Oximetry 97 Oxygen Delivery Method 03/06/24 16:25 03/06/24 16:25 03/06/24 16:31 Pulse Rate 100 H 92 H Respiratory Rate 18 15 Blood Pressure 100/75 Pulse Oximetry 98 97 Oxygen Delivery Method 03/06/24 16:31 03/06/24 16:40 03/06/24 16:40 Pulse Rate 90 Respiratory Rate 15 Blood Pressure 108/67 120/63 Pulse Oximetry 96 Oxygen Delivery Method 03/06/24 16:50 03/06/24 16:50 03/06/24 17:00 Pulse Rate 87 78 Respiratory Rate 13 24 Blood Pressure 110/68 Pulse Oximetry 94 93 Oxygen Delivery Method 03/06/24 17:00 03/06/24 17:10 03/06/24 17:10 Pulse Rate 76 Respiratory Rate 24 Blood Pressure 109/58 L 112/60 Pulse Oximetry 93 Oxygen Delivery Method 03/06/24 17:20 03/06/24 17:20 03/06/24 17:30 Pulse Rate 90 80 Respiratory Rate 19 17 Blood Pressure 117/61 Pulse Oximetry 92 94 Oxygen Delivery Method 03/06/24 17:30 Pulse Rate Respiratory Rate Blood Pressure 116/67 Pulse Oximetry Oxygen Delivery Method MDM - SOB/Dyspnea MDM Narrative Medical decision making narrative: Patient 48-year-old female with known vocal cord dysfunction. She arrives in moderate to severe distress. She is able to suction herself in right on a piece of paper. He is never hypoxic. She is given Ativan dexamethasone immediately and Precedex drip is started. Precedex does call her in seems to help. She still continues to be coughing and stridorous but says she is feeling much better and gives a thumbs up sign. Precedex drip was increased she became hypotensive it was immediately decreased. She continues to be sleepy but blood pressure improved she is easily arousable. Precedex is ultimately like turned off and she is able to do her exercises normally. She is monitored an ultimately is able to use her voice and speak. They are going to an ENT what sounds like for an evaluation for a tracheostomy. I had long conversation with them and strongly encouraged her to get a trach. She has had frequent attacks requiring ED visits. She understands she agrees. They have an appointment on Friday. She does not require blood work or imaging at this time. Discharge Plan Departure Patient Disposition: Home Clinical Impression: Vocal cord dysfunction Activity Restrictions/Additional Instructions: *You have been diagnosed with vocal cord dysfunction *What to do: At this time when you come to the ER to get a Precedex drip steroids Ativan and fluids I do strongly encourage you to get tracheostomy *Continue to take medications as directed *Follow up with your primary care provider in 2-3 days or call [phone] *Return to ER if you should have any new, worsening or concerning symptoms Prescriptions: No Action lorazepam 1 mg tablet 1 mg PO TID PRN (Reason: vocal cord spasm) 30 Days Qty: 30 0RF epinephrine 0.3 mg/0.3 mL auto-injector 0.3 mg IM Q5-15M PRN (Reason: anaphylaxis) Qty: 2 0RF Rx Instructions: do not exceed 3 doses per episode amlodipine 2.5 mg tablet 2.5 mg PO DAILY ipratropium bromide 21 mcg (0.03 %) spray,non-aerosol 2 spray intranasal BID Rx Instructions: administer into each nostril fluticasone propion-salmeterol [Wixela Inhub] 250-50 mcg/dose blister with device 1 inh inhalation DAILY albuterol sulfate 90 mcg/actuation HFA aerosol inhaler 2 puff inhalation Q4-6H ondansetron 4 mg tablet,disintegrating 4 mg PO Q8H cetirizine 10 mg tablet 20 mg PO BID Qty: 120 5RF Rx Instructions: Start taking 1 tablet daily for 7 days then 1 tablet twice a day for 7 days then 2 tablets twice a day indefinitely Referrals: ProviderAlen [Primary Care Provider] - Stand Alone Forms: Patient Portal/API
== END 2024-03-06 17:55 | disposition home or self-care (01) ==
PROVIDERS: Emergency Provider Emergency Medicine
DX: J38.3 Other diseases of vocal cords (principal)
CPT/HCPCS: 36415; 96365; 96375; 99284; 99291; J1100; J2060

== ENCOUNTER 2024-03-09 14:29 | Emergency (ER) | payer OTHER, SELFPAY ==
[2024-03-09] VITALS (18 sets, daily range): BP systolic 101–174; BP diastolic 59–112; PULSE 69–109; RESP 16–36; TEMP 36.6; O2SAT 94–99
[2024-03-09] MEDS: LORazepam 2 MG/ML INJ 1 MG IV (14:57)
[2024-03-09] MEDS: DEXAMETHASONE 10 MG/ML VIAL IV (14:57)
--- NOTE | 2024-03-09 15:14 | ED_ITS ---
HPI - SOB/Dyspnea <Kiya Goncalves, DO - Last Filed: 03/14/24 07:33> General Chief Complaint: Shortness of Breath/Dyspnea Stated Complaint: SOB Time Seen by Provider: 03/09/24 14:40 Source: patient Mode of arrival: Wheelchair History of Present Illness HPI Narrative: Patient is a 48-year-old female with vocal cord dysfunction presenting today with vocal cord dysfunction. She has chronic VSD she was seen by ENT yesterday who recommended Botox injections. She thinks that the irritation yesterday from the scope may have caused some of the today. I have seen her multiple times she is Ativan dexamethasone and Precedex which quickly help. She sometimes chokes on her spit and requires yonker. Related Data Home Medications Medication Instructions Recorded Confirmed albuterol sulfate 90 mcg/actuation 2 puff inhalation Q4-6H 12/15/23 12/15/23 aerosol inhaler amlodipine 2.5 mg tablet 2.5 mg PO DAILY 12/15/23 12/15/23 fluticasone 250 mcg-salmeterol 50 1 inh inhalation DAILY 12/15/23 12/15/23 mcg/dose blistr powdr for inhalation (Wixela Inhub) ipratropium bromide 21 mcg (0.03 2 spray intranasal BID 12/15/23 12/15/23 %) nasal spray ondansetron 4 mg disintegrating 4 mg PO Q8H 12/15/23 12/15/23 tablet Previous Rx's Medication Instructions Recorded cetirizine 10 mg tablet 20 mg (2 x 10 mg) PO BID #120 tabs 12/15/23 lorazepam 1 mg tablet 1 mg PO TID PRN vocal cord spasm 02/20/24 30 days #30 tabs epinephrine 0.3 mg/0.3 mL 0.3 mg (0.3 mL) IM Q5-15M PRN 02/21/24 injection, auto-injector anaphylaxis #2 ea epinephrine 0.3 mg/0.3 mL 0.3 mg (0.3 mL) IM Q5-15M PRN VCD 03/09/24 injection, auto-injector #2 ea Allergies Allergy/AdvReac Type Severity Reaction Status Date / Time codeine Allergy Unknown VOMITING, Verified 03/09/24 14:41 HIVES shellfish derived Allergy Unknown VOMITING Verified 03/09/24 14:41 adhesive AdvReac Unknown HIVES FROM Verified 03/09/24 14:41 TAPE iodine AdvReac Unknown ITCHING, Verified 03/09/24 14:41 HIVES Patient History <Kiya Goncalves DO - Last Filed: 03/14/24 07:33> Medical History Hypothyroid Surgical History H/O shoulder surgery Social History Smoking Status: Never smoker Smoking Status: Never smoker alcohol intake frequency: holidays/special occasions only Substance Use Type: marijuana Exam <Kiya Goncalves DO - Last Filed: 03/14/24 07:33> Initial Vital Signs Initial Vital Signs: Vital Signs Temperature 98 F 03/09/24 14:39 Pulse Rate 104 H 03/09/24 14:39 Respiratory Rate 16 03/09/24 14:39 Blood Pressure 174/112 H 03/09/24 14:39 Pulse Oximetry 99 03/09/24 14:39 Oxygen Delivery Method Room Air 03/09/24 14:39 GENERAL: Obvious stridor moderate to severe distress, continues to be able to write on a note pad HEENT: Head atraumatic,EOMI, pupils reactive, face symmetric, CARDIOVASCULAR: Regular rate and rhythm without murmurs, rubs or gallops. RESPIRATORY: Breath sounds equal bilaterally, no wheezes rales or rhonchi. EXTREMITIES: Normal range of motion, no clubbing or edema. Neurovascularly intact NEUROLOGICAL: Alert and oriented x4.Normal gait and speech. SKIN: Warm, dry, no laceration, no petechiae, no rashes or lesions. <Leif Blackwell MD - Last Filed: 03/09/24 19:52> Initial Vital Signs Initial Vital Signs: Vital Signs Temperature 98 F 03/09/24 14:39 Pulse Rate 104 H 03/09/24 14:39 Respiratory Rate 16 03/09/24 14:39 Blood Pressure 174/112 H 03/09/24 14:39 Pulse Oximetry 99 03/09/24 14:39 Oxygen Delivery Method Room Air 03/09/24 14:39 Course <Kiya Goncalves DO - Last Filed: 03/14/24 07:33> Orders Ordered: Discontinued Medications Dexamethasone (Dexamethasone 10 Mg/Ml Vial) 10 mg IV NOW ONE Stop: 03/09/24 14:42 Last Admin: 03/09/24 14:42 Dose: Not Given Documented By: CHAKA Dexamethasone (Dexamethasone 10 Mg/Ml Vial) 10 mg IV NOW ONE Stop: 03/09/24 14:42 Last Admin: 03/09/24 14:57 Dose: 10 mg Documented By: MACKENZIE dexmedeTOMIDine in 0.9 % NaCL (Precedex) 400 mcg in 100 mls @ 5.647 mls/hr IV TITRATE HORTENCIA; Protocol Last Titration: 03/09/24 18:21 Dose: 0 mcg/kg/hr, 0 mls/hr Documented By: Titration: 03/09/24 17:56 Dose: 0.04 mcg/kg/hr, 1 mls/hr Documented By: Titration: 03/09/24 17:25 Dose: 0.08 mcg/kg/hr, 2.3 mls/hr Documented By: Titration: 03/09/24 16:59 Dose: 0.13 mcg/kg/hr, 3.6 mls/hr Documented By: Titration: 03/09/24 16:41 Dose: 0.16 mcg/kg/hr, 4.6 mls/hr Documented By: Admin: 03/09/24 15:15 Dose: 0.2 mcg/kg/hr, 5.647 mls/hr Documented By: MACKENZIE Lorazepam (Lorazepam 2 Mg/Ml Inj) 1 mg IV NOW ONE Stop: 03/09/24 14:42 Last Admin: 03/09/24 14:43 Dose: Not Given Documented By: CHAKA Lorazepam (Lorazepam 2 Mg/Ml Inj) 1 mg IV NOW ONE Stop: 03/09/24 14:42 Last Admin: 03/09/24 14:57 Dose: 1 mg Documented By: MACKENZIE Lorazepam (Lorazepam 2 Mg/Ml Inj) 0.5 mg IV NOW ONE Stop: 03/09/24 15:16 Last Admin: 03/09/24 15:17 Dose: 0.5 mg Documented By: MACKENZIE Vital Signs Vital signs: Vital Signs - 8 hr 03/09/24 14:39 03/09/24 14:45 03/09/24 14:47 Temperature 98 F Pulse Rate 104 H 93 H 97 H Respiratory Rate 16 Blood Pressure 174/112 H Pulse Oximetry 99 98 98 Oxygen Delivery Method Room Air 03/09/24 14:47 03/09/24 15:00 03/09/24 15:01 Temperature Pulse Rate 86 85 Respiratory Rate Blood Pressure 161/89 H Pulse Oximetry 98 99 Oxygen Delivery Method 03/09/24 15:01 03/09/24 15:30 03/09/24 15:31 Temperature Pulse Rate 109 H Respiratory Rate 25 H Blood Pressure 154/71 H 134/78 Pulse Oximetry 99 Oxygen Delivery Method 03/09/24 15:31 03/09/24 16:00 03/09/24 16:00 Temperature Pulse Rate 107 H 102 H Respiratory Rate 18 22 Blood Pressure 139/77 Pulse Oximetry 98 97 Oxygen Delivery Method 03/09/24 16:25 03/09/24 16:25 03/09/24 16:30 Temperature Pulse Rate 101 H 91 H Respiratory Rate 36 H 27 H Blood Pressure 133/59 L Pulse Oximetry 97 96 Oxygen Delivery Method 03/09/24 16:31 03/09/24 16:31 03/09/24 17:00 Temperature Pulse Rate 88 85 Respiratory Rate 30 H 18 Blood Pressure 101/63 Pulse Oximetry 96 99 Oxygen Delivery Method 03/09/24 17:01 03/09/24 17:01 03/09/24 17:30 Temperature Pulse Rate 85 69 Respiratory Rate 22 23 Blood Pressure 141/66 H Pulse Oximetry 96 94 Oxygen Delivery Method 03/09/24 17:30 03/09/24 18:00 03/09/24 18:01 Temperature Pulse Rate 94 H 81 Respiratory Rate 28 H 22 Blood Pressure 117/71 Pulse Oximetry 97 97 Oxygen Delivery Method 03/09/24 18:01 03/09/24 18:30 03/09/24 18:31 Temperature Pulse Rate 80 79 Respiratory Rate 16 22 Blood Pressure 142/70 H Pulse Oximetry 96 95 Oxygen Delivery Method 03/09/24 18:31 Temperature Pulse Rate Respiratory Rate Blood Pressure 141/77 H Pulse Oximetry Oxygen Delivery Method <Leif Blackwell MD - Last Filed: 03/09/24 19:52> Orders Ordered: Discontinued Medications Dexamethasone (Dexamethasone 10 Mg/Ml Vial) 10 mg IV NOW ONE Stop: 03/09/24 14:42 Last Admin: 03/09/24 14:42 Dose: Not Given Documented By: [facility] Dexamethasone (Dexamethasone 10 Mg/Ml Vial) 10 mg IV NOW ONE Stop: 03/09/24 14:42 Last Admin: 03/09/24 14:57 Dose: 10 mg Documented By: MACKENZIE dexmedeTOMIDine in 0.9 % NaCL (Precedex) 400 mcg in 100 mls @ 5.647 mls/hr IV TITRATE HORTENCIA; Protocol Last Titration: 03/09/24 18:21 Dose: 0 mcg/kg/hr, 0 mls/hr Documented By: Titration: 03/09/24 17:56 Dose: 0.04 mcg/kg/hr, 1 mls/hr Documented By: Titration: 03/09/24 17:25 Dose: 0.08 mcg/kg/hr, 2.3 mls/hr Documented By: Titration: 03/09/24 16:59 Dose: 0.13 mcg/kg/hr, 3.6 mls/hr Documented By: Titration: 03/09/24 16:41 Dose: 0.16 mcg/kg/hr, 4.6 mls/hr Documented By: Admin: 03/09/24 15:15 Dose: 0.2 mcg/kg/hr, 5.647 mls/hr Documented By: MACKENZIE Lorazepam (Lorazepam 2 Mg/Ml Inj) 1 mg IV NOW ONE Stop: 03/09/24 14:42 Last Admin: 03/09/24 14:43 Dose: Not Given Documented By: CHAKA Lorazepam (Lorazepam 2 Mg/Ml Inj) 1 mg IV NOW ONE Stop: 03/09/24 14:42 Last Admin: 03/09/24 14:57 Dose: 1 mg Documented By: MACKENZIE Lorazepam (Lorazepam 2 Mg/Ml Inj) 0.5 mg IV NOW ONE Stop: 03/09/24 15:16 Last Admin: 03/09/24 15:17 Dose: 0.5 mg Documented By: MACKENZIE Vital Signs Vital signs: Vital Signs - 8 hr 03/09/24 14:39 03/09/24 14:45 03/09/24 14:47 Temperature 98 F Pulse Rate 104 H 93 H 97 H Respiratory Rate 16 Blood Pressure 174/112 H Pulse Oximetry 99 98 98 Oxygen Delivery Method Room Air 03/09/24 14:47 03/09/24 15:00 03/09/24 15:01 Temperature Pulse Rate 86 85 Respiratory Rate Blood Pressure 161/89 H Pulse Oximetry 98 99 Oxygen Delivery Method 03/09/24 15:01 03/09/24 15:30 03/09/24 15:31 Temperature Pulse Rate 109 H Respiratory Rate 25 H Blood Pressure 154/71 H 134/78 Pulse Oximetry 99 Oxygen Delivery Method 03/09/24 15:31 03/09/24 16:00 03/09/24 16:00 Temperature Pulse Rate 107 H 102 H Respiratory Rate 18 22 Blood Pressure 139/77 Pulse Oximetry 98 97 Oxygen Delivery Method 03/09/24 16:25 03/09/24 16:25 03/09/24 16:30 Temperature Pulse Rate 101 H 91 H Respiratory Rate 36 H 27 H Blood Pressure 133/59 L Pulse Oximetry 97 96 Oxygen Delivery Method 03/09/24 16:31 03/09/24 16:31 03/09/24 17:00 Temperature Pulse Rate 88 85 Respiratory Rate 30 H 18 Blood Pressure 101/63 Pulse Oximetry 96 99 Oxygen Delivery Method 03/09/24 17:01 03/09/24 17:01 03/09/24 17:30 Temperature Pulse Rate 85 69 Respiratory Rate 22 23 Blood Pressure 141/66 H Pulse Oximetry 96 94 Oxygen Delivery Method 03/09/24 17:30 03/09/24 18:00 03/09/24 18:01 Temperature Pulse Rate 94 H 81 Respiratory Rate 28 H 22 Blood Pressure 117/71 Pulse Oximetry 97 97 Oxygen Delivery Method 03/09/24 18:01 03/09/24 18:30 03/09/24 18:31 Temperature Pulse Rate 80 79 Respiratory Rate 16 22 Blood Pressure 142/70 H Pulse Oximetry 96 95 Oxygen Delivery Method 03/09/24 18:31 Temperature Pulse Rate Respiratory Rate Blood Pressure 141/77 H Pulse Oximetry Oxygen Delivery Method MDM - SOB/Dyspnea <Kiya Goncalves DO - Last Filed: 03/14/24 07:33> MDM Narrative Medical decision making narrative: Patient 48-year-old female with known vocal cord dysfunction presents again with vocal cord dysfunction. She frequently improves on Precedex she is doing today. Precedex is weaned. Patient signed out to Dr. Blackwell awaiting for her to feel better and be discharged home <Leif Blackwell MD - Last Filed: 03/09/24 19:52> MDM Narrative Medical decision making narrative: Patient 48-year-old female with known vocal cord dysfunction presents again with vocal cord dysfunction. She frequently improves on Precedex she is doing today. Precedex is weaned. Patient signed out to Dr. Blackwell awaiting for her to feel better and be discharged home Rishi, 03/09/24 @1600. Sign-out from Dr. Goncalves. Patient has history of vocal cord dysfunction, numerous previous similar presentations, usually responsive to Decadron, Ativan, and has required Precedex infusions that are usually weaned off. Patient is awaiting Botox trial with Otolaryngology, might possibly have future tracheostomy. We will attempt wean off of Precedex, possible discharge home if successful as per previous encounters. 1830, patient weaned off of Precedex, feels better, requesting epinephrine to be sent to their pharmacy as she uses it sometimes for her VCD symptoms. Follow up with ENT for Botox trial as planned. Improved, stable, home with family. Patient requested refill of her epinephrine pen Injector set, that she occasionally uses in case of allergic reaction, to inject her set sent to her pharmacy [facility] [place] [facility]. Home with family Critical Care Time <Leif Blackwell MD - Last Filed: 03/09/24 19:52> Critical Care Time Critical Care Time: Yes Total Critical Care Time: 31 Attestation: The high probability of a clinically significant, sudden or life threatening deterioration of the [cardiopulmonary] system(s) required my full and direct attention, intervention and personal management. The aggregate critical care time was [31] minutes. This time is in addition to time spent performing reported procedures but includes the following: [x] Data Review and interpretation [x] Patient assessment and monitoring of vital signs [x] Documentation [x] Medication orders and management Discharge Plan Departure Patient Disposition: Home Clinical Impression: Vocal cord dysfunction Activity Restrictions/Additional Instructions: *You have been diagnosed with vocal cord dysfunction *What to do: Sorry to see you again. I hope has botox helps *Continue to take medications as directed *Follow up with your primary care provider in 2-3 days or call [phone] *Return to ER if you should have any new, worsening or concerning symptoms Prescriptions: New epinephrine 0.3 mg/0.3 mL auto-injector 0.3 mg IM Q5-15M PRN (Reason: VCD) Qty: 2 0RF Rx Instructions: do not exceed 3 doses per episode No Action lorazepam 1 mg tablet 1 mg PO TID PRN (Reason: vocal cord spasm) 30 Days Qty: 30 0RF epinephrine 0.3 mg/0.3 mL auto-injector 0.3 mg IM Q5-15M PRN (Reason: anaphylaxis) Qty: 2 0RF Rx Instructions: do not exceed 3 doses per episode amlodipine 2.5 mg tablet 2.5 mg PO DAILY ipratropium bromide 21 mcg (0.03 %) spray,non-aerosol 2 spray intranasal BID Rx Instructions: administer into each nostril fluticasone propion-salmeterol [Wixela Inhub] 250-50 mcg/dose blister with device 1 inh inhalation DAILY albuterol sulfate 90 mcg/actuation HFA aerosol inhaler 2 puff inhalation Q4-6H ondansetron 4 mg tablet,disintegrating 4 mg PO Q8H cetirizine 10 mg tablet 20 mg PO BID Qty: 120 5RF Rx Instructions: Start taking 1 tablet daily for 7 days then 1 tablet twice a day for 7 days then 2 tablets twice a day indefinitely Referrals: ProviderAlen [Primary Care Provider] - Stand Alone Forms: Patient Portal/API
[2024-03-09] MEDS: dexmedeTOMIDine in 0.9 % NaCL 400 MCG/100 ML PLAST..BAG 5.647 MCG IV (15:15)
[2024-03-09] MEDS: LORazepam 2 MG/ML INJ 0.5 MG IV (15:17)
== END 2024-03-09 19:05 | disposition home or self-care (01) ==
PROVIDERS: Emergency Provider Emergency Medicine
DX: J38.3 Other diseases of vocal cords (principal)
CPT/HCPCS: 36415; 96365; 96366; 96375; 99284; J1100; J2060

== ENCOUNTER 2024-03-16 14:50 | Emergency (ER) | payer OTHER, SELFPAY ==
[2024-03-16] VITALS (12 sets, daily range): BP systolic 134–186; BP diastolic 71–104; PULSE 79–91; RESP 13–18; TEMP 36.4; O2SAT 94–100; BMI 42.5
--- NOTE | 2024-03-16 15:02 | ED.GENADULT ---
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 Lindquist locally. She has had Botox yesterday at [facility]. Patient states today she was on the phone got agitated upset and started to have symptoms. Patient has tried using her valve which is helpful 95% of the time but once she gets to a certain point is not helpful. She is received IV steroids and lorazepam in the past which has been helpful sometimes required Precedex. Patient has been here 3 times prior for similar symptoms. She denies fevers, no difficulty with breathing in her chest she describes it as all is in her throat. She has not really able to speak but she can write on paper to answer questions without issue. No chest pain or pressure. They note that she might have thrown up a little earlier up phlegm. No other GI or urinary symptoms reported. No syncope. She has not currently on any new medications. She is still taking her regular medications. Reports allergies to codeine and iodine. No tobacco, no alcohol no recreational drugs. She is accompanied by her primary care physician. Patient has received epinephrine in the past but did not have any improvement in those episodes. Related Data Home Medications Medication Instructions Recorded Confirmed albuterol sulfate 90 mcg/actuation 2 puff inhalation Q4-6H 12/15/23 12/15/23 aerosol inhaler amlodipine 2.5 mg tablet 2.5 mg PO DAILY 12/15/23 12/15/23 fluticasone 250 mcg-salmeterol 50 1 inh inhalation DAILY 12/15/23 12/15/23 mcg/dose blistr powdr for inhalation (Wixela Inhub) ipratropium bromide 21 mcg (0.03 2 spray intranasal BID 12/15/23 12/15/23 %) nasal spray ondansetron 4 mg disintegrating 4 mg PO Q8H 12/15/23 12/15/23 tablet Previous Rx's Medication Instructions Recorded cetirizine 10 mg tablet 20 mg (2 x 10 mg) PO BID #120 tabs 12/15/23 lorazepam 1 mg tablet 1 mg PO TID PRN vocal cord spasm 02/20/24 30 days #30 tabs epinephrine 0.3 mg/0.3 mL 0.3 mg (0.3 mL) IM Q5-15M PRN 02/21/24 injection, auto-injector anaphylaxis #2 ea epinephrine 0.3 mg/0.3 mL 0.3 mg (0.3 mL) IM Q5-15M PRN VCD 03/09/24 injection, auto-injector #2 ea Allergies Allergy/AdvReac Type Severity Reaction Status Date / Time codeine Allergy Unknown VOMITING, Verified 03/16/24 15:02 HIVES shellfish derived Allergy Unknown VOMITING Verified 03/16/24 15:02 adhesive AdvReac Unknown HIVES FROM Verified 03/16/24 15:02 TAPE iodine AdvReac Unknown ITCHING, Verified 03/16/24 15:02 HIVES Review of Systems <Bianca Broussard DO - Last Filed: 03/18/24 07:18> Review of Systems ROS Unobtainable: All systems reviewed & are unremarkable except as noted in HPI and below Patient History <Bianca Broussard DO - Last Filed: 03/18/24 07:18> Medical History Hypothyroid Surgical History H/O shoulder surgery Social History Smoking Status: Never smoker Smoking Status: Never smoker alcohol intake frequency: holidays/special occasions only Substance Use Type: marijuana Exam <Bianca Broussard DO - Last Filed: 03/18/24 07:18> Narrative Exam Narrative: GEN: well nourished, well appearing female, alert and oriented x 3, patient appears to be in mild distress. HEENT: Atraumatic, pupils are equal round reactive to light, extraocular movements are intact, nares are clear, there is no conjunctival pallor. Throat is clear without any exudates, erythema, tonsillar enlargement or uvular deviation HEART: Regular rate and rhythm without murmur, clicks, rubs. LUNGS:Lungs clear to auscultation, no wheezes, rales, crackles, chest moves symmetrically, no tachypnea. Patient has inspiratory stridor. No expiratory stridor appreciated. No accessory muscle use ABD:bowel sounds normal, soft, non-tender, no guarding, rebound, rigidity, no masses noted, no hepatosplenomegaly MSCL: Non-tender, no muscle atrophy, muscles strength 5/5 upper and lower extremities, full range of motion, normal gait NEURO:CN 2-12 intact, sensation normal SKIN: No rash, erythema or other skin changes Initial Vital Signs Initial Vital Signs: Vital Signs Temperature 97.6 F 03/16/24 14:55 Pulse Rate 88 03/16/24 14:55 Respiratory Rate 13 03/16/24 14:55 Blood Pressure 186/89 H 03/16/24 14:55 Pulse Oximetry 100 03/16/24 14:55 Oxygen Delivery Method Room Air 03/16/24 14:55 <Andry North DO - Last Filed: 03/16/24 21:24> Initial Vital Signs Initial Vital Signs: Vital Signs Temperature 97.6 F 03/16/24 14:55 Pulse Rate 88 03/16/24 14:55 Respiratory Rate 13 03/16/24 14:55 Blood Pressure 186/89 H 03/16/24 14:55 Pulse Oximetry 100 03/16/24 14:55 Oxygen Delivery Method Room Air 03/16/24 14:55 Course <Bianca Broussard DO - Last Filed: 03/18/24 07:18> Orders Ordered: Discontinued Medications Dexamethasone (Dexamethasone 10 Mg/Ml Vial) 10 mg IV NOW ONE Stop: 03/16/24 15:03 Last Admin: 03/16/24 15:26 Dose: 10 mg Documented By: RB Dexamethasone (Dexamethasone 10 Mg/Ml Vial) 10 mg IV NOW ONE Stop: 03/16/24 16:02 Last Admin: 03/16/24 16:13 Dose: 10 mg Documented By: RB Epinephrine (Racepinephrine 0.5 Ml Neb) 0.5 ml INH NOW ONE Stop: 03/16/24 16:02 Last Admin: 03/16/24 16:14 Dose: Not Given Documented By: RB Sodium Chloride (Normal Saline 0.9%) 1,000 mls @ 1,000 mls/hr IV BOLUS ONE Stop: 03/16/24 16:01 Last Infusion: 03/16/24 16:32 Dose: Infused Documented By: Admin: 03/16/24 15:25 Dose: 1,000 mls/hr Documented By: RB Lorazepam (Lorazepam 2 Mg/Ml Inj) 1 mg IV NOW ONE Stop: 03/16/24 15:03 Last Admin: 03/16/24 15:25 Dose: 1 mg Documented By: RB Lorazepam (Lorazepam 2 Mg/Ml Inj) 1 mg IV NOW ONE Stop: 03/16/24 16:06 Last Admin: 03/16/24 16:13 Dose: 1 mg Documented By: RB Morphine Sulfate (Morphine 4 Mg/Ml Inj) 4 mg IV NOW ONE Stop: 03/16/24 18:37 Last Admin: 03/16/24 18:49 Dose: 4 mg Documented By: RB Vital Signs Vital signs: Vital Signs - 8 hr 03/16/24 14:55 03/16/24 16:50 03/16/24 17:05 Temperature 97.6 F Pulse Rate 88 81 91 H Respiratory Rate 13 Blood Pressure 186/89 H Pulse Oximetry 100 98 97 Oxygen Delivery Method Room Air Room Air 03/16/24 17:10 03/16/24 17:10 03/16/24 17:15 Temperature Pulse Rate 79 79 89 Respiratory Rate Blood Pressure 143/104 H 143/104 H Pulse Oximetry 97 97 97 Oxygen Delivery Method Room Air 03/16/24 17:20 03/16/24 17:30 03/16/24 17:45 Temperature Pulse Rate 83 81 82 Respiratory Rate Blood Pressure 134/86 Pulse Oximetry 97 98 97 Oxygen Delivery Method 03/16/24 18:15 03/16/24 18:30 03/16/24 18:59 Temperature Pulse Rate 89 87 81 Respiratory Rate Blood Pressure 143/96 H 151/87 H Pulse Oximetry 96 97 97 Oxygen Delivery Method Room Air 03/16/24 19:30 Temperature Pulse Rate 85 Respiratory Rate 18 Blood Pressure 143/71 H Pulse Oximetry 94 Oxygen Delivery Method Room Air <Andry North DO - Last Filed: 03/16/24 21:24> Orders Ordered: Discontinued Medications Dexamethasone (Dexamethasone 10 Mg/Ml Vial) 10 mg IV NOW ONE Stop: 03/16/24 15:03 Last Admin: 03/16/24 15:26 Dose: 10 mg Documented By: RB Dexamethasone (Dexamethasone 10 Mg/Ml Vial) 10 mg IV NOW ONE Stop: 03/16/24 16:02 Last Admin: 03/16/24 16:13 Dose: 10 mg Documented By: RB Epinephrine (Racepinephrine 0.5 Ml Neb) 0.5 ml INH NOW ONE Stop: 03/16/24 16:02 Last Admin: 03/16/24 16:14 Dose: Not Given Documented By: RB Sodium Chloride (Normal Saline 0.9%) 1,000 mls @ 1,000 mls/hr IV BOLUS ONE Stop: 03/16/24 16:01 Last Infusion: 03/16/24 16:32 Dose: Infused Documented By: Admin: 03/16/24 15:25 Dose: 1,000 mls/hr Documented By: RB Lorazepam (Lorazepam 2 Mg/Ml Inj) 1 mg IV NOW ONE Stop: 03/16/24 15:03 Last Admin: 03/16/24 15:25 Dose: 1 mg Documented By: RB Lorazepam (Lorazepam 2 Mg/Ml Inj) 1 mg IV NOW ONE Stop: 03/16/24 16:06 Last Admin: 03/16/24 16:13 Dose: 1 mg Documented By: RB Morphine Sulfate (Morphine 4 Mg/Ml Inj) 4 mg IV NOW ONE Stop: 03/16/24 18:37 Last Admin: 03/16/24 18:49 Dose: 4 mg Documented By: RB Vital Signs Vital signs: Vital Signs - 8 hr 03/16/24 14:55 03/16/24 16:50 03/16/24 17:05 Temperature 97.6 F Pulse Rate 88 81 91 H Respiratory Rate 13 Blood Pressure 186/89 H Pulse Oximetry 100 98 97 Oxygen Delivery Method Room Air Room Air 03/16/24 17:10 03/16/24 17:10 03/16/24 17:15 Temperature Pulse Rate 79 79 89 Respiratory Rate Blood Pressure 143/104 H 143/104 H Pulse Oximetry 97 97 97 Oxygen Delivery Method Room Air 03/16/24 17:20 03/16/24 17:30 03/16/24 17:45 Temperature Pulse Rate 83 81 82 Respiratory Rate Blood Pressure 134/86 Pulse Oximetry 97 98 97 Oxygen Delivery Method 03/16/24 18:15 03/16/24 18:30 03/16/24 18:59 Temperature Pulse Rate 89 87 81 Respiratory Rate Blood Pressure 143/96 H 151/87 H Pulse Oximetry 96 97 97 Oxygen Delivery Method Room Air 03/16/24 19:30 Temperature Pulse Rate 85 Respiratory Rate 18 Blood Pressure 143/71 H Pulse Oximetry 94 Oxygen Delivery Method Room Air Medical Decision Making <Bianca Broussard, DO - Last Filed: 03/18/24 07:18> Lab Data 03/16/24 15:15 03/16/24 15:15 Labs: Lab Results 03/16/24 Range/Units 15:15 WBC 9.8 (4.5-11.0) X10^3/uL RBC 4.59 (4.0-5.2) X10^6/uL Hgb 13.0 (12.0-16.0) g/dL Hct 37.9 (36-46) % MCV 82.7 (80-100) fL MCH 28.3 (26-34) PG MCHC 34.2 (30-36) % RDW 14.4 (11.6-14.8) % Plt Count 336 (150-400) X10^3/uL Neut % (Auto) 69.4 (50-75) % Lymph % (Auto) 23.3 L (25-40) % [place] % (Auto) 4.9 (3-14) % Eos % (Auto) 1.9 L (2-4) % Baso % (Auto) 0.5 (0-2) % Neut # (Auto) 6800 (9881-4248) /uL Lymph # (Auto) 2300 (0458-1405) /uL [place] # (Auto) 500 (0-900) /uL Eos # (Auto) 200 (0-450) /uL Baso # (Auto) 0 (0-100) /uL Sodium 140 (137-145) mmol/L Potassium 4.1 (3.4-5.1) mmol/L Chloride 106 (98-107) mmol/L Carbon Dioxide 31 (22-32) mmol/L BUN 18 H (7-17) mg/dL Creatinine 1.20 H (0.52-1.04) mg/dL Estimated GFR 55 L (>60) mL/min BUN/Creatinine Ratio 15.0 (6-22) Glucose 100 (70-100) mg/dL Calcium 9.0 (8.4-10.2) mg/dL Total Bilirubin 0.4 (0.2-1.3) mg/dL AST 19 (14-36) IU/L ALT 20 (<35) IU/L Alkaline Phosphatase 87 (38-126) U/L Total Protein 7.2 (6.3-8.2) g/dL Albumin 4.2 (3.5-5.0) g/dL Globulin 3.0 (1.7-4.1) g/dL Albumin/Globulin Ratio 1.4 (1.0-2.8) MDM Narrative Medical decision making narrative: 48-year-old female with reported vocal cord dysfunction Dr. Lindquist did scope per no structural changes she was not having an episode occurred but he noted irritation and chronic laryngitis. He states would continue with current therapies if they have been working but would recommend talking with the her subspecialists who did her Botox. He also recommends if speech therapy would be willing to see her in the ED that would be helpful. Patient has also seen ENT at [facility]. Put a call out I did speak with 1 of the they are also going to speak with the attending. They recommended racemic epi, can add additional 10 mg of dexamethasone steroids. If lorazepam has been helpful to try this. They will call back after speaking with their attending. Re-evaluated patient states about the same maybe slightly better. Continues to have stridor. She states she can not tolerate racemic epi your any inhaled medications. She states it makes everything worse and stuff goes badly. She is agreeable to try another 10 of dexamethasone and some additional Ativan. She continues to right in his able to communicate this way. She has not had any desats she does not appear to be having increased work of breathing. ENT from [facility] called back they do not feel that IM epi would be helpful. Patient does not tolerate racemic epi. They would recommend trying CPAP positive pressure might be helpful. They do not have any additional recommendations beyond this but if other options have worked in the past would be appropriate. They note that her Botox hit full affect for about 3 days. Patient is agreeable to try CPAP she states she tried to in the ICU once before she does not remember how it went. Patient has been on CPAP for over an hour, she feels her breathing is easier as kind of a lot of pressure. She would like to try and take a break and see how that goes. Patient does seem to have improved. She still has a little bit of mild symptoms. She is using her Acapella. She does not have the same level of stridor that she did initially upon arrival. Plan to continue to monitor. If patient continues to improve we will discharge home. If she has resurgence or worsening of symptoms likely placed back on CPAP with potential for Precedex. Signed out to Dr. North additional monitoring. <Andry North, - Last Filed: 03/16/24 21:24> Lab Data Labs: Lab Results 03/16/24 Range/Units 15:15 WBC 9.8 (4.5-11.0) X10^3/uL RBC 4.59 (4.0-5.2) X10^6/uL Hgb 13.0 (12.0-16.0) g/dL Hct 37.9 (36-46) % MCV 82.7 (80-100) fL MCH 28.3 (26-34) PG MCHC 34.2 (30-36) % RDW 14.4 (11.6-14.8) % Plt Count 336 (150-400) X10^3/uL Neut % (Auto) 69.4 (50-75) % Lymph % (Auto) 23.3 L (25-40) % [place] % (Auto) 4.9 (3-14) % Eos % (Auto) 1.9 L (2-4) % Baso % (Auto) 0.5 (0-2) % Neut # (Auto) 6800 (7329-2547) /uL Lymph # (Auto) 2300 (4435-7859) /uL [place] # (Auto) 500 (0-900) /uL Eos # (Auto) 200 (0-450) /uL Baso # (Auto) 0 (0-100) /uL Sodium 140 (137-145) mmol/L Potassium 4.1 (3.4-5.1) mmol/L Chloride 106 (98-107) mmol/L Carbon Dioxide 31 (22-32) mmol/L BUN 18 H (7-17) mg/dL Creatinine 1.20 H (0.52-1.04) mg/dL Estimated GFR 55 L (>60) mL/min BUN/Creatinine Ratio 15.0 (6-22) Glucose 100 (70-100) mg/dL Calcium 9.0 (8.4-10.2) mg/dL Total Bilirubin 0.4 (0.2-1.3) mg/dL AST 19 (14-36) IU/L ALT 20 (<35) IU/L Alkaline Phosphatase 87 (38-126) U/L Total Protein 7.2 (6.3-8.2) g/dL Albumin 4.2 (3.5-5.0) g/dL Globulin 3.0 (1.7-4.1) g/dL Albumin/Globulin Ratio 1.4 (1.0-2.8) MDM Narrative Medical decision making narrative: 48-year-old female with reported vocal cord dysfunction Dr. Lindquist did scope per no structural changes she was not having an episode occurred but he noted irritation and chronic laryngitis. He states would continue with current therapies if they have been working but would recommend talking with the her subspecialists who did her Botox. He also recommends if speech therapy would be willing to see her in the ED that would be helpful. Patient has also seen ENT at [facility]. Put a call out I did speak with 1 of the they are also going to speak with the attending. They recommended racemic epi, can add additional 10 mg of dexamethasone steroids. If lorazepam has been helpful to try this. They will call back after speaking with their attending. Re-evaluated patient states about the same maybe slightly better. Continues to have stridor. She states she can not tolerate racemic epi your any inhaled medications. She states it makes everything worse and stuff goes badly. She is agreeable to try another 10 of dexamethasone and some additional Ativan. She continues to right in his able to communicate this way. She has not had any desats she does not appear to be having increased work of breathing. ENT from [facility] called back they do not feel that IM epi would be helpful. Patient does not tolerate racemic epi. They would recommend trying CPAP positive pressure might be helpful. They do not have any additional recommendations beyond this but if other options have worked in the past would be appropriate. They note that her Botox hit full affect for about 3 days. Patient is agreeable to try CPAP she states she tried to in the ICU once before she does not remember how it went. Patient has been on CPAP for over an hour, she feels her breathing is easier as kind of a lot of pressure. She would like to try and take a break and see how that goes. Patient does seem to have improved. She still has a little bit of mild symptoms. She is using her Acapella. She does not have the same level of stridor that she did initially upon arrival. Plan to continue to monitor. If patient continues to improve we will discharge home. If she has resurgence or worsening of symptoms likely placed back on CPAP with potential for Precedex. Signed out to Dr. North additional monitoring. Dr north: Received turned over. Review patient's history and physical exam. Since being here in the emergency department she has not required any further respiratory support. She states that her symptoms do seem to be improving. She can use the devices that she normally uses at home with her symptoms. She received Botox yesterday. Patient states that she was feeling well enough to go home. Will have her continue to follow all of the postprocedure instructions given by all of her specialists providers. She was given return precautions. She expressed understanding and agreement. Discharge Plan Departure Patient Disposition: Home Clinical Impression: Vocal cord dysfunction Activity Restrictions/Additional Instructions: Continue to take all of your medications as directed. Follow all of the instructions given to you by your ear nose and throat doctor and also the providers who administered the Botox. Keep all of your scheduled medical appointments. Return to the emergency department for new symptoms Prescriptions: No Action epinephrine 0.3 mg/0.3 mL auto-injector 0.3 mg IM Q5-15M PRN (Reason: VCD) Qty: 2 0RF Rx Instructions: do not exceed 3 doses per episode lorazepam 1 mg tablet 1 mg PO TID PRN (Reason: vocal cord spasm) 30 Days Qty: 30 0RF epinephrine 0.3 mg/0.3 mL auto-injector 0.3 mg IM Q5-15M PRN (Reason: anaphylaxis) Qty: 2 0RF Rx Instructions: do not exceed 3 doses per episode amlodipine 2.5 mg tablet 2.5 mg PO DAILY ipratropium bromide 21 mcg (0.03 %) spray,non-aerosol 2 spray intranasal BID Rx Instructions: administer into each nostril fluticasone propion-salmeterol [Wixela Inhub] 250-50 mcg/dose blister with device 1 inh inhalation DAILY albuterol sulfate 90 mcg/actuation HFA aerosol inhaler 2 puff inhalation Q4-6H ondansetron 4 mg tablet,disintegrating 4 mg PO Q8H cetirizine 10 mg tablet 20 mg PO BID Qty: 120 5RF Rx Instructions: Start taking 1 tablet daily for 7 days then 1 tablet twice a day for 7 days then 2 tablets twice a day indefinitely Referrals: ProviderAlen [Primary Care Provider] - Stand Alone Forms: Patient Portal/API
[2024-03-16] MEDS: SODIUM CHLORIDE 0.9% 1,000 ML 1000 ML IV (15:25)
[2024-03-16] MEDS: LORazepam 2 MG/ML INJ 1 MG IV ×2 (15:25→16:13)
[2024-03-16 15:26] LABS: Add Manual Diff / Slide Review NO; Basophils Absolute Auto 0 /uL (0-100); Basophils Percent Auto 0.5 % (0-2); Eosinophils Absolute Auto 200 /uL (0-450); Eosinophils Percent Auto 1.9 % (2-4); Hematocrit 37.9 % (36-46); Lymphocytes Absolute Auto 2300 /uL (1100-4500); Lymphocytes Percent Auto 23.3 % (25-40); Mean Corpuscular HGB Conc 34.2 % (30-36); Mean Corpuscular Hemoglobin 28.3 PG (26-34); Mean Corpuscular Volume 82.7 fL (80-100); Monocytes Absolute Auto 500 /uL (0-900); Monocytes Percent Auto 4.9 % (3-14); Neutrophils Absolute Auto 6800 /uL (1500-7000); Neutrophils Percent Auto 69.4 % (50-75); Platelet Count 336 X10^3/uL (150-400); Red Blood Cell Count 4.59 X10^6/uL (4.0-5.2); Red Cell Distribution Width 14.4 % (11.6-14.8); White Blood Cell Count 9.8 X10^3/uL (4.5-11.0)
[2024-03-16] MEDS: DEXAMETHASONE 10 MG/ML VIAL IV ×2 (15:26→16:13)
[2024-03-16 15:38] LABS: Alanine Aminotransferase 20 IU/L (<35); Albumin 4.2 g/dL (3.5-5.0); Albumin Globulin Ratio 1.4 (1.0-2.8); Alkaline Phosphatase 87 U/L (38-126); Aspartate Aminotransferase 19 IU/L (14-36); Bilirubin Total 0.4 mg/dL (0.2-1.3); Blood Urea Nitrogen 18 mg/dL (7-17); Carbon Dioxide 31 mmol/L (22-32); Chloride 106 mmol/L (98-107); Estimated Glomerular Filt Rate 55 mL/min (>60); Glucose 100 mg/dL (70-100); HEMOLYSIS < 15 (0-50); Potassium 4.1 mmol/L (3.4-5.1); Sodium 140 mmol/L (137-145); Total Protein 7.2 g/dL (6.3-8.2)
--- NOTE | 2024-03-16 16:55 | RT ---
Pt placed on CPAP of 8cmH20 with heated humidity (non-invasive) to help reduce WOB due to vocal cord dysfunction. Pt reports I don't have to try as hard and looks calm and comfortable.
[2024-03-16] MEDS: MORPHINE 4 MG/ML INJ IV (18:49)
== END 2024-03-16 20:29 | disposition home or self-care (01) ==
PROVIDERS: Emergency Medicine; Emergency Provider Emergency Medicine
DX: J38.3 Other diseases of vocal cords (principal)
CPT/HCPCS: 80053; 85025; 94660; 96361; 96374; 96375; 96376; 99283; 99284; J1100; J2060; J2270

== ENCOUNTER 2024-04-24 14:58 | Emergency (ER) | payer OTHER, SELFPAY ==
[2024-04-24] VITALS (49 sets, daily range): BP systolic 106–181; BP diastolic 58–107; PULSE 66–128; RESP 12–33; TEMP 37.3; O2SAT 92–98; BMI 42.5
[2024-04-24] MEDS: SODIUM CHLORIDE 0.9% 1,000 ML 150 ML IV (15:13)
[2024-04-24] MEDS: DEXAMETHASONE 10 MG/ML VIAL IV (15:14)
[2024-04-24] MEDS: LORazepam 2 MG/ML INJ IV (15:14)
--- NOTE | 2024-04-24 15:28 | ED.GENADULT ---
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 Has been seen multiple times in this emergency department for similar symptoms that she presents with a today. She states she has a ?paradoxical vocal cord dysfunction? she sees a specialist. Sees ENT. Occasionally gets into episodes where she was having stridor. Symptoms occurred earlier today. She did give herself an EpiPen prior to today. States that she feels like her throat is closing. No fevers. In the past patient has needed Precedex for her symptoms to improve. She was also improved with Ativan and steroids. Related Data Home Medications Medication Instructions Recorded Confirmed albuterol sulfate 90 mcg/actuation 2 puff inhalation Q4-6H 12/15/23 12/15/23 aerosol inhaler amlodipine 2.5 mg tablet 2.5 mg PO DAILY 12/15/23 12/15/23 fluticasone 250 mcg-salmeterol 50 1 inh inhalation DAILY 12/15/23 12/15/23 mcg/dose blistr powdr for inhalation (Wixela Inhub) ipratropium bromide 21 mcg (0.03 2 spray intranasal BID 12/15/23 12/15/23 %) nasal spray ondansetron 4 mg disintegrating 4 mg PO Q8H 12/15/23 12/15/23 tablet Previous Rx's Medication Instructions Recorded cetirizine 10 mg tablet 20 mg (2 x 10 mg) PO BID #120 tabs 12/15/23 epinephrine 0.3 mg/0.3 mL 0.3 mg (0.3 mL) IM Q5-15M PRN 02/21/24 injection, auto-injector anaphylaxis #2 ea epinephrine 0.3 mg/0.3 mL 0.3 mg (0.3 mL) IM Q5-15M PRN VCD 03/09/24 injection, auto-injector #2 ea Allergies Allergy/AdvReac Type Severity Reaction Status Date / Time codeine Allergy Unknown VOMITING, Verified 04/24/24 15:33 HIVES shellfish derived Allergy Unknown VOMITING Verified 04/24/24 15:33 adhesive AdvReac Unknown HIVES FROM Verified 04/24/24 15:33 TAPE iodine AdvReac Unknown ITCHING, Verified 04/24/24 15:33 HIVES Review of Systems <Andry North DO - Last Filed: 04/29/24 17:57> Review of Systems Narrative: See HPI Patient History <Andry North DO - Last Filed: 04/29/24 17:57> Medical History Hypothyroid Surgical History H/O shoulder surgery Social History Smoking Status: Never smoker Smoking Status: Never smoker alcohol intake frequency: holidays/special occasions only Substance Use Type: marijuana Exam <DO Nena Chen Last Filed: 04/29/24 17:57> Initial Vital Signs Initial Vital Signs: Vital Signs Temperature 99.1 F 04/24/24 15:00 Pulse Rate 127 H 04/24/24 15:00 Respiratory Rate 28 H 04/24/24 15:00 Blood Pressure 139/86 04/24/24 15:00 Pulse Oximetry 98 04/24/24 15:00 Oxygen Delivery Method Room Air 04/24/24 15:00 HENMT Head: normal to inspection and normocephalic Resp Effort & Inspection: cough, labored, no retractions, tachypneic and tripod positioning Other: Stridor Cardio Rate: regular rate Rhythm: regular rhythm Skin General: no rashes or lesions noted Neuro General: patient alert and patient awake Extrem General: normal to inspection and No edema <Leif Blackwell MD - Last Filed: 04/25/24 04:48> Initial Vital Signs Initial Vital Signs: Vital Signs Temperature 99.1 F 04/24/24 15:00 Pulse Rate 127 H 04/24/24 15:00 Respiratory Rate 28 H 04/24/24 15:00 Blood Pressure 139/86 04/24/24 15:00 Pulse Oximetry 98 04/24/24 15:00 Oxygen Delivery Method Room Air 04/24/24 15:00 Course <DO Nena Chen Last Filed: 04/29/24 17:57> Orders Ordered: Discontinued Medications Dexamethasone (Dexamethasone 10 Mg/Ml Vial) 10 mg IV NOW ONE Stop: 04/24/24 15:07 Last Admin: 04/24/24 15:14 Dose: 10 mg Documented By: BLU Dexamethasone (Dexamethasone 10 Mg/Ml Vial) 10 mg IV NOW ONE Stop: 04/24/24 18:08 Sodium Chloride (Normal Saline 0.9%) 1,000 mls @ 150 mls/hr IV CONT HORTENCIA Last Infusion: 04/25/24 00:27 Dose: Infused Documented By: Infusion: 04/24/24 22:26 Dose: 150 mls/hr Documented By: Infusion: 04/24/24 22:25 Dose: Infused Documented By: Admin: 04/24/24 15:13 Dose: 150 mls/hr Documented By: BLU dexmedeTOMIDine in 0.9 % NaCL (Precedex) 400 mcg in 100 mls @ 5.443 mls/hr IV TITRATE HORTENCIA; Protocol Last Titration: 04/24/24 23:05 Dose: Infused Documented By: Titration: 04/24/24 22:56 Dose: 0.1 mcg/kg/hr, 2.722 mls/hr Documented By: Titration: 04/24/24 22:40 Dose: 0.2 mcg/kg/hr, 5.443 mls/hr Documented By: Titration: 04/24/24 22:30 Dose: 0.3 mcg/kg/hr, 8.165 mls/hr Documented By: Titration: 04/24/24 22:21 Dose: 0.4 mcg/kg/hr, 10.886 mls/hr Documented By: Titration: 04/24/24 21:19 Dose: 0.5 mcg/kg/hr, 13.608 mls/hr Documented By: Titration: 04/24/24 20:36 Dose: 0.6 mcg/kg/hr, 16.329 mls/hr Documented By: Titration: 04/24/24 17:55 Dose: 0.4 mcg/kg/hr, 10.886 mls/hr Documented By: Admin: 04/24/24 17:21 Dose: 0.2 mcg/kg/hr, 5.443 mls/hr Documented By: STEVENSON POTASSIUM CHLORIDE IN WATER (Potassium Cl 10 Meq/100 Ml Pearl) 10 meq in 100 mls @ 100 mls/hr IV Q1H HORTENCIA Stop: 04/24/24 20:59 Last Infusion: 04/24/24 22:21 Dose: Infused Documented By: Admin: 04/24/24 21:19 Dose: 75 mls/hr Documented By: Infusion: 04/24/24 21:11 Dose: Infused Documented By: Infusion: 04/24/24 20:30 Dose: 75 mls/hr Documented By: Infusion: 04/24/24 19:35 Dose: 50 mls/hr Documented By: Admin: 04/24/24 19:33 Dose: 100 mls/hr Documented By: Lorazepam (Lorazepam 2 Mg/Ml Inj) 2 mg IV NOW ONE Stop: 04/24/24 15:07 Last Admin: 04/24/24 15:14 Dose: 2 mg Documented By: BLU Lorazepam (Lorazepam 2 Mg/Ml Inj) 1 mg IV NOW ONE Stop: 04/24/24 17:56 Last Admin: 04/24/24 17:58 Dose: 1 mg Documented By: STEVENSON Ondansetron HCl (Ondansetron 4 Mg/2 Ml Inj) 4 mg IV NOW ONE Stop: 04/24/24 17:41 Last Admin: 04/24/24 17:59 Dose: 4 mg Documented By: STEVENSON Potassium Chloride (Potassium Chloride 20 Meq/15 Ml Udc) 20 meq PO NOW ONE Stop: 04/25/24 00:01 Last Admin: 04/25/24 00:18 Dose: 20 meq Documented By: Vital Signs Vital signs: Vital Signs - 8 hr 04/24/24 20:50 04/24/24 20:50 04/24/24 21:00 Pulse Rate 71 Respiratory Rate 20 Blood Pressure 122/73 128/74 Pulse Oximetry 92 Oxygen Delivery Method Oxygen Flow Rate 04/24/24 21:00 04/24/24 21:10 04/24/24 21:10 Pulse Rate 72 71 Respiratory Rate 20 19 Blood Pressure 131/78 Pulse Oximetry 92 93 Oxygen Delivery Method Oxygen Flow Rate 04/24/24 21:20 04/24/24 21:20 04/24/24 21:30 Pulse Rate 72 71 Respiratory Rate 19 19 Blood Pressure 125/78 Pulse Oximetry 92 92 Oxygen Delivery Method Oxygen Flow Rate 04/24/24 21:30 04/24/24 21:40 04/24/24 21:40 Pulse Rate 70 Respiratory Rate 20 Blood Pressure 123/79 115/78 Pulse Oximetry 93 Oxygen Delivery Method Oxygen Flow Rate 04/24/24 21:50 04/24/24 21:50 04/24/24 22:00 Pulse Rate 69 Respiratory Rate 20 Blood Pressure 118/79 121/79 Pulse Oximetry 93 Oxygen Delivery Method Oxygen Flow Rate 04/24/24 22:00 04/24/24 22:10 04/24/24 22:10 Pulse Rate 70 70 Respiratory Rate 20 19 Blood Pressure 119/77 Pulse Oximetry 93 93 Oxygen Delivery Method Nasal Cannula Oxygen Flow Rate 2 04/24/24 22:20 04/24/24 22:20 04/24/24 22:30 Pulse Rate 71 Respiratory Rate 18 Blood Pressure 123/78 117/75 Pulse Oximetry 94 Oxygen Delivery Method Oxygen Flow Rate 04/24/24 22:30 04/24/24 22:40 04/24/24 22:40 Pulse Rate 69 68 Respiratory Rate 19 19 Blood Pressure 114/69 Pulse Oximetry 94 94 Oxygen Delivery Method Oxygen Flow Rate 04/24/24 22:50 04/24/24 22:50 04/24/24 23:00 Pulse Rate 69 77 Respiratory Rate 18 22 Blood Pressure 118/73 Pulse Oximetry 95 94 Oxygen Delivery Method Oxygen Flow Rate 04/24/24 23:01 04/24/24 23:01 04/24/24 23:10 Pulse Rate 77 Respiratory Rate 19 Blood Pressure 123/66 106/66 Pulse Oximetry 94 Oxygen Delivery Method Oxygen Flow Rate 04/24/24 23:10 04/24/24 23:20 04/24/24 23:20 Pulse Rate 67 70 Respiratory Rate 17 18 Blood Pressure 113/71 Pulse Oximetry 94 95 Oxygen Delivery Method Oxygen Flow Rate 04/24/24 23:30 04/24/24 23:30 04/24/24 23:40 Pulse Rate 66 Respiratory Rate 16 Blood Pressure 110/68 109/65 Pulse Oximetry 95 Oxygen Delivery Method Oxygen Flow Rate 04/24/24 23:40 04/24/24 23:50 04/24/24 23:50 Pulse Rate 66 68 Respiratory Rate 16 17 Blood Pressure 117/71 Pulse Oximetry 95 95 Oxygen Delivery Method Oxygen Flow Rate 04/25/24 00:00 04/25/24 00:00 Pulse Rate 80 Respiratory Rate 18 Blood Pressure 118/71 Pulse Oximetry 92 Oxygen Delivery Method Room Air Oxygen Flow Rate <Leif Blackwell MD - Last Filed: 04/25/24 04:48> Orders Ordered: Discontinued Medications Dexamethasone (Dexamethasone 10 Mg/Ml Vial) 10 mg IV NOW ONE Stop: 04/24/24 15:07 Last Admin: 04/24/24 15:14 Dose: 10 mg Documented By: BS Dexamethasone (Dexamethasone 10 Mg/Ml Vial) 10 mg IV NOW ONE Stop: 04/24/24 18:08 Sodium Chloride (Normal Saline 0.9%) 1,000 mls @ 150 mls/hr IV CONT HORTENCIA Last Infusion: 04/25/24 00:27 Dose: Infused Documented By: Infusion: 04/24/24 22:26 Dose: 150 mls/hr Documented By: Infusion: 04/24/24 22:25 Dose: Infused Documented By: Admin: 04/24/24 15:13 Dose: 150 mls/hr Documented By: BLU dexmedeTOMIDine in 0.9 % NaCL (Precedex) 400 mcg in 100 mls @ 5.443 mls/hr IV TITRATE HORTENCIA; Protocol Last Titration: 04/24/24 23:05 Dose: Infused Documented By: Titration: 04/24/24 22:56 Dose: 0.1 mcg/kg/hr, 2.722 mls/hr Documented By: Titration: 04/24/24 22:40 Dose: 0.2 mcg/kg/hr, 5.443 mls/hr Documented By: Titration: 04/24/24 22:30 Dose: 0.3 mcg/kg/hr, 8.165 mls/hr Documented By: Titration: 04/24/24 22:21 Dose: 0.4 mcg/kg/hr, 10.886 mls/hr Documented By: Titration: 04/24/24 21:19 Dose: 0.5 mcg/kg/hr, 13.608 mls/hr Documented By: Titration: 04/24/24 20:36 Dose: 0.6 mcg/kg/hr, 16.329 mls/hr Documented By: Titration: 04/24/24 17:55 Dose: 0.4 mcg/kg/hr, 10.886 mls/hr Documented By: JKermit Admin: 04/24/24 17:21 Dose: 0.2 mcg/kg/hr, 5.443 mls/hr Documented By: STEVENSON POTASSIUM CHLORIDE IN WATER (Potassium Cl 10 Meq/100 Ml Pearl) 10 meq in 100 mls @ 100 mls/hr IV Q1H HORTENCIA Stop: 04/24/24 20:59 Last Infusion: 04/24/24 22:21 Dose: Infused Documented By: Admin: 04/24/24 21:19 Dose: 75 mls/hr Documented By: Infusion: 04/24/24 21:11 Dose: Infused Documented By: Infusion: 04/24/24 20:30 Dose: 75 mls/hr Documented By: Infusion: 04/24/24 19:35 Dose: 50 mls/hr Documented By: Admin: 04/24/24 19:33 Dose: 100 mls/hr Documented By: Lorazepam (Lorazepam 2 Mg/Ml Inj) 2 mg IV NOW ONE Stop: 04/24/24 15:07 Last Admin: 04/24/24 15:14 Dose: 2 mg Documented By: BLU Lorazepam (Lorazepam 2 Mg/Ml Inj) 1 mg IV NOW ONE Stop: 04/24/24 17:56 Last Admin: 04/24/24 17:58 Dose: 1 mg Documented By: STEVENSON Ondansetron HCl (Ondansetron 4 Mg/2 Ml Inj) 4 mg IV NOW ONE Stop: 04/24/24 17:41 Last Admin: 04/24/24 17:59 Dose: 4 mg Documented By: STEVENSON Potassium Chloride (Potassium Chloride 20 Meq/15 Ml Udc) 20 meq PO NOW ONE Stop: 04/25/24 00:01 Last Admin: 04/25/24 00:18 Dose: 20 meq Documented By: Vital Signs Vital signs: Vital Signs - 8 hr 04/24/24 20:50 04/24/24 20:50 04/24/24 21:00 Pulse Rate 71 Respiratory Rate 20 Blood Pressure 122/73 128/74 Pulse Oximetry 92 Oxygen Delivery Method Oxygen Flow Rate 04/24/24 21:00 04/24/24 21:10 04/24/24 21:10 Pulse Rate 72 71 Respiratory Rate 20 19 Blood Pressure 131/78 Pulse Oximetry 92 93 Oxygen Delivery Method Oxygen Flow Rate 04/24/24 21:20 04/24/24 21:20 04/24/24 21:30 Pulse Rate 72 71 Respiratory Rate 19 19 Blood Pressure 125/78 Pulse Oximetry 92 92 Oxygen Delivery Method Oxygen Flow Rate 04/24/24 21:30 04/24/24 21:40 04/24/24 21:40 Pulse Rate 70 Respiratory Rate 20 Blood Pressure 123/79 115/78 Pulse Oximetry 93 Oxygen Delivery Method Oxygen Flow Rate 04/24/24 21:50 04/24/24 21:50 04/24/24 22:00 Pulse Rate 69 Respiratory Rate 20 Blood Pressure 118/79 121/79 Pulse Oximetry 93 Oxygen Delivery Method Oxygen Flow Rate 04/24/24 22:00 04/24/24 22:10 04/24/24 22:10 Pulse Rate 70 70 Respiratory Rate 20 19 Blood Pressure 119/77 Pulse Oximetry 93 93 Oxygen Delivery Method Nasal Cannula Oxygen Flow Rate 2 04/24/24 22:20 04/24/24 22:20 04/24/24 22:30 Pulse Rate 71 Respiratory Rate 18 Blood Pressure 123/78 117/75 Pulse Oximetry 94 Oxygen Delivery Method Oxygen Flow Rate 04/24/24 22:30 04/24/24 22:40 04/24/24 22:40 Pulse Rate 69 68 Respiratory Rate 19 19 Blood Pressure 114/69 Pulse Oximetry 94 94 Oxygen Delivery Method Oxygen Flow Rate 04/24/24 22:50 04/24/24 22:50 04/24/24 23:00 Pulse Rate 69 77 Respiratory Rate 18 22 Blood Pressure 118/73 Pulse Oximetry 95 94 Oxygen Delivery Method Oxygen Flow Rate 04/24/24 23:01 04/24/24 23:01 04/24/24 23:10 Pulse Rate 77 Respiratory Rate 19 Blood Pressure 123/66 106/66 Pulse Oximetry 94 Oxygen Delivery Method Oxygen Flow Rate 04/24/24 23:10 04/24/24 23:20 04/24/24 23:20 Pulse Rate 67 70 Respiratory Rate 17 18 Blood Pressure 113/71 Pulse Oximetry 94 95 Oxygen Delivery Method Oxygen Flow Rate 04/24/24 23:30 04/24/24 23:30 04/24/24 23:40 Pulse Rate 66 Respiratory Rate 16 Blood Pressure 110/68 109/65 Pulse Oximetry 95 Oxygen Delivery Method Oxygen Flow Rate 04/24/24 23:40 04/24/24 23:50 04/24/24 23:50 Pulse Rate 66 68 Respiratory Rate 16 17 Blood Pressure 117/71 Pulse Oximetry 95 95 Oxygen Delivery Method Oxygen Flow Rate 04/25/24 00:00 04/25/24 00:00 Pulse Rate 80 Respiratory Rate 18 Blood Pressure 118/71 Pulse Oximetry 92 Oxygen Delivery Method Room Air Oxygen Flow Rate Medical Decision Making <Andry North, - Last Filed: 04/29/24 17:57> Lab Data 04/24/24 15:30 04/24/24 15:30 Labs: Lab Results 04/24/24 Range/Units 15:30 WBC 10.0 (4.5-11.0) X10^3/uL RBC 4.64 (4.0-5.2) X10^6/uL Hgb 13.0 (12.0-16.0) g/dL Hct 38.6 (36-46) % MCV 83.2 (80-100) fL MCH 28.0 (26-34) PG MCHC 33.6 (30-36) % RDW 14.1 (11.6-14.8) % Plt Count 298 (150-400) X10^3/uL Neut % (Auto) 64.1 (50-75) % Lymph % (Auto) 30.0 (25-40) % [place] % (Auto) 4.4 (3-14) % Eos % (Auto) 1.2 L (2-4) % Baso % (Auto) 0.3 (0-2) % Neut # (Auto) 6400 (3491-4839) /uL Lymph # (Auto) 3000 (1247-4084) /uL [place] # (Auto) 400 (0-900) /uL Eos # (Auto) 100 (0-450) /uL Baso # (Auto) 0 (0-100) /uL Sodium 141 (137-145) mmol/L Potassium 3.3 L (3.4-5.1) mmol/L Chloride 108 H (98-107) mmol/L Carbon Dioxide 24 (22-32) mmol/L BUN 19 H (7-17) mg/dL Creatinine 1.03 (0.52-1.04) mg/dL Estimated GFR > 60 (>60) mL/min BUN/Creatinine Ratio 18.4 (6-22) Glucose 128 H (70-100) mg/dL Calcium 9.4 (8.4-10.2) mg/dL [facility] Narrative Medical decision making narrative: Patient is well-known to the department and I have seen the patient in the past. Initially was given 2 mg of Ativan and steroids which has helped her symptoms in the past. After given this medication she stated that she felt like her symptoms are improving. However then she had an episode of nausea. Clinically she was improving as well. She then stated that she seemed to be plateauing not improving all that much. He was better than when she came into the ER but the progression seem to slow down. She was then started on a Precedex drip. This has helped in the past. She then had an episode where she felt like she needed to throw up and had a lot of secretions in the back of her throat. This caused her to begin to have stridor once again. More Ativan was administered. She was never hypoxic during this time. Patient had deep suctioning done which she felt like potentially helped her symptoms somewhat. He will continue with the Precedex. Care turned over to Dr. Blackwell to continue to monitor and disposition. <Leif Blackwell MD - Last Filed: 04/25/24 04:48> Lab Data Lab results reviewed: Yes I reviewed the patient's lab results. Labs: Lab Results 04/24/24 Range/Units 15:30 WBC 10.0 (4.5-11.0) X10^3/uL RBC 4.64 (4.0-5.2) X10^6/uL Hgb 13.0 (12.0-16.0) g/dL Hct 38.6 (36-46) % MCV 83.2 (80-100) fL MCH 28.0 (26-34) PG MCHC 33.6 (30-36) % RDW 14.1 (11.6-14.8) % Plt Count 298 (150-400) X10^3/uL Neut % (Auto) 64.1 (50-75) % Lymph % (Auto) 30.0 (25-40) % [place] % (Auto) 4.4 (3-14) % Eos % (Auto) 1.2 L (2-4) % Baso % (Auto) 0.3 (0-2) % Neut # (Auto) 6400 (2064-7156) /uL Lymph # (Auto) 3000 (4661-3783) /uL [place] # (Auto) 400 (0-900) /uL Eos # (Auto) 100 (0-450) /uL Baso # (Auto) 0 (0-100) /uL Sodium 141 (137-145) mmol/L Potassium 3.3 L (3.4-5.1) mmol/L Chloride 108 H (98-107) mmol/L Carbon Dioxide 24 (22-32) mmol/L BUN 19 H (7-17) mg/dL Creatinine 1.03 (0.52-1.04) mg/dL Estimated GFR > 60 (>60) mL/min BUN/Creatinine Ratio 18.4 (6-22) Glucose 128 H (70-100) mg/dL Calcium 9.4 (8.4-10.2) mg/dL MDM Narrative Medical decision making narrative: Patient is well-known to the department and I have seen the patient in the past. Initially was given 2 mg of Ativan and steroids which has helped her symptoms in the past. After given this medication she stated that she felt like her symptoms are improving. However then she had an episode of nausea. Clinically she was improving as well. She then stated that she seemed to be plateauing not improving all that much. He was better than when she came into the ER but the progression seem to slow down. She was then started on a Precedex drip. This has helped in the past. She then had an episode where she felt like she needed to throw up and had a lot of secretions in the back of her throat. This caused her to begin to have stridor once again. More Ativan was administered. She was never hypoxic during this time. Patient had deep suctioning done which she felt like potentially helped her symptoms somewhat. He will continue with the Precedex. Care turned over to Dr. Blackwell to continue to monitor and disposition. Rishi, 04/24/2024, 1800h, sign-out from Dr. North. Patient known to me from previous episodes stridor, vocal cord dysfunction, thus far with this episode she has received 3 mg total Ativan, IV Decadron, seemed to have difficulty with some emesis that was responsive to suctioning, no loss of airway, no hypoxia, improving on Precedex infusion as in prior presentations. In the past she has had worsening with inhaled epinephrine, we will avoid for now. Patient seen and examined by me, requesting dexamethasone, as this has been helpful in the past, ordered. Further observe, attempt later wean from Precedex. Pt/family in agreement with plan. Assumed interim care. 2129, sleeping, improved, will start slow weaning of Precedex 2229, further weaning Precedex 0, further improved, weaned off oxygen, does not usually use oxygen at home, oral liquid potassium given, IV potassium given prior for low level 3.3. In the past she has not necessarily been discharged on further steroids. She is awaiting next Botox shot with [facility]brecht otolaryngology in May, it was helpful on previous shot. Patient requesting discharge, family in the room concurred, discharged home per request, much improved. Critical Care Time <Leif Blackwell MD - Last Filed: 04/25/24 04:48> Critical Care Time Critical Care Time: Yes Total Critical Care Time: 31 Attestation: The high probability of a clinically significant, sudden or life threatening deterioration of the [craniofacial, otolaryngologic, cardiopulmonary] system(s) required my full and direct attention, intervention and personal management. The aggregate critical care time was [31] minutes. This time is in addition to time spent performing reported procedures but includes the following: [x] Data Review and interpretation [x] Patient assessment and monitoring of vital signs [x] Documentation [x] Medication orders and management Discharge Plan Departure Patient Disposition: Home Clinical Impression: Vocal cord dysfunction, Hypokalemia Activity Restrictions/Additional Instructions: Recurrent vocal cord dysfunction, some improvement after last Botox injection by ENT specialist at [facility] in [place]. Response tonight to IV Ativan doses, also IV Precedex which was weaned off, IV steroid Decadron given, significantly improved. Discharged home with family. Low potassium noted, IV and oral potassium given. Consider recheck potassium in follow up as an outpatient. Follow up with your ENT specialists as planned. Return earlier to this/nearest emergency department for any change worsening symptoms or any concerns prior Prescriptions: No Action epinephrine 0.3 mg/0.3 mL auto-injector 0.3 mg IM Q5-15M PRN (Reason: VCD) Qty: 2 0RF Rx Instructions: do not exceed 3 doses per episode epinephrine 0.3 mg/0.3 mL auto-injector 0.3 mg IM Q5-15M PRN (Reason: anaphylaxis) Qty: 2 0RF Rx Instructions: do not exceed 3 doses per episode amlodipine 2.5 mg tablet 2.5 mg PO DAILY ipratropium bromide 21 mcg (0.03 %) spray,non-aerosol 2 spray intranasal BID Rx Instructions: administer into each nostril fluticasone propion-salmeterol [Wixela Inhub] 250-50 mcg/dose blister with device 1 inh inhalation DAILY albuterol sulfate 90 mcg/actuation HFA aerosol inhaler 2 puff inhalation Q4-6H ondansetron 4 mg tablet,disintegrating 4 mg PO Q8H cetirizine 10 mg tablet 20 mg PO BID Qty: 120 5RF Rx Instructions: Start taking 1 tablet daily for 7 days then 1 tablet twice a day for 7 days then 2 tablets twice a day indefinitely Referrals: Gabriele Varner ARNP [Primary Care Provider] - Stand Alone Forms: Patient Portal/API
[2024-04-24 15:40] LABS: Add Manual Diff / Slide Review NO; Basophils Absolute Auto 0 /uL (0-100); Basophils Percent Auto 0.3 % (0-2); Eosinophils Absolute Auto 100 /uL (0-450); Eosinophils Percent Auto 1.2 % (2-4); Hematocrit 38.6 % (36-46); Lymphocytes Absolute Auto 3000 /uL (1100-4500); Mean Corpuscular HGB Conc 33.6 % (30-36); Mean Corpuscular Volume 83.2 fL (80-100); Monocytes Absolute Auto 400 /uL (0-900); Monocytes Percent Auto 4.4 % (3-14); Neutrophils Absolute Auto 6400 /uL (1500-7000); Neutrophils Percent Auto 64.1 % (50-75); Platelet Count 298 X10^3/uL (150-400); Red Blood Cell Count 4.64 X10^6/uL (4.0-5.2); Red Cell Distribution Width 14.1 % (11.6-14.8)
[2024-04-24 15:50] LABS: BUN Creatinine Ratio 18.4 (6-22); Blood Urea Nitrogen 19 mg/dL (7-17); Calcium 9.4 mg/dL (8.4-10.2); Carbon Dioxide 24 mmol/L (22-32); Chloride 108 mmol/L (98-107); Estimated Glomerular Filt Rate > 60 mL/min (>60); Glucose 128 mg/dL (70-100); HEMOLYSIS < 15 (0-50); Potassium 3.3 mmol/L (3.4-5.1); Sodium 141 mmol/L (137-145)
[2024-04-24] MEDS: dexmedeTOMIDine in 0.9 % NaCL 400 MCG/100 ML PLAST..BAG 5.443 MCG IV (17:21)
[2024-04-24] MEDS: LORazepam 2 MG/ML INJ 1 MG IV (17:58)
[2024-04-24] MEDS: ONDANSETRON 4 MG/2 ML INJ IV (17:59)
--- NOTE | 2024-04-24 18:00 | PC.NURSE ---
Pt calling out for Respiratory distress. Pt stated to her family that she cannot breathe and feels that she is going to vomiting. Pt did present w active nausea and vomiting. Pt had also resumed stridorous respirations. EMD and multiple RNs to bedside. Pt O2 saturation staying in the mid to high 90s for the duration of the event. Pt was given 4mg of zofran and 1mg of ativan as well as supplemental O2. Respiratory to bedside to assist. RT performed deep suction that yielded positive results. Pt immediately stated that she felt better.
[2024-04-24] MEDS: POTASSIUM CHLORIDE IN WATER 10 MEQ/100 ML PIGGYBACK 100 MEQ IV (19:33)
[2024-04-24] MEDS: POTASSIUM CHLORIDE IN WATER 10 MEQ/100 ML PIGGYBACK 75 MEQ IV (21:19)
--- NOTE | 2024-04-24 22:06 | PC.NURSE ---
Pt able to utilize bedside suction independently.
[2024-04-25] VITALS: BP 118/71; PULSE 80; RESP 18; O2SAT 92
[2024-04-25] MEDS: POTASSIUM CHLORIDE 20 MEQ/15 ML UDC PO (00:18)
== END 2024-04-25 00:24 | disposition home or self-care (01) ==
PROVIDERS: Emergency Medicine; Emergency Provider Emergency Medicine; Family Provider Nurse Practitioner Family; PCP Nurse Practitioner Family
DX: J38.3 Other diseases of vocal cords (principal); E87.6 Hypokalemia
CPT/HCPCS: 36415; 80048; 85025; 96365; 96366; 96368; 96375; 96376; 99284; J1100; J2060; J2405

== ENCOUNTER 2024-04-27 10:37 | Emergency (ER) | payer OTHER, SELFPAY ==
[2024-04-27] VITALS (10 sets, daily range): BP systolic 122–147; BP diastolic 73–89; PULSE 79–130; RESP 12–40; TEMP 36.5–37.5; O2SAT 93–97
--- NOTE | 2024-04-27 10:47 | ED.GENADULT ---
HPI - General Adult General Chief complaint: Shortness of Breath/Dyspnea Stated complaint: vocal cord disfuntion per pt Time Seen by Provider: 04/27/24 10:45 History of Present Illness HPI narrative: 48-year-old female with history of paroxysmal vocal cord dysfunction presents for stridor and difficulty breathing. Patient mostly obtained with help of significant other at bedside as patient was having trouble breathing and is coughing. Patient began to have a dry cough and feel her vocal cords constricting. She administered an EpiPen and presented to the ER. Patient has been under the care of Dr. Lindquist of ENT in [place] as well as seeing a retail department supervisor at [facility]. She has been receiving Botox injections for her vocal cords, last injection was approximately 1 month ago. Patient was able to nod her head yes when asked if these are similar episodes to previous. Patient usually improves with Ativan, has previously had a Precedex drip. Related Data Home Medications Medication Instructions Recorded Confirmed albuterol sulfate 90 mcg/actuation 2 puff inhalation Q4-6H 12/15/23 12/15/23 aerosol inhaler amlodipine 2.5 mg tablet 2.5 mg PO DAILY 12/15/23 12/15/23 fluticasone 250 mcg-salmeterol 50 1 inh inhalation DAILY 12/15/23 12/15/23 mcg/dose blistr powdr for inhalation (Wixela Inhub) ipratropium bromide 21 mcg (0.03 2 spray intranasal BID 12/15/23 12/15/23 %) nasal spray ondansetron 4 mg disintegrating 4 mg PO Q8H 12/15/23 12/15/23 tablet Previous Rx's Medication Instructions Recorded cetirizine 10 mg tablet 20 mg (2 x 10 mg) PO BID #120 tabs 12/15/23 epinephrine 0.3 mg/0.3 mL 0.3 mg (0.3 mL) IM Q5-15M PRN 02/21/24 injection, auto-injector anaphylaxis #2 ea epinephrine 0.3 mg/0.3 mL 0.3 mg (0.3 mL) IM Q5-15M PRN VCD 03/09/24 injection, auto-injector #2 ea Allergies Allergy/AdvReac Type Severity Reaction Status Date / Time codeine Allergy Unknown VOMITING, Verified 04/24/24 15:33 HIVES shellfish derived Allergy Unknown VOMITING Verified 04/24/24 15:33 adhesive AdvReac Unknown HIVES FROM Verified 04/24/24 15:33 TAPE iodine AdvReac Unknown ITCHING, Verified 04/24/24 15:33 HIVES Patient History Medical History Hypothyroid Surgical History H/O shoulder surgery Social History Smoking Status: Never smoker Smoking Status: Never smoker alcohol intake frequency: holidays/special occasions only Substance Use Type: marijuana Exam Initial Vital Signs Initial Vital Signs: Vital Signs Temperature 99.5 F 04/27/24 10:46 Pulse Rate 121 H 04/27/24 10:46 Respiratory Rate 18 04/27/24 10:46 Blood Pressure 147/89 H 04/27/24 10:46 Pulse Oximetry 95 04/27/24 10:46 Oxygen Delivery Method Room Air 04/27/24 10:46 Const: Awake, alert, uncomfortable Cardiac: Tachycardia, regular rhythm RESP: Increased work of breathing, inspiratory stridor Skin: Warm, Dry, intact, no rashes Neuro: AO x3, CN II-XII grossly intact, moves all extremities Course Orders Ordered: Discontinued Medications Droperidol (Droperidol 5 Mg/2 Ml Vial) 5 mg IV NOW ONE Stop: 04/27/24 10:47 Last Admin: 04/27/24 10:51 Dose: 5 mg Documented By: REGINE Midazolam HCl (Midazolam 2 Mg/2 Ml Vial) 2 mg IV NOW ONE Stop: 04/27/24 10:57 Last Admin: 04/27/24 10:59 Dose: 2 mg Documented By: REGINE Medical Decision Making Lab Data 04/27/24 10:50 04/27/24 10:50 Labs: Lab Results 04/27/24 Range/Units 10:50 WBC 11.4 H (4.5-11.0) X10^3/uL RBC 4.72 (4.0-5.2) X10^6/uL Hgb 13.2 (12.0-16.0) g/dL Hct 39.3 (36-46) % MCV 83.3 (80-100) fL MCH 28.1 (26-34) PG MCHC 33.7 (30-36) % RDW 14.6 (11.6-14.8) % Plt Count 382 (150-400) X10^3/uL Neut % (Auto) 62.9 (50-75) % Lymph % (Auto) 30.5 (25-40) % [place] % (Auto) 5.5 (3-14) % Eos % (Auto) 0.8 L (2-4) % Baso % (Auto) 0.3 (0-2) % Neut # (Auto) 7200 H (3955-9048) /uL Lymph # (Auto) 3500 (6786-9568) /uL [place] # (Auto) 600 (0-900) /uL Eos # (Auto) 100 (0-450) /uL Baso # (Auto) 0 (0-100) /uL Sodium 139 (137-145) mmol/L Potassium 3.9 (3.4-5.1) mmol/L Chloride 102 (98-107) mmol/L Carbon Dioxide 27 (22-32) mmol/L BUN 17 (7-17) mg/dL Creatinine 1.15 H (0.52-1.04) mg/dL Estimated GFR 58 L (>60) mL/min BUN/Creatinine Ratio 14.8 (6-22) Glucose 105 H (70-100) mg/dL Calcium 10.0 (8.4-10.2) mg/dL Total Bilirubin 0.6 (0.2-1.3) mg/dL AST 26 (14-36) IU/L ALT 29 (<35) IU/L Alkaline Phosphatase 88 (38-126) U/L Total Protein 8.2 (6.3-8.2) g/dL Albumin 4.7 (3.5-5.0) g/dL Globulin 3.5 (1.7-4.1) g/dL Albumin/Globulin Ratio 1.3 (1.0-2.8) MDM Narrative Medical decision making narrative: Vocal cord constriction similar to previous. Patient does have some stridor, but is saturating well on room air, he was handling secretions. She states that this is similar to previous episodes in the past. IV medications ordered, Respiratory therapy present at bedside for airway assistance if needed. Patient's case discussed with ENT Dr. Lindquist, who states that patient needs to see speech therapy and has a referral pending, but otherwise he defers to the recommendations of the retail department supervisor that she was seeing. He has no additional therapies to recommend in the emergency department setting. Patient received droperidol and Versed with resolution of stridor. Patient was observed for several hours in the emergency department, laboratory work is within normal limits. Patient stated that she felt improved and well enough to go home. She was counseled to call her retail department supervisor at [facility] and follow their recommendations for further Botox administration. Discharge Plan Departure Patient Disposition: Home Clinical Impression: Vocal cord dysfunction Instructions: DI for Laryngitis Activity Restrictions/Additional Instructions: Follow up with your retail department supervisor and speech pathology as scheduled. If your symptoms return please feel free to return to the emergency department for repeat evaluation. Prescriptions: No Action epinephrine 0.3 mg/0.3 mL auto-injector 0.3 mg IM Q5-15M PRN (Reason: VCD) Qty: 2 0RF Rx Instructions: do not exceed 3 doses per episode epinephrine 0.3 mg/0.3 mL auto-injector 0.3 mg IM Q5-15M PRN (Reason: anaphylaxis) Qty: 2 0RF Rx Instructions: do not exceed 3 doses per episode amlodipine 2.5 mg tablet 2.5 mg PO DAILY ipratropium bromide 21 mcg (0.03 %) spray,non-aerosol 2 spray intranasal BID Rx Instructions: administer into each nostril fluticasone propion-salmeterol [Wixela Inhub] 250-50 mcg/dose blister with device 1 inh inhalation DAILY albuterol sulfate 90 mcg/actuation HFA aerosol inhaler 2 puff inhalation Q4-6H ondansetron 4 mg tablet,disintegrating 4 mg PO Q8H cetirizine 10 mg tablet 20 mg PO BID Qty: 120 5RF Rx Instructions: Start taking 1 tablet daily for 7 days then 1 tablet twice a day for 7 days then 2 tablets twice a day indefinitely Referrals: Gabriele Varner ARNP [Primary Care Provider] - Stand Alone Forms: Patient Portal/API
[2024-04-27] MEDS: DROPERIDOL 5 MG/2 ML VIAL IV (10:51)
[2024-04-27] MEDS: MIDAZOLAM 2 MG/2 ML VIAL IV (10:59)
[2024-04-27 11:11] LABS: Add Manual Diff / Slide Review NO; Basophils Absolute Auto 0 /uL (0-100); Basophils Percent Auto 0.3 % (0-2); Eosinophils Absolute Auto 100 /uL (0-450); Eosinophils Percent Auto 0.8 % (2-4); Hematocrit 39.3 % (36-46); Hemoglobin 13.2 g/dL (12.0-16.0); Lymphocytes Absolute Auto 3500 /uL (1100-4500); Lymphocytes Percent Auto 30.5 % (25-40); Mean Corpuscular HGB Conc 33.7 % (30-36); Mean Corpuscular Hemoglobin 28.1 PG (26-34); Mean Corpuscular Volume 83.3 fL (80-100); Monocytes Absolute Auto 600 /uL (0-900); Monocytes Percent Auto 5.5 % (3-14); Neutrophils Absolute Auto 7200 /uL (1500-7000); Neutrophils Percent Auto 62.9 % (50-75); Platelet Count 382 X10^3/uL (150-400); Red Blood Cell Count 4.72 X10^6/uL (4.0-5.2); Red Cell Distribution Width 14.6 % (11.6-14.8); White Blood Cell Count 11.4 X10^3/uL (4.5-11.0)
[2024-04-27 11:28] LABS: Alanine Aminotransferase 29 IU/L (<35); Albumin 4.7 g/dL (3.5-5.0); Albumin Globulin Ratio 1.3 (1.0-2.8); Alkaline Phosphatase 88 U/L (38-126); Aspartate Aminotransferase 26 IU/L (14-36); BUN Creatinine Ratio 14.8 (6-22); Bilirubin Total 0.6 mg/dL (0.2-1.3); Blood Urea Nitrogen 17 mg/dL (7-17); Carbon Dioxide 27 mmol/L (22-32); Chloride 102 mmol/L (98-107); Estimated Glomerular Filt Rate 58 mL/min (>60); Globulin 3.5 g/dL (1.7-4.1); Glucose 105 mg/dL (70-100); HEMOLYSIS 21 (0-50); Potassium 3.9 mmol/L (3.4-5.1); Sodium 139 mmol/L (137-145); Total Protein 8.2 g/dL (6.3-8.2)
--- NOTE | 2024-04-27 12:42 | PC.NURSE ---
Pt resting quietly and comfortably, states she feels much better. RR 16, HR 99, family at the bedside.
== END 2024-04-27 14:00 | disposition home or self-care (01) ==
PROVIDERS: Emergency Provider Emergency Medicine; Family Provider Nurse Practitioner Family; PCP Nurse Practitioner Family
DX: J38.3 Other diseases of vocal cords (principal)
CPT/HCPCS: 36415; 80053; 85025; 96374; 96375; 99284; J1790; J2250

== ENCOUNTER 2024-05-08 11:26 | Emergency (ER) | payer OTHER, SELFPAY ==
[2024-05-08] VITALS (23 sets, daily range): BP systolic 122–207; BP diastolic 82–120; PULSE 81–112; RESP 12–39; TEMP 31–37; O2SAT 96–99
--- NOTE | 2024-05-08 11:44 | ED.GENADULT ---
HPI - General Adult General Chief complaint: Shortness of Breath/Dyspnea Stated complaint: SPASMADIC ATTACK Time Seen by Provider: 05/08/24 11:42 Source: patient and family Mode of arrival: Ambulatory Limitations: no limitations History of Present Illness HPI narrative: 48-year-old female with a history of paroxysmal vocal cord dysfunction presenting with stridor and difficulty breathing. Patient is able to write. She has stridor but similar presentation in his past visits. Patient states this feels similar as well. She was at the local [place] festival and states she has had a very stressful week she feels like it is what triggered this episode. She has a seen Dr. Lindquist with ENT in [place] and follows with laryngology at [facility]. She is received Botox injections in his vocal cords, she is due for 2nd round of Botox in the next week. Patient is able to communicate by writing. She has improved in the past with Ativan and sometimes Precedex. Patient had 1 prior episode where CPAP was used with positive pressure which was helpful as well. Patient notes she also tolerates deep suctioning well. Nebulized treatments have not been helpful and make her feel worse. Related Data Home Medications Medication Instructions Recorded Confirmed albuterol sulfate 90 mcg/actuation 2 puff inhalation Q4-6H 12/15/23 12/15/23 aerosol inhaler amlodipine 2.5 mg tablet 2.5 mg PO DAILY 12/15/23 12/15/23 fluticasone 250 mcg-salmeterol 50 1 inh inhalation DAILY 12/15/23 12/15/23 mcg/dose blistr powdr for inhalation (Wixela Inhub) ipratropium bromide 21 mcg (0.03 2 spray intranasal BID 12/15/23 12/15/23 %) nasal spray ondansetron 4 mg disintegrating 4 mg PO Q8H 12/15/23 12/15/23 tablet Previous Rx's Medication Instructions Recorded cetirizine 10 mg tablet 20 mg (2 x 10 mg) PO BID #120 tabs 12/15/23 epinephrine 0.3 mg/0.3 mL 0.3 mg (0.3 mL) IM Q5-15M PRN 02/21/24 injection, auto-injector anaphylaxis #2 ea epinephrine 0.3 mg/0.3 mL 0.3 mg (0.3 mL) IM Q5-15M PRN VCD 03/09/24 injection, auto-injector #2 ea Allergies Allergy/AdvReac Type Severity Reaction Status Date / Time codeine Allergy Unknown VOMITING, Verified 04/24/24 15:33 HIVES shellfish derived Allergy Unknown VOMITING Verified 04/24/24 15:33 adhesive AdvReac Unknown HIVES FROM Verified 04/24/24 15:33 TAPE iodine AdvReac Unknown ITCHING, Verified 04/24/24 15:33 HIVES Review of Systems Review of Systems ROS Unobtainable: All systems reviewed & are unremarkable except as noted in HPI and below Patient History Medical History Hypothyroid Surgical History H/O shoulder surgery Social History Smoking Status: Never smoker Smoking Status: Never smoker alcohol intake frequency: holidays/special occasions only Substance Use Type: marijuana Exam Narrative Exam Narrative: GEN: well nourished, well appearing female, alert and oriented x 3, patient appears to be in moderate distress. HEENT: Atraumatic, pupils are equal round reactive to light, extraocular movements are intact, nares are clear, there is no conjunctival pallor. Throat is clear without any exudates, erythema, tonsillar enlargement or uvular deviation, patient has stridor no difficulty swallowing secretions. HEART: Regular rate and rhythm without murmur, clicks, rubs. LUNGS:Lungs clear to auscultation, no wheezes, rales, crackles, chest moves ventricularly, no tachypnea accessory muscle use. ABD:bowel sounds normal, soft, non-tender, no guarding, rebound, rigidity, no masses noted, no hepatosplenomegaly :No CVA tenderness MSCL: Non-tender, no muscle atrophy, muscles strength 5/5 upper and lower extremities, full range of motion, normal gait NEURO:CN 2-12 intact, sensation normal SKIN: Rash, erythema or other skin changes Initial Vital Signs Initial Vital Signs: Vital Signs Pulse Rate 108 H 05/08/24 11:32 Blood Pressure 145/112 H 05/08/24 11:32 Pulse Oximetry 99 05/08/24 11:32 Course Orders Ordered: Discontinued Medications Dexamethasone 20 mg/ Sodium (Chloride) 55 mls @ 220 mls/hr IV NOW ONE Stop: 05/08/24 11:52 Last Infusion: 05/08/24 13:10 Dose: Infused Documented By: Admin: 05/08/24 12:04 Dose: 220 mls/hr Documented By: URBAN(2) Sodium Chloride (Normal Saline 0.9%) 1,000 mls @ 1,000 mls/hr IV BOLUS ONE Stop: 05/08/24 12:50 Last Infusion: 05/08/24 13:10 Dose: Infused Documented By: Admin: 05/08/24 11:58 Dose: 1,000 mls/hr Documented By: URBAN(2) Lorazepam (Lorazepam 2 Mg/Ml Inj) 1 mg IV NOW ONE Stop: 05/08/24 11:52 Last Admin: 05/08/24 11:59 Dose: 1 mg Documented By: URBAN(2) Lorazepam (Lorazepam 2 Mg/Ml Inj) 1 mg IV NOW ONE Stop: 05/08/24 14:09 Last Admin: 05/08/24 14:10 Dose: 1 mg Documented By: URBAN(2) Vital Signs Vital signs: Vital Signs - 8 hr 05/08/24 11:32 05/08/24 11:32 05/08/24 11:34 Temperature 98.6 F Pulse Rate 108 H 112 H Respiratory Rate 32 H Blood Pressure 145/112 H 145/112 H Pulse Oximetry 99 99 Oxygen Delivery Method Room Air Fraction of Inspired Oxygen 05/08/24 11:54 05/08/24 12:00 05/08/24 12:01 Temperature Pulse Rate 107 H 99 H 99 H Respiratory Rate 18 39 H 29 H Blood Pressure Pulse Oximetry 96 97 97 Oxygen Delivery Method Room Air Fraction of Inspired Oxygen 05/08/24 12:01 05/08/24 12:30 05/08/24 12:31 Temperature Pulse Rate 83 83 Respiratory Rate 21 28 H Blood Pressure 151/85 H Pulse Oximetry 97 97 Oxygen Delivery Method Fraction of Inspired Oxygen 05/08/24 12:31 05/08/24 13:00 05/08/24 13:01 Temperature Pulse Rate 86 86 Respiratory Rate 19 23 Blood Pressure 122/82 Pulse Oximetry 98 98 Oxygen Delivery Method Fraction of Inspired Oxygen 05/08/24 13:01 05/08/24 13:21 05/08/24 13:30 Temperature Pulse Rate 81 Respiratory Rate 17 Blood Pressure 129/88 Pulse Oximetry 97 Oxygen Delivery Method Fraction of Inspired Oxygen 21 05/08/24 13:31 05/08/24 13:31 05/08/24 14:00 Temperature Pulse Rate 83 81 Respiratory Rate 19 27 H Blood Pressure 128/103 H Pulse Oximetry 97 98 Oxygen Delivery Method Fraction of Inspired Oxygen 05/08/24 14:00 05/08/24 14:34 05/08/24 14:36 Temperature Pulse Rate 95 H Respiratory Rate 12 Blood Pressure 138/90 Pulse Oximetry 97 97 Oxygen Delivery Method Fraction of Inspired Oxygen 05/08/24 14:36 05/08/24 15:00 05/08/24 15:00 Temperature Pulse Rate 83 Respiratory Rate 25 H Blood Pressure 168/89 H 149/94 H Pulse Oximetry 97 Oxygen Delivery Method Fraction of Inspired Oxygen Medical Decision Making Lab Data 05/08/24 11:50 05/08/24 11:50 Labs: Lab Results 05/08/24 Range/Units 11:50 WBC 11.9 H (4.5-11.0) X10^3/uL RBC 4.82 (4.0-5.2) X10^6/uL Hgb 13.6 (12.0-16.0) g/dL Hct 40.2 (36-46) % MCV 83.4 (80-100) fL MCH 28.2 (26-34) PG MCHC 33.8 (30-36) % RDW 14.3 (11.6-14.8) % Plt Count 340 (150-400) X10^3/uL Neut % (Auto) 70.3 (50-75) % Lymph % (Auto) 23.9 L (25-40) % [place] % (Auto) 4.1 (3-14) % Eos % (Auto) 1.2 L (2-4) % Baso % (Auto) 0.5 (0-2) % Neut # (Auto) 8400 H (1298-8004) /uL Lymph # (Auto) 2800 (0608-6905) /uL [place] # (Auto) 500 (0-900) /uL Eos # (Auto) 100 (0-450) /uL Baso # (Auto) 100 (0-100) /uL Sodium 141 (137-145) mmol/L Potassium 4.3 (3.4-5.1) mmol/L Chloride 106 (98-107) mmol/L Carbon Dioxide 24 (22-32) mmol/L BUN 19 H (7-17) mg/dL Creatinine 1.03 (0.52-1.04) mg/dL Estimated GFR > 60 (>60) mL/min BUN/Creatinine Ratio 18.4 (6-22) Glucose 113 H (70-100) mg/dL Calcium 10.0 (8.4-10.2) mg/dL Total Bilirubin 0.6 (0.2-1.3) mg/dL AST 26 (14-36) IU/L ALT 27 (<35) IU/L Alkaline Phosphatase 103 (38-126) U/L Total Protein 8.3 H (6.3-8.2) g/dL Albumin 4.8 (3.5-5.0) g/dL Globulin 3.5 (1.7-4.1) g/dL Albumin/Globulin Ratio 1.4 (1.0-2.8) MDM Narrative Medical decision making narrative: [age] old female with a audible stridor who has had history of paroxysmal vocal cord dysfunction, patient is following with ENT has had Botox injections in the past 6 weeks she is due for another round in the next 1-2 weeks. States she was outside the local are fast and has had a stressful week which may have triggered this episode. She has not responded well to inhaled treatments in the past. She has had responded well to steroids and Ativan and sometimes Precedex drips and even CPAP. Labs reviewed white count of 11.9 otherwise normal hemoglobin and platelets, electrolytes are appropriate overall BUN 19 creatinine is 1.03 consistent with priors total protein is 8.3. Patient received Ativan and steroids, deep suctioning which she states has been helpful in the past. On re-evaluation 1247 patient has improvement but still stridorous. Discussed with patient about trying CPAP to use positive pressure to break her spasm we had used that 2 or 3 visits before and was successful without requiring Precedex drip. Patient is agreeable to try. Recheck after being on CPAP after 2 hours patient's feels improved, she has been tolerating well. Has been some suctioning in the department. Patient had trial off of CPAP, she is feeling much better has a little bit of cough but taking applesauce would like to return home. Both patient and spouse state she was much improved she is actually able to talk at this time does not have significant stridor and she is requesting to return home. Discharge Plan Departure Patient Disposition: Home Clinical Impression: Vocal cord dysfunction Activity Restrictions/Additional Instructions: I hope you continue to feel improved. Follow up with your specialist and let them know that you were here with the exacerbation. Continue your home medications and interventions. Please return for any new or worsening symptoms. Prescriptions: No Action epinephrine 0.3 mg/0.3 mL auto-injector 0.3 mg IM Q5-15M PRN (Reason: VCD) Qty: 2 0RF Rx Instructions: do not exceed 3 doses per episode epinephrine 0.3 mg/0.3 mL auto-injector 0.3 mg IM Q5-15M PRN (Reason: anaphylaxis) Qty: 2 0RF Rx Instructions: do not exceed 3 doses per episode amlodipine 2.5 mg tablet 2.5 mg PO DAILY ipratropium bromide 21 mcg (0.03 %) spray,non-aerosol 2 spray intranasal BID Rx Instructions: administer into each nostril fluticasone propion-salmeterol [Wixela Inhub] 250-50 mcg/dose blister with device 1 inh inhalation DAILY albuterol sulfate 90 mcg/actuation HFA aerosol inhaler 2 puff inhalation Q4-6H ondansetron 4 mg tablet,disintegrating 4 mg PO Q8H cetirizine 10 mg tablet 20 mg PO BID Qty: 120 5RF Rx Instructions: Start taking 1 tablet daily for 7 days then 1 tablet twice a day for 7 days then 2 tablets twice a day indefinitely Referrals: Gabriele Varner ARNP [Primary Care Provider] - Stand Alone Forms: Patient Portal/API
[2024-05-08 11:57] LABS: Add Manual Diff / Slide Review NO; Basophils Absolute Auto 100 /uL (0-100); Basophils Percent Auto 0.5 % (0-2); Eosinophils Absolute Auto 100 /uL (0-450); Eosinophils Percent Auto 1.2 % (2-4); Hematocrit 40.2 % (36-46); Hemoglobin 13.6 g/dL (12.0-16.0); Lymphocytes Absolute Auto 2800 /uL (1100-4500); Lymphocytes Percent Auto 23.9 % (25-40); Mean Corpuscular HGB Conc 33.8 % (30-36); Mean Corpuscular Hemoglobin 28.2 PG (26-34); Mean Corpuscular Volume 83.4 fL (80-100); Monocytes Absolute Auto 500 /uL (0-900); Monocytes Percent Auto 4.1 % (3-14); Neutrophils Absolute Auto 8400 /uL (1500-7000); Neutrophils Percent Auto 70.3 % (50-75); Platelet Count 340 X10^3/uL (150-400); Red Blood Cell Count 4.82 X10^6/uL (4.0-5.2); Red Cell Distribution Width 14.3 % (11.6-14.8); White Blood Cell Count 11.9 X10^3/uL (4.5-11.0)
[2024-05-08] MEDS: SODIUM CHLORIDE 0.9% 1,000 ML 1000 ML IV (11:58)
[2024-05-08] MEDS: LORazepam 2 MG/ML INJ 1 MG IV ×2 (11:59→14:10)
[2024-05-08] MEDS: dexAMETHasone 20 MG in SODIUM CHLORIDE 0.9% 50 ML 220 MG IV (12:04)
[2024-05-08 12:15] LABS: Alanine Aminotransferase 27 IU/L (<35); Albumin 4.8 g/dL (3.5-5.0); Albumin Globulin Ratio 1.4 (1.0-2.8); Alkaline Phosphatase 103 U/L (38-126); Aspartate Aminotransferase 26 IU/L (14-36); BUN Creatinine Ratio 18.4 (6-22); Bilirubin Total 0.6 mg/dL (0.2-1.3); Blood Urea Nitrogen 19 mg/dL (7-17); Carbon Dioxide 24 mmol/L (22-32); Chloride 106 mmol/L (98-107); Estimated Glomerular Filt Rate > 60 mL/min (>60); Globulin 3.5 g/dL (1.7-4.1); Glucose 113 mg/dL (70-100); HEMOLYSIS 15 (0-50); Potassium 4.3 mmol/L (3.4-5.1); Sodium 141 mmol/L (137-145); Total Protein 8.3 g/dL (6.3-8.2)
== END 2024-05-08 16:39 | disposition home or self-care (01) ==
PROVIDERS: Emergency Provider Emergency Medicine; Family Provider Nurse Practitioner Family; PCP Nurse Practitioner Family
DX: J38.3 Other diseases of vocal cords (principal)
CPT/HCPCS: 80053; 85025; 94660; 94799; 96365; 96375; 96376; 99283; 99284; J1100; J2060

== ENCOUNTER 2024-07-24 20:14 | Emergency (ER) | payer OTHER, SELFPAY ==
[2024-07-24] VITALS (13 sets, daily range): BP systolic 99–222; BP diastolic 54–97; PULSE 80–115; RESP 18; TEMP 36.1; O2SAT 92–98; BMI 40.7
--- NOTE | 2024-07-24 20:31 | ED.GENADULT ---
HPI - General Adult General Chief complaint: Shortness of Breath/Dyspnea Stated complaint: VCD attack Time Seen by Provider: 07/24/24 20:23 Source: patient and family Mode of arrival: Ambulatory History of Present Illness HPI narrative: 49-year-old female with history of vocal cord dysfunction, seen by me and many other providers here in the past, has in the past responded to Decadron, not particularly any response to Vaponefrin, in the past has received benzodiazepines with therapeutic effect, sometimes she has required IV Precedex infusion. She apparently has been awaiting otolaryngology follow up. She presents in respiratory distress onset this evening. Related Data Home Medications Medication Instructions Recorded Confirmed albuterol sulfate 90 mcg/actuation 2 puff inhalation Q4-6H 12/15/23 12/15/23 aerosol inhaler amlodipine 2.5 mg tablet 2.5 mg PO DAILY 12/15/23 12/15/23 fluticasone 250 mcg-salmeterol 50 1 inh inhalation DAILY 12/15/23 12/15/23 mcg/dose blistr powdr for inhalation (Wixela Inhub) ipratropium bromide 21 mcg (0.03 2 spray intranasal BID 12/15/23 12/15/23 %) nasal spray ondansetron 4 mg disintegrating 4 mg PO Q8H 12/15/23 12/15/23 tablet Previous Rx's Medication Instructions Recorded cetirizine 10 mg tablet 20 mg (2 x 10 mg) PO BID #120 tabs 12/15/23 epinephrine 0.3 mg/0.3 mL 0.3 mg (0.3 mL) IM Q5-15M PRN 02/21/24 injection, auto-injector anaphylaxis #2 ea epinephrine 0.3 mg/0.3 mL 0.3 mg (0.3 mL) IM Q5-15M PRN VCD 03/09/24 injection, auto-injector #2 ea prednisone 20 mg tablet 40 mg (2 x 20 mg) PO DAILY 5 days 07/25/24 #10 tabs Allergies Allergy/AdvReac Type Severity Reaction Status Date / Time codeine Allergy Unknown VOMITING, Verified 07/24/24 20:22 HIVES shellfish derived Allergy Unknown VOMITING Verified 07/24/24 20:22 adhesive AdvReac Unknown HIVES FROM Verified 07/24/24 20:22 TAPE iodine AdvReac Unknown ITCHING, Verified 07/24/24 20:22 HIVES Review of Systems Review of Systems Narrative: see HPI Patient History Medical History Hypothyroid Surgical History H/O shoulder surgery Social History Smoking Status: Never smoker Smoking Status: Never smoker alcohol intake frequency: holidays/special occasions only Substance Use Type: marijuana Exam Narrative Exam Narrative: GENERAL: Well-developed patient, in in moderate distress, with stridorous sounding breath sounds as per prior presentations HEAD: Atraumatic. Normocephalic. EYES: Pupils equal round and reactive. Extraocular motions intact. No scleral icterus. No injection or drainage. ENT: Nose without bleeding, purulent drainage. Throat without erythema, tonsillar hypertrophy or exudate. Airway patent. NECK: Trachea midline. Non tender CARDIOVASCULAR: Regular rate and rhythm without murmurs, gallops, or rubs. RESPIRATORY: Clear to auscultation. Breath sounds equal bilaterally. No wheezes, rales, or rhonchi. Frequent coughing. Stridorous inspiration. Similar to previous presentations. GASTROINTESTINAL: Abdomen soft, non-tender, nondistended. EXTREMITIES: No edema or joint tenderness. BACK: Nontender without deformity or crepitance. No flank tenderness. NEURO: AOx3. Motor functions grossly nonfocal, limited by her apparent initial respiratory distress SKIN: No rash or erythema of visible areas Initial Vital Signs Initial Vital Signs: Vital Signs Pulse Rate 100 H 07/24/24 20:20 Course Orders Ordered: ED Orders 07/24/24 20:34 XR chest 1V Stat EKG-12 Lead Stat 07/24/24 20:53 Complete Blood Count AUTO DIFF Stat Comprehensive Metabolic Panel Stat Lipase Stat Troponin & CK Cardiac Panel Stat Discontinued Medications Dexamethasone (Dexamethasone 10 Mg/Ml Vial) 10 mg IV NOW ONE Stop: 07/24/24 20:24 Last Admin: 07/24/24 20:33 Dose: 10 mg Documented By: ODALIS dexmedeTOMIDine in 0.9 % NaCL (Precedex) 400 mcg in 100 mls @ 5.216 mls/hr IV TITRATE HORTENCIA; Protocol Last Titration: 07/25/24 00:07 Dose: 0.1 mcg/kg/hr, 2.608 mls/hr Documented By: Admin: 07/24/24 20:51 Dose: 0.2 mcg/kg/hr, 5.216 mls/hr Documented By: Lorazepam (Lorazepam 2 Mg/Ml Inj) 2 mg IV NOW ONE Stop: 07/24/24 20:24 Last Admin: 07/24/24 20:33 Dose: 2 mg Documented By: ODALIS Ondansetron HCl (Ondansetron 4 Mg/2 Ml Inj) 4 mg IV NOW ONE Stop: 07/24/24 20:50 Last Admin: 07/24/24 21:00 Dose: 4 mg Documented By: Vital Signs Vital signs: Vital Signs - 8 hr 07/24/24 20:20 07/24/24 20:22 07/24/24 20:30 Temperature 97 F L Pulse Rate 100 H 110 H 99 H Respiratory Rate 18 Blood Pressure 222/97 H Pulse Oximetry 97 98 Oxygen Delivery Method Room Air 07/24/24 20:31 07/24/24 20:31 07/24/24 21:00 Temperature Pulse Rate 99 H 115 H Respiratory Rate Blood Pressure 99/54 L Pulse Oximetry 97 92 Oxygen Delivery Method 07/24/24 21:16 07/24/24 21:16 07/24/24 21:30 Temperature Pulse Rate 96 H Respiratory Rate Blood Pressure 115/68 118/68 Pulse Oximetry 96 Oxygen Delivery Method 07/24/24 21:30 07/24/24 22:00 07/24/24 22:00 Temperature Pulse Rate 89 85 Respiratory Rate Blood Pressure 118/74 Pulse Oximetry 97 96 Oxygen Delivery Method 07/24/24 22:30 07/24/24 22:31 07/24/24 22:31 Temperature Pulse Rate 82 82 Respiratory Rate Blood Pressure 140/74 Pulse Oximetry 96 95 Oxygen Delivery Method 07/24/24 23:00 07/24/24 23:01 07/24/24 23:01 Temperature Pulse Rate 85 86 Respiratory Rate Blood Pressure 116/76 Pulse Oximetry 95 96 Oxygen Delivery Method 07/24/24 23:30 07/24/24 23:30 07/25/24 00:00 Temperature Pulse Rate 80 Respiratory Rate Blood Pressure 125/70 120/62 Pulse Oximetry 95 Oxygen Delivery Method 07/25/24 00:00 Temperature Pulse Rate 72 Respiratory Rate Blood Pressure Pulse Oximetry 92 Oxygen Delivery Method Medical Decision Making Lab Data Lab results reviewed: Yes I reviewed the patient's lab results. 07/24/24 20:53 07/24/24 20:53 Labs: Lab Results 07/24/24 Range/Units 20:53 WBC 11.7 H (4.5-11.0) X10^3/uL RBC 4.59 (4.0-5.2) X10^6/uL Hgb 12.9 (12.0-16.0) g/dL Hct 38.1 (36-46) % MCV 83.1 (80-100) fL MCH 28.0 (26-34) PG MCHC 33.7 (30-36) % RDW 14.1 (11.6-14.8) % Plt Count 342 (150-400) X10^3/uL Neut % (Auto) 61.8 (50-75) % Lymph % (Auto) 31.6 (25-40) % Loup % (Auto) 4.6 (3-14) % Eos % (Auto) 1.4 L (2-4) % Baso % (Auto) 0.6 (0-2) % Neut # (Auto) 7300 H (5027-0770) /uL Lymph # (Auto) 3700 (0002-8862) /uL Loup # (Auto) 500 (0-900) /uL Eos # (Auto) 200 (0-450) /uL Baso # (Auto) 100 (0-100) /uL Sodium 139 (137-145) mmol/L Potassium 4.0 (3.4-5.1) mmol/L Chloride 107 (98-107) mmol/L Carbon Dioxide 25 (22-32) mmol/L BUN 20 H (7-17) mg/dL Creatinine 1.00 (0.52-1.04) mg/dL Estimated GFR > 60 (>60) mL/min BUN/Creatinine Ratio 20.0 (6-22) Glucose 111 H (70-100) mg/dL Calcium 9.3 (8.4-10.2) mg/dL Total Bilirubin 0.4 (0.2-1.3) mg/dL AST 24 (14-36) IU/L ALT 23 (<35) IU/L Alkaline Phosphatase 108 (38-126) U/L Total Creatine Kinase 70 (30-135) U/L Troponin I < 0.012 (0.01-0.034) ng/mL Total Protein 7.3 (6.3-8.2) g/dL Albumin 4.4 (3.5-5.0) g/dL Globulin 2.9 (1.7-4.1) g/dL Albumin/Globulin Ratio 1.5 (1.0-2.8) Lipase 147 (23-300) U/L ECG Data Attestation: I personally reviewed and interpreted this ECG as follows: Interpretation: Sinus tachycardia with rate of 100, no obvious ST segment elevation or depression changes. Some movement artifact noted. OK 136, QRS 88, QTC 482. MDM Narrative Medical decision making narrative: 49-year-old female with history of vocal cord dysfunction, numerous prior episodes similar respiratory distress, stridorous component, often responsive to Decadron steroid and benzodiazepine, sometimes has required Precedex infusions, awaiting otolaryngology further follow up. IV Decadron, IV Ativan, if no response will likely add IV Precedex infusion. Little response to Decadron and Ativan dose, add IV Precedex infusion 2200, still coughing and some stridor, decreased 2245, sleeping, maintaining airway, continue infusion for now, attempt weaning in the next 2-3 hours, similar to her previous presentation patterns Weaned off of medication, feels better, home with family. We will give prednisone pulse next few days, she feels that she gets better when she has follow up steroids to take for a few days. 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 Return precautions discussed. Home with family, stable, improved Discharge Plan Departure Patient Disposition: Home Clinical Impression: Vocal cord dysfunction, Intermittent stridor Activity Restrictions/Additional Instructions: Intermittent stridor, exacerbation tonight, no known obvious triggers, awaiting next dose botulinum treatment from otolaryngology specialists at [facility], IV Decadron steroid given that has been helpful in past recurrences/exacerbations. Further steroids take next few days if needed. Breathing treatments such as Vaponefrin/epinephrine have not been helpful in the past, not tried this exacerbation. Ativan was tried, partial response. Precedex infusion helped with symptoms, as in past previous presentations. Weaned off the Precedex. Symptoms improved after steroid dosing, you wanted to go home, home with family. Follow up with your otolaryngology specialists. Return to this/nearest emergency department for any change worsening symptoms or any concerns prior Prescriptions: New prednisone 20 mg tablet 40 mg PO DAILY 5 Days Qty: 10 0RF No Action epinephrine 0.3 mg/0.3 mL auto-injector 0.3 mg IM Q5-15M PRN (Reason: VCD) Qty: 2 0RF Rx Instructions: do not exceed 3 doses per episode epinephrine 0.3 mg/0.3 mL auto-injector 0.3 mg IM Q5-15M PRN (Reason: anaphylaxis) Qty: 2 0RF Rx Instructions: do not exceed 3 doses per episode amlodipine 2.5 mg tablet 2.5 mg PO DAILY ipratropium bromide 21 mcg (0.03 %) spray,non-aerosol 2 spray intranasal BID Rx Instructions: administer into each nostril fluticasone propion-salmeterol [Wixela Inhub] 250-50 mcg/dose blister with device 1 inh inhalation DAILY albuterol sulfate 90 mcg/actuation HFA aerosol inhaler 2 puff inhalation Q4-6H ondansetron 4 mg tablet,disintegrating 4 mg PO Q8H cetirizine 10 mg tablet 20 mg PO BID Qty: 120 5RF Rx Instructions: Start taking 1 tablet daily for 7 days then 1 tablet twice a day for 7 days then 2 tablets twice a day indefinitely Referrals: Gabriele Varner ARNP [Primary Care Provider] - Stand Alone Forms: Patient Portal/API
[2024-07-24] MEDS: LORazepam 2 MG/ML INJ IV (20:33)
[2024-07-24] MEDS: DEXAMETHASONE 10 MG/ML VIAL IV (20:33)
--- NOTE | 2024-07-24 20:34 | DI.RAD.S_ITS ---
PROCEDURE: XR CHEST 1V INDICATIONS: chest pain TECHNIQUE: One view of the chest was acquired. COMPARISON: [facility], , XR CHEST 2V, 07/30/2021, 10:41. (Additional prior imaging is not available for review from the archive at the time of this dictation.) FINDINGS: Surgical changes and devices: None. Lungs and pleura: On this semiupright portable chest examination, no large pneumothorax or large pleural effusions are seen. No focal infiltrates are seen. Low lung volumes are noted. This causes a crowded appearance to the lung markings and limits evaluation. Mediastinum: Mediastinal contours appear normal. Heart size is normal. Bones and chest wall: No suspicious bony lesions. Age-appropriate bony degenerative changes are seen. Overlying soft tissues appear unremarkable. IMPRESSION: Limited portable chest examination, without a significant cardiopulmonary abnormality identified. Dictated by: Kentrell Elaine M.D. on 07/24/2024 at 20:04 Approved by: Kentrell Elaine M.D. on 07/24/2024 at 20:06
[2024-07-24] MEDS: dexmedeTOMIDine in 0.9 % NaCL 400 MCG/100 ML PLAST..BAG 5.216 MCG IV (20:51)
[2024-07-24 20:56] LABS: Add Manual Diff / Slide Review NO; Basophils Absolute Auto 100 /uL (0-100); Basophils Percent Auto 0.6 % (0-2); Eosinophils Absolute Auto 200 /uL (0-450); Eosinophils Percent Auto 1.4 % (2-4); Hematocrit 38.1 % (36-46); Hemoglobin 12.9 g/dL (12.0-16.0); Lymphocytes Absolute Auto 3700 /uL (1100-4500); Lymphocytes Percent Auto 31.6 % (25-40); Mean Corpuscular HGB Conc 33.7 % (30-36); Mean Corpuscular Volume 83.1 fL (80-100); Monocytes Absolute Auto 500 /uL (0-900); Monocytes Percent Auto 4.6 % (3-14); Neutrophils Absolute Auto 7300 /uL (1500-7000); Neutrophils Percent Auto 61.8 % (50-75); Platelet Count 342 X10^3/uL (150-400); Red Blood Cell Count 4.59 X10^6/uL (4.0-5.2); Red Cell Distribution Width 14.1 % (11.6-14.8); White Blood Cell Count 11.7 X10^3/uL (4.5-11.0)
[2024-07-24] MEDS: ONDANSETRON 4 MG/2 ML INJ IV (21:00)
[2024-07-24 21:01] LABS: Alanine Aminotransferase 23 IU/L (<35); Albumin 4.4 g/dL (3.5-5.0); Albumin Globulin Ratio 1.5 (1.0-2.8); Alkaline Phosphatase 108 U/L (38-126); Aspartate Aminotransferase 24 IU/L (14-36); Bilirubin Total 0.4 mg/dL (0.2-1.3); Blood Urea Nitrogen 20 mg/dL (7-17); Calcium 9.3 mg/dL (8.4-10.2); Carbon Dioxide 25 mmol/L (22-32); Chloride 107 mmol/L (98-107); Creatine Kinase 70 U/L (30-135); Estimated Glomerular Filt Rate > 60 mL/min (>60); Globulin 2.9 g/dL (1.7-4.1); Glucose 111 mg/dL (70-100); HEMOLYSIS 28 (0-50); Lipase 147 U/L (23-300); Sodium 139 mmol/L (137-145); Total Protein 7.3 g/dL (6.3-8.2)
[2024-07-24 21:13] LABS: Troponin I < 0.012 ng/mL (0.01-0.034)
--- NOTE | 2024-07-24 21:15 | EKG_ITS ---
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
--- NOTE | 2024-07-24 21:15 | PC.NURSE ---
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 audible wheezes can be heard at bedside but the patient is tolerating the episode well. suction in hand and writing pad in hand to communicate. friend at bedside for translation. patient given medication and symptoms are alleviated at this time. patient had episode of post tusses emesis around 2044. Oxygen dropped from 98% on RA to 94% for a period of 5 seconds then came back up. to 98%
--- NOTE | 2024-07-24 21:20 | PC.NURSE ---
iv placed by another nurse
--- NOTE | 2024-07-24 21:28 | PC.NURSE ---
patient in the room with suction at bedside but has reported feeling much more comfortable but drowsy now
[2024-07-25] VITALS: BP 120/62; PULSE 72; O2SAT 92
== END 2024-07-25 00:26 | disposition home or self-care (01) ==
PROVIDERS: Emergency Provider Emergency Medicine; Family Provider Nurse Practitioner Family; PCP Nurse Practitioner Family
DX: J38.3 Other diseases of vocal cords (principal); R06.1 Stridor; R00.0 Tachycardia, unspecified
CPT/HCPCS: 71045; 80053; 82550; 83690; 84484; 85025; 93005; 96365; 96366; 96375; 99284; J1100; J2060; J2405

== ENCOUNTER 2024-10-16 11:53 | Emergency (ER) | payer OTHER, SELFPAY ==
[2024-10-16 12:13] VITALS: BP 159/86; PULSE 88; RESP 26; TEMP 36.6; O2SAT 99; BMI 41.6
--- NOTE | 2024-10-16 12:40 | DI.RAD.S_ITS ---
PROCEDURE: XR CHEST 2V INDICATIONS: aspiration TECHNIQUE: 2 views of the chest were acquired. COMPARISON: [facility], CR, XR CHEST 1V, 07/24/2024, 20:32. FINDINGS: Surgical changes and devices: A tracheostomy tube is seen in place. Cholecystectomy clips are seen. Lungs and pleura: An incomplete inspiratory result is noted, causing a crowded appearance to the lung markings. No focal infiltrates are seen. No pneumothorax or significant pleural effusions are seen. Mediastinum: Mediastinal contours are normal. Heart size is normal. Bones and chest wall: No suspicious bony abnormalities. Soft tissues appear unremarkable. IMPRESSION: No focal infiltrates are seen. If there is strong clinical concern for developing aspiration pneumonia in this patient, please consider a short term followup examination, as aspiration pneumonia can have a delayed radiographic appearance. Tracheostomy tube seen in place. Dictated by: Kentrell Elaine M.D. on 10/16/2024 at 12:08 Approved by: Kentrell Elaine M.D. on 10/16/2024 at 12:09
[2024-10-16 13:24] VITALS: BP 140/65; PULSE 92; RESP 22; O2SAT 98
--- NOTE | 2024-10-16 13:27 | ED_ITS ---
HPI - SOB/Dyspnea <Andry HindsPIERCE butterfield - Last Filed: 10/16/24 14:02> General Chief Complaint: Shortness of Breath/Dyspnea Stated Complaint: bath water in trach Time Seen by Provider: 10/16/24 13:27 Source: patient Mode of arrival: Ambulatory History of Present Illness HPI Narrative: 49-year-old female, never smoker with a tracheostomy, presents to the emergency department with concerns over aspiration pneumonia. Patient believes that she got some dirty bath water down her tracheostomy tube that caused her to vomit. Patient is concerned that she may have aspirated either the dirty bath water or the vomitus and would like to be evaluated for aspiration pneumonia. Patient does endorse mild shortness of breath and coughing. Related Data Home Medications Medication Instructions Recorded Confirmed albuterol sulfate 90 mcg/actuation 2 puff inhalation Q4-6H 12/15/23 12/15/23 aerosol inhaler amlodipine 2.5 mg tablet 2.5 mg PO DAILY 12/15/23 12/15/23 fluticasone 250 mcg-salmeterol 50 1 inh inhalation DAILY 12/15/23 12/15/23 mcg/dose blistr powdr for inhalation (Wixela Inhub) ipratropium bromide 21 mcg (0.03 2 spray intranasal BID 12/15/23 12/15/23 %) nasal spray ondansetron 4 mg disintegrating 4 mg PO Q8H 12/15/23 12/15/23 tablet Previous Rx's Medication Instructions Recorded cetirizine 10 mg tablet 20 mg (2 x 10 mg) PO BID #120 tabs 12/15/23 epinephrine 0.3 mg/0.3 mL 0.3 mg (0.3 mL) IM Q5-15M PRN 02/21/24 injection, auto-injector anaphylaxis #2 ea epinephrine 0.3 mg/0.3 mL 0.3 mg (0.3 mL) IM Q5-15M PRN VCD 03/09/24 injection, auto-injector #2 ea amoxicillin 875 mg-potassium 1 tab PO BID 5 days #10 tabs 10/16/24 clavulanate 125 mg tablet Allergies Allergy/AdvReac Type Severity Reaction Status Date / Time codeine Allergy Unknown VOMITING, Verified 10/16/24 12:16 HIVES shellfish derived Allergy Unknown VOMITING Verified 10/16/24 12:16 adhesive AdvReac Unknown HIVES FROM Verified 10/16/24 12:16 TAPE iodine AdvReac Unknown ITCHING, Verified 10/16/24 12:16 HIVES Review of Systems <PIERCE Urban - Last Filed: 10/16/24 14:02> Review of Systems Narrative: Narrative: See HPI. GENERAL: Denies chills, fatigue, fever, sweats. HEENT: Denies sinus pain, ear pain, sore throat, difficulty swallowing, dizziness. RESPIRATORY: Denies dyspnea, wheezing, sputum. Endorses cough and mild shortness of breath. CARDIOVASCULAR: Denies chest pain, palpitations, edema. GASTROINTESTINAL: Denies nausea, vomiting, abdominal pain, diarrhea, constipation. : Denies dysuria, frequency, incontinence, hematuria, urinary retention, flank pain. MSK: Denies weakness, joint pain, or bony pain. SKIN: Denies rash, skin lesions, or pruritis. NEUROLOGIC: Denies weakness, dizziness, headache, numbness, confusion. PSYCHIATRIC: No concerning psychosocial issues. Patient History <PIERCE Urban - Last Filed: 10/16/24 14:02> Medical History Hypothyroid Surgical History H/O shoulder surgery Social History Smoking Status: Never smoker Smoking Status: Never smoker alcohol intake frequency: holidays/special occasions only Exam <PIERCE Urban - Last Filed: 10/16/24 14:02> Narrative Exam Narrative: Exam Narrative: GENERAL: This is a well-nourished, well-developed patient, in no acute distress. HEAD: Atraumatic. Normocephalic. EYES: Pupils equal round and reactive. Extraocular motions intact. No scleral icterus, injection or drainage. ENT: Nose without bleeding, purulent drainage. Tracheostomy in place. Airway patent. CARDIOVASCULAR: Regular rate and rhythm without murmurs, peripheral pulses intact, cap refill <2 sec. RESPIRATORY: Breath sounds equal and clear bilaterally. No wheezes, rales, or rhonchi. No cough. No increased respiratory effort. No accessory muscle use. GASTROINTESTINAL: Abdomen soft, non-tender, nondistended without guarding or rebound. No suprapubic pain. MSK: Moves all extremities. Normal range of motion, no clubbing or edema. Neurovascularly intact. NEURO: A&O x 3. SKIN: Warm, dry, no rashes or lesions noted. Initial Vital Signs Initial Vital Signs: Vital Signs Temperature 98 F 10/16/24 12:13 Pulse Rate 88 10/16/24 12:13 Respiratory Rate 26 H 10/16/24 12:13 Blood Pressure 159/86 H 10/16/24 12:13 Pulse Oximetry 99 10/16/24 12:13 Oxygen Delivery Method Room Air 10/16/24 12:13 Reviewed <Kiya Goncalves DO - Last Filed: 10/18/24 18:09> Initial Vital Signs Initial Vital Signs: Vital Signs Temperature 98 F 10/16/24 12:13 Pulse Rate 88 10/16/24 12:13 Respiratory Rate 26 H 10/16/24 12:13 Blood Pressure 159/86 H 10/16/24 12:13 Pulse Oximetry 99 10/16/24 12:13 Oxygen Delivery Method Room Air 10/16/24 12:13 Course <PIERCE Urban - Last Filed: 10/16/24 14:02> Orders Ordered: Discontinued Medications Lorazepam (Lorazepam 0.5 Mg Tablet) 2 mg PO NOW ONE Stop: 10/16/24 13:55 Last Admin: 10/16/24 13:59 Dose: 2 mg Documented By: Vital Signs Vital signs: Vital Signs - 8 hr 10/16/24 12:13 10/16/24 13:24 Temperature 98 F Pulse Rate 88 92 H Respiratory Rate 26 H 22 Blood Pressure 159/86 H 140/65 Pulse Oximetry 99 98 Oxygen Delivery Method Room Air Room Air Trach Collar <Kiya Goncalves DO - Last Filed: 10/18/24 18:09> Orders Ordered: Discontinued Medications Lorazepam (Lorazepam 0.5 Mg Tablet) 2 mg PO NOW ONE Stop: 10/16/24 13:55 Last Admin: 10/16/24 13:59 Dose: 2 mg Documented By: Vital Signs Vital signs: Vital Signs - 8 hr 10/16/24 12:13 10/16/24 13:24 Temperature 98 F Pulse Rate 88 92 H Respiratory Rate 26 H 22 Blood Pressure 159/86 H 140/65 Pulse Oximetry 99 98 Oxygen Delivery Method Room Air Room Air Trach Collar MDM - SOB/Dyspnea <PIERCE Urban - Last Filed: 10/16/24 14:02> Differential Diagnosis Differential diagnosis: Likely community acquired pneumonia and other (Aspiration pneumonia) Imaging Data Chest x-ray: Radiologist's Impression: [address] [address] XRay Report Signed Patient: Jhoana Beard MR#: [id number] : 1975 Acct:[id number] Age/Sex: 49 / F Date of Service: 10/16/24 Loc: ED Accession Number: [id number] Procedure: XR chest 2V Ordering Provider: Kiya Goncalves D.O. PROCEDURE: XR CHEST 2V INDICATIONS: aspiration TECHNIQUE: 2 views of the chest were acquired. COMPARISON: [facility], , XR CHEST 1V, 07/24/2024, 20:32. FINDINGS: Surgical changes and devices: A tracheostomy tube is seen in place. Cholecystectomy clips are seen. Lungs and pleura: An incomplete inspiratory result is noted, causing a crowded appearance to the lung markings. No focal infiltrates are seen. No pneumothorax or significant pleural effusions are seen. Mediastinum: Mediastinal contours are normal. Heart size is normal. Bones and chest wall: No suspicious bony abnormalities. Soft tissues appear unremarkable. IMPRESSION: No focal infiltrates are seen. If there is strong clinical concern for developing aspiration pneumonia in this patient, please consider a short term followup examination, as aspiration pneumonia can have a delayed radiographic appearance. Tracheostomy tube seen in place. Dictated by: Kentrell Elaine M.D. on 10/16/2024 at 12:08 Approved by: Kentrell Elaine M.D. on 10/16/2024 at 12:09 [facility] Narrative Medical decision making narrative: 49 year old female with tracheostomy secondary to vocal cord dysfunction, pr esenting to emergency department for concerns over aspiration pneumonia. Patient believes she swallowed bath water into her tracheostomy tube that caused her to vomit and now concerned she may have aspiration pneumonia. Chest x-ray is not confirmatory of pneumonia but due to high suspicion for aspiration pneumonia, will begin antibiotic therapy and recommend patient to have a follow up appointment next week. Patient reports symptoms similar to her vocal cord dysfunction and would like some Ativan. Single dose of oral Ativan provided. Patient's will drive her home. Discussed plan of care and return precautions with patient, who verbalized understanding and was agreeable to course of action. Discharge Plan Departure Patient Disposition: Home Clinical Impression: Aspiration pneumonia Qualifiers: Aspiration pneumonia type: due to vomit Laterality: unspecified laterality Lung location: unspecified part of lung Qualified Code(s): J69.0 - Pneumonitis due to inhalation of food and vomit Instructions: DI for Aspiration Pneumonia Activity Restrictions/Additional Instructions: *You have been diagnosed with suspected aspiration pneumonia. Your chest x-ray does not reveal anything at this time, but aspiration pneumonia can develop. For this reason, we will start you on antibiotics for the next 5 days. I recommend you follow up with your family doctor by next Friday for possible repeat chest x-ray and evaluation, to ensure symptoms are not worsening. *What to do: *Please continue to take your regular medications as directed. [ x] New medication prescriptions sent to your pharmacy: [ ] [ ] New medication written as a paper prescription [ ] No new medications given *Please follow up with your primary care provider in 2-3 days, call for an appointment. Let them know you were seen in the Emergency Department and that we ask that you be seen in follow up. We will electronically transmit a record of today's note if your PCP is in our system *If you do not have a primary care provider please contact the [facility] Resource line at [phone]. They will ask some questions about your medical history and help get you set up with a doctor in the community. ? Return to ER if you should have any new, worsening or concerning symptoms, such as worsening pain, severe headache, confusion, chest pain, difficulty breathing, fever greater than 101 F, shaking chills, persistent vomiting to the point that you cannot drink fluids, or other new or worsening symptoms. Prescriptions: New amoxicillin-pot clavulanate 875-125 mg tablet 1 tab PO BID 5 Days Qty: 10 0RF No Action epinephrine 0.3 mg/0.3 mL auto-injector 0.3 mg IM Q5-15M PRN (Reason: VCD) Qty: 2 0RF Rx Instructions: do not exceed 3 doses per episode epinephrine 0.3 mg/0.3 mL auto-injector 0.3 mg IM Q5-15M PRN (Reason: anaphylaxis) Qty: 2 0RF Rx Instructions: do not exceed 3 doses per episode amlodipine 2.5 mg tablet 2.5 mg PO DAILY ipratropium bromide 21 mcg (0.03 %) spray,non-aerosol 2 spray intranasal BID Rx Instructions: administer into each nostril fluticasone propion-salmeterol [Wixela Inhub] 250-50 mcg/dose blister with device 1 inh inhalation DAILY albuterol sulfate 90 mcg/actuation HFA aerosol inhaler 2 puff inhalation Q4-6H ondansetron 4 mg tablet,disintegrating 4 mg PO Q8H cetirizine 10 mg tablet 20 mg PO BID Qty: 120 5RF Rx Instructions: Start taking 1 tablet daily for 7 days then 1 tablet twice a day for 7 days then 2 tablets twice a day indefinitely Stand Alone Forms: Patient Portal/API/Survey ED Sign-out <Kiya Goncalves DO - Last Filed: 10/18/24 18:09> Cosign ED Attending Cosignature Attestation: I was available for consultation.
[2024-10-16] MEDS: LORazepam 0.5 MG TABLET 2 MG PO (13:59)
== END 2024-10-16 14:16 | disposition home or self-care (01) ==
PROVIDERS: Emergency Provider Registered Nurse; Family Provider Nurse Practitioner Family
DX: J69.0 Pneumonitis due to inhalation of food and vomit (principal); Z93.0 Tracheostomy status
CPT/HCPCS: 71046; 99283

== ENCOUNTER 2025-02-19 16:23 | Emergency (ER) | payer OTHER, SELFPAY ==
[2025-02-19] VITALS (12 sets, daily range): BP systolic 109–151; BP diastolic 70–104; PULSE 79–138; RESP 18–20; TEMP 37; O2SAT 92–99; BMI 42.5
--- NOTE | 2025-02-19 16:34 | ED.GENADULT ---
HPI - General Adult <Biancatony Broussard, - Last Filed: 02/20/25 07:37> General Chief complaint: Shortness of Breath/Dyspnea Stated complaint: trach exposed to bleach, aspirating, vomiting Time Seen by Provider: 02/19/25 16:28 Source: patient, RN notes reviewed and old records reviewed Mode of arrival: Ambulatory Limitations: no limitations History of Present Illness HPI narrative: 49-year-old female history of vocal cord dysfunction with tracheostomy presents with discomfort at are trach. Patient states her has been cleaning of the bathroom they had used bleach when she walked by she inhaled the fumes and started having a coughing fit. States she was started coughing so hard that she had was coughing up fluid and then ultimately vomited. She was her albuterol inhaler and also had her son suctioned her which both helped. Patient states her breathing has significantly improved but there was quite a bit of pain at her trach site and she noted it was about [facility] out. When she tried to push it back in that has quite a bit of resistance. She states she took some ibuprofen and feels like that is starting to improve she was able to push it back but is still little bit uncomfortable when it is fully seated. She states it was also making her cough quite a bit but that is also starting to improve. Patient states overall her symptoms seemed to be improving and her breathing is much better. Her trach was placed at [facility]. Related Data Home Medications Medication Instructions Recorded Confirmed albuterol sulfate 90 mcg/actuation 2 puff inhalation Q4-6H 12/15/23 12/15/23 aerosol inhaler amlodipine 2.5 mg tablet 2.5 mg PO DAILY 12/15/23 12/15/23 fluticasone 250 mcg-salmeterol 50 1 inh inhalation DAILY 12/15/23 12/15/23 mcg/dose blistr powdr for inhalation (Wixela Inhub) ipratropium bromide 21 mcg (0.03 2 spray intranasal BID 12/15/23 12/15/23 %) nasal spray ondansetron 4 mg disintegrating 4 mg PO Q8H 12/15/23 12/15/23 tablet Previous Rx's Medication Instructions Recorded cetirizine 10 mg tablet 20 mg (2 x 10 mg) PO BID #120 tabs 12/15/23 epinephrine 0.3 mg/0.3 mL 0.3 mg (0.3 mL) IM Q5-15M PRN 02/21/24 injection, auto-injector anaphylaxis #2 ea epinephrine 0.3 mg/0.3 mL 0.3 mg (0.3 mL) IM Q5-15M PRN VCD 03/09/24 injection, auto-injector #2 ea Allergies Allergy/AdvReac Type Severity Reaction Status Date / Time codeine Allergy Unknown VOMITING, Verified 10/16/24 12:16 HIVES shellfish derived Allergy Unknown VOMITING Verified 10/16/24 12:16 adhesive AdvReac Unknown HIVES FROM Verified 10/16/24 12:16 TAPE iodine AdvReac Unknown ITCHING, Verified 10/16/24 12:16 HIVES Review of Systems <Bianca Broussard DO - Last Filed: 02/20/25 07:37> Review of Systems ROS Unobtainable: All systems reviewed & are unremarkable except as noted in HPI and below Patient History <Bianca Broussard DO - Last Filed: 02/20/25 07:37> Medical History Hypothyroid Surgical History H/O shoulder surgery Social History Smoking Status: Never smoker alcohol intake frequency: holidays/special occasions only Exam <DO Nena Hutchinson Last Filed: 02/20/25 07:37> Narrative Exam Narrative: GEN: well nourished, well appearing female, alert and oriented x 3, patient appears to be in mild distress. HEENT: Atraumatic, pupils are equal round reactive to light, extraocular movements are intact, nares are clear, TMs are clear with no fluid, there is no conjunctival pallor. Throat is clear without any exudates, erythema, tonsillar enlargement or uvular deviation, patient was trach is slightly out but the majority is in place, patient is able to advance it does cause her to cough a little bit. She was not in significant pain. She was tolerating her secretions without issue has a normal speech. No stridor or wheeze. She was good air movement through the trach itself. HEART: Regular rate and rhythm without murmur, clicks, rubs. No carotid bruits, pulses are equal in upper and lower extremities LUNGS:Lungs clear to auscultation, no wheezes, rales, crackles, chest moves symmetrically ABD:bowel sounds normal, soft, non-tender, no guarding, rebound, rigidity, no masses noted, no hepatosplenomegaly MSCL: full range of motion, normal gait into the department. NEURO:CN 2-12 intact, sensation normal. Initial Vital Signs Initial Vital Signs: Vital Signs Temperature 98.6 F 02/19/25 16:28 Pulse Rate 123 H 02/19/25 16:28 Respiratory Rate 20 02/19/25 16:28 Blood Pressure 138/104 H 02/19/25 16:28 Pulse Oximetry 96 02/19/25 16:28 Oxygen Delivery Method Room Air 02/19/25 16:28 <Bartolo Rosario, DO - Last Filed: 02/19/25 19:49> Initial Vital Signs Initial Vital Signs: Vital Signs Temperature 98.6 F 02/19/25 16:28 Pulse Rate 123 H 02/19/25 16:28 Respiratory Rate 20 02/19/25 16:28 Blood Pressure 138/104 H 02/19/25 16:28 Pulse Oximetry 96 02/19/25 16:28 Oxygen Delivery Method Room Air 02/19/25 16:28 Course <Bianca Broussard, DO - Last Filed: 02/20/25 07:37> Orders Ordered: Discontinued Medications Dexamethasone (Dexamethasone 10 Mg/Ml Vial) 10 mg PO NOW ONE Stop: 02/19/25 16:53 Last Admin: 02/19/25 17:00 Dose: 10 mg Documented By: MPO Vital Signs Vital signs: Vital Signs - 8 hr 02/19/25 16:28 02/19/25 16:33 02/19/25 16:33 Temperature 98.6 F Pulse Rate 123 H 138 H Respiratory Rate 20 Blood Pressure 138/104 H 138/104 H Pulse Oximetry 96 99 Oxygen Delivery Method Room Air 02/19/25 17:00 02/19/25 17:00 02/19/25 17:30 Temperature Pulse Rate 133 H 102 H Respiratory Rate Blood Pressure 150/98 H Pulse Oximetry 96 98 Oxygen Delivery Method 02/19/25 17:42 02/19/25 17:42 02/19/25 17:43 Temperature Pulse Rate 105 H 102 H Respiratory Rate Blood Pressure 151/98 H 151/98 H Pulse Oximetry 97 Oxygen Delivery Method 02/19/25 18:00 02/19/25 18:30 02/19/25 18:47 Temperature Pulse Rate 100 H 85 88 Respiratory Rate Blood Pressure Pulse Oximetry 97 96 96 Oxygen Delivery Method 02/19/25 18:47 Temperature Pulse Rate Respiratory Rate Blood Pressure 109/70 Pulse Oximetry Oxygen Delivery Method <Bartolo Rosario, DO - Last Filed: 02/19/25 19:49> Orders Ordered: Discontinued Medications Dexamethasone (Dexamethasone 10 Mg/Ml Vial) 10 mg PO NOW ONE Stop: 02/19/25 16:53 Last Admin: 02/19/25 17:00 Dose: 10 mg Documented By: CHRIS Vital Signs Vital signs: Vital Signs - 8 hr 02/19/25 16:28 02/19/25 16:33 02/19/25 16:33 Temperature 98.6 F Pulse Rate 123 H 138 H Respiratory Rate 20 Blood Pressure 138/104 H 138/104 H Pulse Oximetry 96 99 Oxygen Delivery Method Room Air 02/19/25 17:00 02/19/25 17:00 02/19/25 17:30 Temperature Pulse Rate 133 H 102 H Respiratory Rate Blood Pressure 150/98 H Pulse Oximetry 96 98 Oxygen Delivery Method 02/19/25 17:42 02/19/25 17:42 02/19/25 17:43 Temperature Pulse Rate 105 H 102 H Respiratory Rate Blood Pressure 151/98 H 151/98 H Pulse Oximetry 97 Oxygen Delivery Method 02/19/25 18:00 02/19/25 18:30 02/19/25 18:47 Temperature Pulse Rate 100 H 85 88 Respiratory Rate Blood Pressure Pulse Oximetry 97 96 96 Oxygen Delivery Method 02/19/25 18:47 Temperature Pulse Rate Respiratory Rate Blood Pressure 109/70 Pulse Oximetry Oxygen Delivery Method Medical Decision Making <Bianca Broussard DO - Last Filed: 02/20/25 07:37> MDM Narrative Medical decision making narrative: 49-year-old female history of trach (#6 [place]) in place for vocal cord dysfunction. Patient had coughing fit that caused it to be pushed forward a little bit and quite a bit of irritation uneven vomiting. She states since then things have improved after using her inhaler, taking some NSAIDs and suctioning at home but is still uncomfortable to fully push back into position. She states it continues to improve as time has progressed. We will obtain soft tissue neck x-ray to make sure no major changes to placement we will also do a dose of oral dexamethasone to see if this can help with any swelling. Patient is in no respiratory distress able to speak normally and ambulate about the department without issue. Soft tissue neck x-ray, airway appears patent, no significant trace to abnormality seen prevertebral soft tissues normal thickness glottis neb without folds appear normal no soft tissue gas. Unremarkable tracheostomy tube by plain film. Patient received dexamethasone orally. On recheck at 1740 patient is continuing to feel improved, can place her trach fully flush more frequently but is still holding it out a little bit. She would like to return home but her feels uncomfortable with the plan. Discussed it has only been 30 minutes she was had her dexamethasone we will continue to monitor and if continuing to improve we will plan for discharge home. Patient signed out to Dr. Rosario while monitoring. Patient signed out to me at shift change pending final decision by . Vital signs, nurse triage note, medication list, previous ER visits, and all imaging modalities reviewed. patient is sitting comfortably in stretcher in room 2 in no respiratory distress feeling much better and improved ready to go home. at bedside with patient also feel she is ready to go home with no further concerns at this time. <Bartolo Rosario, DO - Last Filed: 02/19/25 19:49> [facility] Narrative Medical decision making narrative: 49-year-old female history of trach (#6 Sh[place]) in place for vocal cord dysfunction. Patient had coughing fit that caused it to be pushed forward a little bit and quite a bit of irritation uneven vomiting. She states since then things have improved after using her inhaler, taking some NSAIDs and suctioning at home but is still uncomfortable to fully push back into position. She states it continues to improve as time has progressed. We will obtain soft tissue neck x-ray to make sure no major changes to placement we will also do a dose of oral dexamethasone to see if this can help with any swelling. Patient is in no respiratory distress able to speak normally and ambulate about the department without issue. Soft tissue neck x-ray, airway appears patent, no significant trace to abnormality seen prevertebral soft tissues normal thickness glottis neb without folds appear normal no soft tissue gas. Unremarkable tracheostomy tube by plain film. Patient received dexamethasone orally. On recheck at 1740 patient is continuing to feel improved, can place her trach fully flush more frequently but is still holding it out a little bit. She would like to return home but her has been feels uncomfortable with the plan. Discussed it has only been 30 minutes she was had her dexamethasone we will continue to monitor and if continuing to improve we will plan for discharge home. Patient signed out to Dr. Rosario while monitoring. Patient signed out to me at shift change pending final decision by . Vital signs, nurse triage note, medication list, previous ER visits, and all imaging modalities reviewed. patient is sitting comfortably in stretcher in room 2 in no respiratory distress feeling much better and improved ready to go home. at bedside with patient also feel she is ready to go home with no further concerns at this time. Discharge Plan Departure Patient Disposition: Home Clinical Impression: Tracheostomy in place Instructions: Tracheostomy-Adult Activity Restrictions/Additional Instructions: I hope you continue to feel improved. I suspect that you have some swelling and irritation of the tissue from all of the coughing and vomiting, if you develop new changes or have any difficulty with your trach please return immediately. Prescriptions: No Action epinephrine 0.3 mg/0.3 mL auto-injector 0.3 mg IM Q5-15M PRN (Reason: VCD) Qty: 2 0RF Rx Instructions: do not exceed 3 doses per episode epinephrine 0.3 mg/0.3 mL auto-injector 0.3 mg IM Q5-15M PRN (Reason: anaphylaxis) Qty: 2 0RF Rx Instructions: do not exceed 3 doses per episode amlodipine 2.5 mg tablet 2.5 mg PO DAILY ipratropium bromide 21 mcg (0.03 %) spray,non-aerosol 2 spray intranasal BID Rx Instructions: administer into each nostril fluticasone propion-salmeterol [Wixela Inhub] 250-50 mcg/dose blister with device 1 inh inhalation DAILY albuterol sulfate 90 mcg/actuation HFA aerosol inhaler 2 puff inhalation Q4-6H ondansetron 4 mg tablet,disintegrating 4 mg PO Q8H cetirizine 10 mg tablet 20 mg PO BID Qty: 120 5RF Rx Instructions: Start taking 1 tablet daily for 7 days then 1 tablet twice a day for 7 days then 2 tablets twice a day indefinitely Referrals: Gabriele Varner ARNP [Primary Care Provider] - Stand Alone Forms: Patient Portal/API/Survey
--- NOTE | 2025-02-19 16:52 | DI.RAD.S_ITS ---
PROCEDURE: XR SOFT TISSUE NECK INDICATIONS: trach uncomfortable after cough attack but doing better. TECHNIQUE: 2 views of the neck were acquired. COMPARISON: [facility], CR, XR CHEST 2V, 10/16/2024, 12:57. FINDINGS: Airway: The airway appears patent. The limits of plain film, no significant tracheostomy tube abnormality is seen. Soft tissues: Prevertebral soft tissues are normal in thickness. The epiglottis and aryepiglottic folds appear normal. No soft tissue gas. Bones: No suspicious bony lesions. Visualized cervical spine is normally aligned. IMPRESSION: Unremarkable tracheostomy tube by plain film. Dictated by: Kentrell Elaine M.D. on 02/19/2025 at 16:32 Approved by: Kentrell Elaine M.D. on 02/19/2025 at 16:32
[2025-02-19] MEDS: DEXAMETHASONE 10 MG/ML VIAL PO (17:00)
--- NOTE | 2025-02-19 17:03 | PC.NURSE ---
Pt came to ED today because she and her were cleaning the bathroom with bleach and pt began coughing due to inhaling fumes. Pt vomited due to coughing fit which caused her trach to come shelter out. Pt states that there was some swelling at the trach site and resistance whens he tried to push trach back in but she took ibuprofen and swelling has reduced. Reports that there is still some discomfort when trach is pushed back in fully. Pt has hx of vocal cord disfunction and had trach placed at [facility] in september 2024. Pt does have intermittent cough but no obvious respiratory distress observed.
--- NOTE | 2025-02-19 18:50 | PC.NURSE ---
Pt states that she feels safe to go home. Pt states that she can push trach back in all the way. Wants to go home.
== END 2025-02-19 19:56 | disposition home or self-care (01) ==
PROVIDERS: Emergency Provider Family Medicine; Family Provider Nurse Practitioner Family; PCP Nurse Practitioner Family
DX: R05.9 Cough, unspecified (principal); T54.91XA Toxic effect of unspecified corrosive substance, accidental (unintentional), initial encounter; Z93.0 Tracheostomy status
CPT/HCPCS: 70360; 99283; J1100

== ENCOUNTER 2025-04-16 15:01 | Emergency (ER) | payer OTHER, SELFPAY ==
[2025-04-16] VITALS (11 sets, daily range): BP systolic 98–158; BP diastolic 60–92; PULSE 86–116; RESP 13–36; TEMP 36.9; O2SAT 90–99; BMI 42.5
--- NOTE | 2025-04-16 15:12 | PC.NURSE ---
Pt unable to speak. Pt breathing in raspy sounds. Family at bedside. Pt able to communicate with writting. Not able to speak through trach.
[2025-04-16] MEDS: EPINEPHrine 1 MG/ML 0.5 MG IM (15:51)
--- NOTE | 2025-04-16 16:02 | PC.NURSE ---
Pt sitting up in [facility] in room 1. Humidified air supplied to pt. States that she is feeling much better. Especially after ativan given orally. Was able to advance trach.
--- NOTE | 2025-04-16 16:16 | PC.NURSE ---
Pt states that she is feeling much more relaxed. Is able to talk more freely.
--- NOTE | 2025-04-16 18:00 | PC.NURSE ---
Pt reports that she is ready to go home. Speaking in full sentences. Dr Gao notified.
--- NOTE | 2025-04-16 18:33 | ED_ITS ---
HPI - SOB/Dyspnea General Chief Complaint: Shortness of Breath/Dyspnea Stated Complaint: TRACHEOSTOMY LARANGEAL OBSTRUCTION, VCD Time Seen by Provider: 04/16/25 15:43 Source: patient Mode of arrival: Ambulatory History of Present Illness HPI Narrative: Pleasant 49-year-old woman with a history of vocal cord spasmodic disorder comes to the ER with an episode of the vocal cord spasms which makes it difficult to breathe, in addition this time her trach tube has become anteriorly dislodged. She has been seen in our facility for similar presentation in the past including the dislodging of the trach tube. She is having significant respiratory distress and difficulty breathing on presentation, although maintaining her oxygen saturation on room air. Related Data Home Medications ?Medication ?Instructions ?Recorded ?Confirmed albuterol sulfate 90 mcg/actuation 2 puff inhalation Q 4-6H 12/15/23 12/15/23 aerosol inhaler amlodipine 2.5 mg tablet 2.5 mg PO DAILY 12/15/2308/29 fluticasone 250 mcg-salmeterol 50 1 inh inhalation KARL LY 12/15/23 12/15/23 mcg/dose blistr powdr for inhalation (Wixela Inhub) ipratropium bromide 21 mcg (0.03 2 spray intranasal BI D 12/15/23 12/15/23 %) nasal spray ondansetron 4 mg disintegrating 4 mg PO Q8H 12/15/23 0 12/15/23 tablet Previous Rx's ?Medication ?Instructions ?Recorded cetirizine 10 mg tablet 20 mg (2 x 10 mg) PO BID #12 0 tabs 12/15/23 epinephrine 0.3 mg/0.3 mL 0.3 mg (0.3 mL) IM Q5-15M OK N 02/21/24 injection, auto-injector anaphylaxis #2 ea epinephrine 0.3 mg/0.3 mL 0.3 mg (0.3 mL) IM Q5-15M OK N VCD 03/09/24 injection, auto-injector #2 ea Allergies Allergy/AdvReac Type Severity Reaction Status Date / Time codeine Allergy Unknown VOMITING, Verified 04/16/25 15:06 HIVES shellfish derived Allergy Unknown VOMITING Verified 04/16/25 15:06 adhesive AdvReac Unknown HIVES FROM Verified 04/16/25 15:06 TAPE iodine AdvReac Unknown ITCHING, Verified 04/16/25 15:06 HIVES Patient History Medical History Hypothyroid Surgical History H/O shoulder surgery alcohol intake frequency: holidays/special occasions only Exam Initial Vital Signs Initial Vital Signs: Vital Signs Temperature 98.5 F 04/16/25 15:06 Pulse Rate 87 04/16/25 15:06 Respiratory Rate 20 04/16/25 15:06 Blood Pressure 158/77 H 04/16/25 15:06 Pulse Oximetry 97 04/16/25 15:06 Oxygen Delivery Method Room Air 04/16/25 15:06 Const General: acute distress and in distress HENMT Head: normocephalic and atraumatic Mouth: oropharynx normal Eyes General: Yes appearance normal, both eyes and all related structures Neck Neck: other (spasm of the neck msucles and anteriorly displaced tracheostomy) Carotids: no bruits Resp Effort & Inspection: audible wheezes, labored, respiratory distress and uses accessory muscles Auscultation: clear to auscultation bilaterally Cardio Rate: regular rate Rhythm: regular rhythm Heart Sounds: S1 normal and S2 normal GI Palpation: soft and No tender Auscultation: normal bowel sounds Course Course Course Narrative: Patient seen and examined immediately upon being roomed in the ER. She was having significant respiratory distress and was not able to speak because of this. We are communicating through her writing on a piece of paper and we prepared for intubation and worst case scenario. She was given Ativan, Solu- Medrol and IM epinephrine and humidified air which she is use before to relieve these symptoms. Thankfully these interventions were effective and the patient is spasms stopped and then she was able to successfully repositioned in the tracheostomy tube. At this point, the patient was feeling comfortable to go home. Review of her previous ER record shows that this is how her ER visits usually go. I advised her to return to the hospital for any change or worsening in her condition especially difficulty breathing or problems with her tracheostomy. The patient was in agreement with this plan. Orders Ordered: Discontinued Medications Diazepam (Diazepam 10 Mg/2 Ml Syringe) 10 mg IV NOW ONE Stop: 04/16/25 15:47 Last Admin: 04/16/25 15:52 Dose: 10 mg Documented By: Diazepam (Diazepam 10 Mg/2 Ml Syringe) 5 mg IV NOW ONE Stop: 04/16/25 15:48 Last Admin: 04/16/25 15:52 Dose: Not Given Documented By: Epinephrine HCl (Epinephrine 1 Mg/Ml) 0.5 mg IM NOW ONE Stop: 04/16/25 15:47 Last Admin: 04/16/25 15:51 Dose: 0.5 mg Documented By: Lorazepam (Lorazepam 0.5 Mg Tablet) 1 mg PO NOW ONE Stop: 04/16/25 15:27 Last Admin: 04/16/25 15:30 Dose: 1 mg Documented By: Methylprednisolone (Methylprednisolone 125 Mg/2 Ml Vial) 125 mg IV NOW ONE Stop: 04/16/25 15:38 Last Admin: 04/16/25 15:45 Dose: 125 mg Documented By: Vital Signs Vital signs: Vital Signs - 8 hr 04/16/25 15:06 04/16/25 15:33 04/16/25 15:43 Temperature 98.5 F Pulse Rate 87 86 93 H Respiratory Rate 20 14 20 Blood Pressure 158/77 H Pulse Oximetry 97 98 Oxygen Delivery Method Room Air Trach Collar 04/16/25 15:48 04/16/25 15:48 04/16/25 15:58 Temperature Pulse Rate 91 H Respiratory Rate 13 Blood Pressure 147/92 H Pulse Oximetry 98 97 Oxygen Delivery Method Room Air Trach Collar 04/16/25 16:00 04/16/25 16:00 04/16/25 16:30 Temperature Pulse Rate 91 H 103 H Respiratory Rate 26 H 18 Blood Pressure 125/76 Pulse Oximetry 97 99 Oxygen Delivery Method Trach Collar 04/16/25 16:30 04/16/25 17:00 04/16/25 17:00 Temperature Pulse Rate 100 H Respiratory Rate 15 Blood Pressure 98/60 140/73 Pulse Oximetry 90 L Oxygen Delivery Method 04/16/25 17:30 04/16/25 17:30 04/16/25 18:00 Temperature Pulse Rate 103 H 96 H Respiratory Rate 22 14 Blood Pressure 119/65 Pulse Oximetry 96 99 Oxygen Delivery Method Room Air 04/16/25 18:00 Temperature Pulse Rate Respiratory Rate Blood Pressure 124/73 Pulse Oximetry Oxygen Delivery Method MDM - SOB/Dyspnea Differential Diagnosis Differential diagnosis: Likely other (tracheostomy failure/plugging/dislodging) Discharge Plan Departure Patient Disposition: Home Clinical Impression: Shortness of Breath Activity Restrictions/Additional Instructions: If there is any change or worsening in your condition such as difficulty breat renea or more problems with your tracheostomy tube or another VSD attack then please return to the ER immediately for further evaluation and treatment. Otherwise, please follow-up with your doctors including your PCP and your surgeon that manages the trach tube as soon as possible. Prescriptions: No Action epinephrine 0.3 mg/0.3 mL auto-injector 0.3 mg IM Q5-15M PRN (Reason: VCD) Qty: 2 0RF Rx Instructions: do not exceed 3 doses per episode epinephrine 0.3 mg/0.3 mL auto-injector 0.3 mg IM Q5-15M PRN (Reason: anaphylaxis) Qty: 2 0RF Rx Instructions: do not exceed 3 doses per episode amlodipine 2.5 mg tablet 2.5 mg PO DAILY ipratropium bromide 21 mcg (0.03 %) spray,non-aerosol 2 spray intranasal BID Rx Instructions: administer into each nostril fluticasone propion-salmeterol [Wixela Inhub] 250-50 mcg/dose blister with device 1 inh inhalation DAILY albuterol sulfate 90 mcg/actuation HFA aerosol inhaler 2 puff inhalation Q4-6H ondansetron 4 mg tablet,disintegrating 4 mg PO Q8H cetirizine 10 mg tablet 20 mg PO BID Qty: 120 5RF Rx Instructions: Start taking 1 tablet daily for 7 days then 1 tablet twice a day for 7 days then 2 tablets twice a day indefinitely Referrals: Gabriele Varner ARNP [Primary Care Provider, Nursing] Stand Alone Forms: Patient Portal/API
== END 2025-04-16 18:54 | disposition home or self-care (01) ==
PROVIDERS: Emergency Provider Emergency Medicine; Family Provider Nurse Practitioner Family; PCP Nurse Practitioner Family; Referring Provider Emergency Medicine
DX: R06.02 Shortness of breath (principal)
CPT/HCPCS: 96372; 96374; 96375; 99284; J0165; J2919; J3360

== ENCOUNTER 2025-06-23 12:09 | Emergency (ER) | payer OTHER, SELFPAY ==
[2025-06-23] VITALS (12 sets, daily range): BP systolic 115–169; BP diastolic 63–98; PULSE 64–100; RESP 18–24; TEMP 36.9; O2SAT 86–100
--- NOTE | 2025-06-23 12:19 | ED.CHESTPAIN ---
HPI - Chest Pain General Chief Complaint: Upper Respiratory Symptoms Stated Complaint: Airway Closing/sob Time Seen by Provider: 06/23/25 12:17 History of Present Illness HPI narrative: 50-year-old female history of vocal cord dysfunction with tracheostomy was just seen by Dr. Rios at [facility] this past Friday for routine check. This morning she started experiencing shortness of breath difficulty breathing with stridor noise coming from the tracheostomy site. Patient denies increased coughing, chest pain, fever, chills, bodyaches, drainage swelling or bleeding from the tracheostomy site. Other than what is stated 14 point review of system is negative. Related Data Home Medications ?Medication ?Instructions ?Recorded ?Confirmed albuterol sulfate 90 mcg/actuation 2 puff inhalation Q4-6H 12/15/23 12/15/23 aerosol inhaler amlodipine 2.5 mg tablet 2.5 mg PO DAILY 12/15/23 12/15/23 fluticasone 250 mcg-salmeterol 50 1 inh inhalation DAILY 12/15/23 12/15/23 mcg/dose blistr powdr for inhalation (Wixela Inhub) ipratropium bromide 21 mcg (0.03 2 spray intranasal BID 12/15/23 12/15/23 %) nasal spray ondansetron 4 mg disintegrating 4 mg PO Q8H 12/15/23 12/15/23 tablet Previous Rx's ?Medication ?Instructions ?Recorded cetirizine 10 mg tablet 20 mg (2 x 10 mg) PO BID #120 tabs 12/15/23 epinephrine 0.3 mg/0.3 mL 0.3 mg (0.3 mL) IM Q5-15M PRN 02/21/24 injection, auto-injector anaphylaxis #2 ea epinephrine 0.3 mg/0.3 mL 0.3 mg (0.3 mL) IM Q5-15M PRN VCD 03/09/24 injection, auto-injector #2 ea Allergies Allergy/AdvReac Type Severity Reaction Status Date / Time codeine Allergy Unknown VOMITING, Verified 04/16/25 15:06 HIVES shellfish derived Allergy Unknown VOMITING Verified 04/16/25 15:06 adhesive AdvReac Unknown HIVES FROM Verified 04/16/25 15:06 TAPE iodine AdvReac Unknown ITCHING, Verified 04/16/25 15:06 HIVES Review of Systems Review of Systems ROS Unobtainable: All systems reviewed & are unremarkable except as noted in HPI and below Patient History Medical History Hypothyroid Surgical History H/O shoulder surgery alcohol intake frequency: holidays/special occasions only Exam Narrative Exam Narrative: GENERAL: [50] year old patient appears stated age. Well-developed patient, in mild distress. HEAD: Atraumatic. Normocephalic. EYES: Pupils equal round and reactive. Extraocular motions intact. No scleral icterus. No injection or drainage. ENT: Nose without bleeding, purulent drainage. Throat without erythema, tonsillar hypertrophy or exudate. Airway patent. NECK: Trachea midline. Non tender CARDIOVASCULAR: Regular rate and rhythm without murmurs, gallops, or rubs. RESPIRATORY: Clear to auscultation. Breath sounds equal bilaterally. No wheezes, rales, or rhonchi. GASTROINTESTINAL: Abdomen soft, non-tender, nondistended. EXTREMITIES: No edema or joint tenderness. BACK: Nontender without deformity or crepitance. No flank tenderness. NEURO: AOx3. SKIN: No rash or erythema of visible areas Initial Vital Signs Initial Vital Signs: Vital Signs Pulse Rate 100 H 06/23/25 12:18 Pulse Oximetry 100 06/23/25 12:18 Course Orders Ordered: ED Orders 06/23/25 12:00 Blood Culture Stat Complete Blood Count AUTO DIFF Stat Comprehensive Metabolic Panel Stat Lactate (Lactic Acid) Stat Lipase Stat Troponin & CK Cardiac Panel Stat 06/23/25 12:36 XR chest 1V Stat EKG-12 Lead Stat 06/23/25 13:30 Covid-19 + FLU A/B + RSV - PCR Stat 06/23/25 14:03 XR soft tissue neck Stat 06/23/25 14:22 Wound Culture and Gram Stain Stat Discontinued Medications Dexmedetomidine HCl (Dexmedetomidine 200 Mcg/2 Ml Vial) 8 mcg IV NOW ONE Stop: 06/23/25 12:22 Last Admin: 06/23/25 12:37 Dose: Not Given Documented By: GI Dexmedetomidine HCl (Dexmedetomidine 200 Mcg/2 Ml Vial) 50 mcg IV NOW ONE Stop: 06/23/25 12:33 Last Admin: 06/23/25 13:08 Dose: Not Given Documented By: ODALIS Dexmedetomidine HCl (Dexmedetomidine 200 Mcg/2 Ml Vial) 25 mcg IV NOW ONE Stop: 06/23/25 13:16 Last Admin: 06/23/25 13:17 Dose: 25 mcg Documented By: ODALIS Lorazepam (Lorazepam 2 Mg/Ml Inj) 2 mg IV NOW ONE Stop: 06/23/25 12:26 Last Admin: 06/23/25 12:28 Dose: 2 mg Documented By: ODALIS Methylprednisolone (Methylprednisolone Succ 125 Mg/2 Ml Vial) 125 mg IV NOW ONE Stop: 06/23/25 12:26 Last Admin: 06/23/25 12:33 Dose: 125 mg Documented By: ODALIS Vital Signs Vital signs: Vital Signs - 8 hr 06/23/25 12:18 06/23/25 12:20 06/23/25 12:20 Temperature Pulse Rate 100 H 98 H Respiratory Rate Blood Pressure 169/98 H Pulse Oximetry 100 99 Oxygen Delivery Method Oxygen Flow Rate 06/23/25 12:21 06/23/25 12:30 06/23/25 12:31 Temperature 98.4 F Pulse Rate 74 82 Respiratory Rate 24 Blood Pressure 169/98 H 133/63 Pulse Oximetry 100 98 Oxygen Delivery Method Room Air Oxygen Flow Rate 06/23/25 12:31 06/23/25 13:00 06/23/25 13:16 Temperature Pulse Rate 80 67 Respiratory Rate Blood Pressure 115/71 Pulse Oximetry 100 86 L Oxygen Delivery Method Nasal Cannula Oxygen Flow Rate 2 06/23/25 13:16 06/23/25 13:30 06/23/25 14:00 Temperature Pulse Rate 70 72 64 Respiratory Rate 21 Blood Pressure Pulse Oximetry 93 100 97 Oxygen Delivery Method Room Air Oxygen Flow Rate 06/23/25 14:20 06/23/25 14:20 06/23/25 14:30 Temperature Pulse Rate 79 Respiratory Rate 20 Blood Pressure 140/74 143/76 H Pulse Oximetry 99 Oxygen Delivery Method Oxygen Flow Rate 06/23/25 14:30 Temperature Pulse Rate 66 Respiratory Rate 21 Blood Pressure Pulse Oximetry 98 Oxygen Delivery Method Oxygen Flow Rate MDM - Chest Pain Lab Data 06/23/25 12:00 06/23/25 12:00 Labs: Lab Results 06/23/25 06/23/25 Range/Units 12:00 13:30 WBC 9.1 (4.5-11.0) X10^3/uL RBC 4.39 (4.0-5.2) X10^6/uL Hgb 12.5 (12.0-16.0) g/dL Hct 36.0 (36-46) % MCV 82.1 (80-100) fL MCH 28.4 (26-34) PG MCHC 34.6 (30-36) % RDW 14.2 (11.6-14.8) % Plt Count 251 (150-400) X10^3/uL Neut % (Auto) 68.8 (50-75) % Lymph % (Auto) 25.9 (25-40) % [place] % (Auto) 4.2 (3-14) % Eos % (Auto) 0.7 L (2-4) % Baso % (Auto) 0.4 (0-2) % Neut # (Auto) 6200 (6540-6797) /uL Lymph # (Auto) 2300 (9236-3693) /uL [place] # (Auto) 400 (0-900) /uL Eos # (Auto) 100 (0-450) /uL Baso # (Auto) 0 (0-100) /uL Sodium 140 (137-145) mmol/L Potassium 3.4 (3.4-5.1) mmol/L Chloride 107 (98-107) mmol/L Carbon Dioxide 21 L (22-32) mmol/L BUN 18 H (7-17) mg/dL Creatinine 0.98 (0.52-1.04) mg/dL Estimated GFR > 60 (>60) mL/min BUN/Creatinine Ratio 18.4 (6-22) Glucose 91 (70-99) mg/dL Lactate 0.9 (0.7-2.1) mmol/L Calcium 9.6 (8.4-10.2) mg/dL Total Bilirubin 0.7 (0.2-1.3) mg/dL AST 24 (14-36) IU/L ALT 21 (<35) IU/L Alkaline Phosphatase 78 (38-126) U/L Total Creatine Kinase 83 (30-135) U/L Troponin I < 0.012 (0.01-0.034) ng/mL Total Protein 7.4 (6.3-8.2) g/dL Albumin 4.5 (3.5-5.0) g/dL Globulin 2.9 (1.7-4.1) g/dL Albumin/Globulin Ratio 1.6 (1.0-2.8) Lipase 99 (23-300) U/L SARS-CoV-2 (PCR) Negative (Negative) Influenza A (RT-PCR) Flu a negative (NEGATIVE) Influenza B (RT-PCR) Flu b negative (NEGATIVE) RSV (PCR) Negative (Negative) Imaging Data Chest x-ray: Radiologist's Impression: [address] [address] XRay Report Signed Patient: Jhoana Beard MR#: [id number] : 1975 Acct:[id number] Age/Sex: 50 / F Date of Service: 06/23/25 Loc: ED Accession Number: [id number] Procedure: XR chest 1V Ordering Provider: Bartolo Rosario D.O. PROCEDURE: XR CHEST 1V INDICATIONS: chest pain TECHNIQUE: One view of the chest was acquired. COMPARISON: [facility], , XR CHEST 2V, 10/16/2024, 12:57. [facility], , XR CHEST 1V, 07/24/2024, 20:32. FINDINGS: Surgical changes and devices: Midline tracheostomy. Lungs and pleura: Moderate lung volumes. No focal consolidation. No pneumothorax or pleural effusion. Mediastinum: Mediastinal contours appear normal. Heart size is normal. Bones and chest wall: No suspicious bony lesions. Overlying soft tissues appear unremarkable. IMPRESSION: No consolidative pneumonia. If there is concern for aspiration, consider short interval follow-up radiograph as initial radiographs can be insensitive for aspiration pneumonitis. Extremity x-ray #1: Radiologist's Impression: [address] [address] XRay Report Signed Patient: Jhoana Beard MR#: [id number] : 1975 Acct:[id number] Age/Sex: 50 / F Date of Service: 06/23/25 Loc: ED Accession Number: [id number] Procedure: XR soft tissue neck Ordering Provider: Bartolo Rosario D.O. PROCEDURE: XR SOFT TISSUE NECK INDICATIONS: SHORTNESS OF BREATH, THROAT WHEEZE TECHNIQUE: 2 views of the neck were acquired. COMPARISON: [facility], CR, XR SOFT TISSUE NECK, 02/19/2025, 17:01. FINDINGS: Airway: The airway appears patent. Tracheostomy tube in appropriate position. Soft tissues: Prevertebral soft tissues are normal in thickness. The epiglottis and aryepiglottic folds appear normal. No soft tissue gas. Bones: No suspicious bony lesions. Visualized cervical spine is normally aligned. IMPRESSION: No acute abnormality. ECG Data Interpretation: Sinus Jacky Hr 57 FL 166 QRS [address]-t wave change Change from 07/24/24 [facility] Narrative Medical decision making narrative: All lab work, vital signs, nurse triage note, medication list, previous ER visits, and all imaging studies reviewed. Chest x-ray showed no acute process no consolidative pneumonia. CBC was normal CMP showed CO2 of 21 BUN 18 creatinine 0.98, troponin normal, COVID flu RSV negative. Case discussed with Dr. Ok Giron ENT at [facility] who consulted with the group that initially saw her which was Dr. Rios and they have scoped her this past Friday and discharged on Ciprodex drops with no concerns for occlusion of the trach and a referral has is pending with [facility] neurology and ENT. She is well known to have these previous episodes and that is what prompted the tracheostomy to be placed per Dr. Helder Giron. Patient was given Ativan Solu-Medrol and Precedex here. Discharge Plan Departure Patient Disposition: Home Clinical Impression: Tracheostomy in place, Acute dyspnea Activity Restrictions/Additional Instructions: Return with new or worsening symptoms. Please follow up with [facility] neurology and ENT follow up per Dr. Rios. Prescriptions: No Action epinephrine 0.3 mg/0.3 mL auto-injector 0.3 mg IM Q5-15M PRN (Reason: VCD) Qty: 2 0RF Rx Instructions: do not exceed 3 doses per episode epinephrine 0.3 mg/0.3 mL auto-injector 0.3 mg IM Q5-15M PRN (Reason: anaphylaxis) Qty: 2 0RF Rx Instructions: do not exceed 3 doses per episode amlodipine 2.5 mg tablet 2.5 mg PO DAILY ipratropium bromide 21 mcg (0.03 %) spray,non-aerosol 2 spray intranasal BID Rx Instructions: administer into each nostril fluticasone propion-salmeterol [Wixela Inhub] 250-50 mcg/dose blister with device 1 inh inhalation DAILY albuterol sulfate 90 mcg/actuation HFA aerosol inhaler 2 puff inhalation Q4-6H ondansetron 4 mg tablet,disintegrating 4 mg PO Q8H cetirizine 10 mg tablet 20 mg PO BID Qty: 120 5RF Rx Instructions: Start taking 1 tablet daily for 7 days then 1 tablet twice a day for 7 days then 2 tablets twice a day indefinitely Referrals: Gabriele Varner ARNP [Primary Care Provider, Nursing] Stand Alone Forms: Patient Portal/API
[2025-06-23] MEDS: methylPREDNISolone succ 125 MG/2 ML VIAL IV (12:33)
--- NOTE | 2025-06-23 12:36 | DI.RAD.S_ITS ---
PROCEDURE: XR CHEST 1V INDICATIONS: chest pain TECHNIQUE: One view of the chest was acquired. COMPARISON: [facility], CR, XR CHEST 2V, 10/16/2024, 12:57. [facility], CR, XR CHEST 1V, 07/24/2024, 20:32. FINDINGS: Surgical changes and devices: Midline tracheostomy. Lungs and pleura: Moderate lung volumes. No focal consolidation. No pneumothorax or pleural effusion. Mediastinum: Mediastinal contours appear normal. Heart size is normal. Bones and chest wall: No suspicious bony lesions. Overlying soft tissues appear unremarkable. IMPRESSION: No consolidative pneumonia. If there is concern for aspiration, consider short interval follow-up radiograph as initial radiographs can be insensitive for aspiration pneumonitis. Dictated by: Canelo Wilcox M.D. on 06/23/2025 at 12:58 Approved by: Canelo Wilcox M.D. on 06/23/2025 at 13:00
[2025-06-23 13:15] LABS: Add Manual Diff / Slide Review NO; Hematocrit 36.0 % (36-46); Hemoglobin 12.5 g/dL (12.0-16.0); Lymphocytes Absolute Auto 2300 /uL (1100-4500); Mean Corpuscular HGB Conc 34.6 % (30-36); Mean Corpuscular Hemoglobin 28.4 PG (26-34); Mean Corpuscular Volume 82.1 fL (80-100); Platelet Count 251 X10^3/uL (150-400)
[2025-06-23 13:26] LABS: Lactate (Lactic Acid) 0.9 mmol/L (0.7-2.1)
[2025-06-23 13:27] LABS: Alanine Aminotransferase 21 IU/L (<35); Albumin 4.5 g/dL (3.5-5.0); Albumin Globulin Ratio 1.6 (1.0-2.8); Alkaline Phosphatase 78 U/L (38-126); Blood Urea Nitrogen 18 mg/dL (7-17); Calcium 9.6 mg/dL (8.4-10.2); Carbon Dioxide 21 mmol/L (22-32); Chloride 107 mmol/L (98-107); Creatine Kinase 83 U/L (30-135); Estimated Glomerular Filt Rate > 60 mL/min (>60); Globulin 2.9 g/dL (1.7-4.1); Glucose 91 mg/dL (70-99); HEMOLYSIS < 15 (0-50); Lipase 99 U/L (23-300); Potassium 3.4 mmol/L (3.4-5.1); Sodium 140 mmol/L (137-145); Total Protein 7.4 g/dL (6.3-8.2)
--- NOTE | 2025-06-23 13:34 | PC.NURSE ---
pt came to ED in resp distress. audible wheezes heard on arrival. MD, RT responded to bedside for eval during triage. Patient lungs sounds congested in lower bases but clear in upper lobes. O2 on RA 100%. kept on RA. medication ordered stat.
--- NOTE | 2025-06-23 13:35 | EKG_ITS ---
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
[2025-06-23 13:39] LABS: Troponin I < 0.012 ng/mL (0.01-0.034)
--- NOTE | 2025-06-23 14:03 | DI.RAD.S_ITS ---
PROCEDURE: XR SOFT TISSUE NECK INDICATIONS: SHORTNESS OF BREATH, THROAT WHEEZE TECHNIQUE: 2 views of the neck were acquired. COMPARISON: [facility], CR, XR SOFT TISSUE NECK, 02/19/2025, 17:01. FINDINGS: Airway: The airway appears patent. Tracheostomy tube in appropriate position. Soft tissues: Prevertebral soft tissues are normal in thickness. The epiglottis and aryepiglottic folds appear normal. No soft tissue gas. Bones: No suspicious bony lesions. Visualized cervical spine is normally aligned. IMPRESSION: No acute abnormality. Dictated by: Canelo Wilcox M.D. on 06/23/2025 at 14:49 Approved by: Canelo Wilcox M.D. on 06/23/2025 at 14:52
[2025-06-23 14:12] LABS: Influenza A - CEPHEID Flu A NEGATIVE (NEGATIVE); Influenza B - CEPHEID Flu B NEGATIVE (NEGATIVE)
[2025-06-23 14:17] LABS: COVID-19 CEPHEID 4-PLEX PCR Negative (Negative)
--- NOTE | 2025-06-23 15:03 | PC.NURSE ---
patient is not acute distress. no audible wheezes. shes able to speak and reports feeling better
== END 2025-06-23 15:19 | disposition home or self-care (01) ==
PROVIDERS: Emergency Provider Family Medicine; Family Provider Nurse Practitioner Family; PCP Nurse Practitioner Family
DX: R06.00 Dyspnea, unspecified (principal); R07.9 Chest pain, unspecified; Z93.0 Tracheostomy status
CPT/HCPCS: 36415; 70360; 71045; 80053; 82550; 83605; 83690; 84484; 85025; 87040; 87070; 87075; 87077; 87205; 87637; 93005; 96374; 96375; 99284; J2060; J2919; J3490

== ENCOUNTER 2025-07-29 10:37 | Emergency (ER) | payer OTHER, SELFPAY ==
[2025-07-29 10:42] VITALS: BP 141/93; PULSE 120; RESP 20; TEMP 37; O2SAT 100
[2025-07-29] MEDS: KETOROLAC 30 MG/ML VIAL 15 MG IV (10:53)
[2025-07-29] MEDS: methylPREDNISolone succ 125 MG/2 ML VIAL IV (10:53)
--- NOTE | 2025-07-29 10:57 | PC.NURSE ---
RT in room suctioning patient.
[2025-07-29 11:15] VITALS: PULSE 145; RESP 20; O2SAT 99
[2025-07-29 12:00] VITALS: BP 125/74; PULSE 99; O2SAT 96
[2025-07-29 14:00] VITALS: BP 119/74; PULSE 74; RESP 18; O2SAT 98
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
== END 2025-07-29 14:31 | disposition home or self-care (01) ==
PROVIDERS: Emergency Provider Emergency Medicine; Family Provider Nurse Practitioner Family; PCP Nurse Practitioner Family
DX: J38.5 Laryngeal spasm (principal); T17.800A Unspecified foreign body in other parts of respiratory tract causing asphyxiation, initial encounter; R06.02 Shortness of breath
CPT/HCPCS: 94799; 96374; 96375; 99284; J1885; J2060; J2919

== ENCOUNTER 2025-09-25 12:11 | Emergency (ER) | payer OTHER, SELFPAY ==
[2025-09-25 12:31] VITALS: BP 124/76; PULSE 85; RESP 18; TEMP 36.6; O2SAT 97; BMI 36.8
--- NOTE | 2025-09-25 12:40 | DI.RAD.S_ITS ---
PROCEDURE: XR HAND LT MIN 3V INDICATIONS: wrist/hand injury/pain TECHNIQUE: 3 views of the hand(s) acquired. COMPARISON: None. FINDINGS: Bones: No fractures or dislocations. Carpal bones are normally aligned. No suspicious bony lesions. 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 Soft tissues: No suspicious soft tissue calcifications. IMPRESSION: No acute bony abnormality. Dictated by: Canelo Wilcox M.D. on 09/25/2025 at 13:23 Approved by: Canelo Wilcox M.D. on 09/25/2025 at 13:23
--- NOTE | 2025-09-25 12:40 | DI.RAD.S_ITS ---
PROCEDURE: XR WRIST LT MIN 3V INDICATIONS: wrist/hand injury/pain TECHNIQUE: 4 views of the wrist were acquired. COMPARISON: None. FINDINGS: Bones: No fractures or dislocations. No suspicious bony lesions. Soft tissues: No suspicious soft tissue calcifications. IMPRESSION: No acute bony abnormality. Dictated by: Canelo Wilcox M.D. on 09/25/2025 at 13:23 Approved by: Canelo Wilcox M.D. on 09/25/2025 at 13:23
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
[2025-09-25] MEDS: IBUPROFEN 400 MG TABLET 800 MG PO (15:45)
[2025-09-25 15:51] VITALS: BP 111/80; PULSE 84; RESP 18; O2SAT 96
== END 2025-09-25 15:51 | disposition home or self-care (01) ==
PROVIDERS: Emergency Provider Family Medicine; Family Provider Nurse Practitioner Family; PCP Nurse Practitioner Family
DX: M25.532 Pain in left wrist (principal)
CPT/HCPCS: 73110; 73130; 99283